=== PATIENT | female | born 1960 | race Hispanic/Latino ===

== ENCOUNTER 2016-07-08 21:41 | Emergency (ER) | payer MEDICAID ==
[2016-07-08 23:56] LABS: Bacteria,Urine 2+ /HPF (Negative); Bilirubin,Urine NEG (Negative); Blood,Urine SM (Negative); Ketones,Urine NEG (Negative); Leukocyte Esterase,Urine MOD (Negative); Mucus,Urine FEW /HPF; Nitrite,Urine NEG (Negative); Protein,Urine <15 mg/dL mg/dL (Negative); Urobilinogen,Urine < 2.0 mg/dL (<2.0)
[2016-07-09] MEDS ORDERED: MORPHINE IV ONE (08:01)
--- NOTE | 2016-07-09 08:53 | Cat Scan Report ---
CT scan of abdomen and pelvis without IV contrast: History: Flank pain. Findings Normal lung bases. No pleural pericardial effusion. Normal liver spleen pancreas. Patient status postcholecystectomy. Normal adrenals. There is there is 6 mm, 5 mm, 2 mm and 1 mm nonobstructing calculi noted at the right kidney. There is 2 mm and 1 mm nonobstructing calculi noted left kidney. Normal bladder. No free intraperitoneal fluid or air. No evidence of adenopathy. Grossly normal aorta. Umbilical hernia containing mesenteric fat. Diverticulosis sigmoid colon. No evidence of diverticulitis. No evidence of appendicitis. Impression: Nonobstructing calculi right and left kidney. Umbilical hernia containing mesenteric fat. Diverticulosis sigmoid colon.
--- NOTE | 2016-07-09 10:27 | Emergency Department Report ---
ED Abdominal Pain HPI - General Chief Complaint: Abdominal Pain Stated Complaint: FLANK PAIN Time Seen by Provider: 07/09/16 10:27 Source: patient Mode of arrival: Ambulatory Limitations: No Limitations - History of Present Illness Initial Comments: The patient reports chronic r flank pain and a hx of [place]. She denies chronic pain management at a clinic. She does not have a urologist in the area. Pain is intermittent and not significant at this time. MD Complaint: flank pain -: month(s) Location: R flank Radiation: none Migration to: no migration Quality: aching Consistency: intermittent, now resolved Improves With: nothing Worsens With: nothing Context: other (ks) Associated Symptoms: denies other symptoms - Related Data Previous Rx's Medication Instructions Recorded Last Taken Type HYDROcodone/APAP 5-325 [[place] 1 each PO Q6HR PRN #10 tablet 07/09/16 Unknown Rx 5/325] Nitrofurantoin [place]/M-Cryst 100 mg PO Q12HR #7 capsule 07/09/16 Unknown Rx [Macrobid CAP] Allergies Allergy/AdvReac Type Severity Reaction Status Date / Time acetaminophen Allergy Rash Verified 04/16/13 05:28 [From Darvocet-N 100] ciprofloxacin [From Cipro] Allergy Rash Verified 04/16/13 05:28 hydromorphone HCl Allergy Rash Verified 04/16/13 05:28 [From Dilaudid] ketorolac tromethamine Allergy Rash Verified 04/16/13 05:28 [From Toradol] nalbuphine HCl [From Nubain] Allergy Rash Verified 04/16/13 05:28 propoxyphene napsylate Allergy Rash Verified 04/16/13 05:28 [From Darvocet-N 100] tramadol HCl [From Ultram] Allergy Rash Verified 11/21/15 07:23 ED Review of Systems ROS: Stated complaint: FLANK PAIN Other details as noted in HPI Constitutional: denies: chills, fever Eyes: denies: eye pain, eye discharge, vision change ENT: denies: ear pain, throat pain Respiratory: denies: cough, shortness of breath, wheezing Cardiovascular: denies: chest pain, palpitations Endocrine: no symptoms reported Gastrointestinal: denies: abdominal pain, nausea, diarrhea Genitourinary: denies: urgency, dysuria, discharge Musculoskeletal: back pain. denies: joint swelling, arthralgia Skin: denies: rash, lesions Neurological: denies: headache, weakness, paresthesias Psychiatric: denies: anxiety, depression Hematological/Lymphatic: denies: easy bleeding, easy bruising ED Past Medical Hx - Past Medical History Previous Medical History?: Yes Hx Hypertension: Yes Hx CVA: No Hx Heart Attack/AMI: No Hx Congestive Heart Failure: No Hx Diabetes: No Hx Deep Vein Thrombosis: No Hx Pulmonary Embolism: No Hx GERD: No Hx Liver Disease: No Hx Renal Disease: No Hx Sickle Cell Disease: No Hx Arthritis: No Hx Headaches / Migraines: No Hx Seizures: No Hx Kidney Stones: Yes Hx Psychiatric Treatment: No Hx Asthma: No Hx COPD: No Hx Tuberculosis: No Hx Dementia: No Hx HIV: No Additional medical history: chronic back pain - Surgical History Past Surgical History?: Yes Hx Coronary Stent: No Hx Open Heart Surgery: No Hx Pacemaker: No Hx Internal Defibrillator: No Hx Cholecystectomy: Yes Hx Appendectomy: Yes Hx Breast Surgery: No Additional Surgical History: hysterectomy, hernia repair - Social History Smoking Status: Current Every Day Smoker Substance Use Type: None - Medications Home Medications: Home Medications Medication Instructions Recorded Confirmed Last Taken Type HYDROcodone/APAP 5-325 [[place] 1 each PO Q6HR PRN #10 tablet 07/09/16 Unknown Rx 5/325] Nitrofurantoin [place]/M-Cryst 100 mg PO Q12HR #7 capsule 07/09/16 Unknown Rx [Macrobid CAP] ED Physical Exam - General Limitations: No Limitations General appearance: alert, in no apparent distress - Head Head exam: Present: atraumatic, normocephalic - Eye Eye exam: Present: normal appearance, PERRL, EOMI. Absent: scleral icterus - ENT ENT exam: Present: mucous membranes moist - Neck Neck exam: Present: normal inspection - Respiratory Respiratory exam: Present: normal lung sounds bilaterally. Absent: respiratory distress - Cardiovascular Cardiovascular Exam: Present: regular rate, normal rhythm. Absent: systolic murmur, diastolic murmur, rubs, gallop - GI/Abdominal GI/Abdominal exam: Present: soft, normal bowel sounds. Absent: distended, tenderness, guarding, rebound, rigid, organomegaly, mass, bruit, pulsatile mass - Extremities Exam Extremities exam: Present: normal inspection - Back Exam Back exam: Present: normal inspection - Neurological Exam Neurological exam: Present: alert, oriented X3, CN II-XII intact. Absent: motor sensory deficit - Psychiatric Psychiatric exam: Present: normal affect, normal mood - Skin Skin exam: Present: warm, dry, intact, normal color. Absent: rash ED Course Vital Signs 07/08/16 07/09/16 07/09/16 22:07 03:55 07:30 Temperature 98.5 F 98.1 F Pulse Rate 90 100 H 88 Respiratory 20 20 18 Rate Blood Pressure 151/110 162/100 Blood Pressure 171/93 [Right] O2 Sat by Pulse 99 100 99 Oximetry 07/09/16 08:14 Temperature Pulse Rate Respiratory 18 Rate Blood Pressure Blood Pressure [Right] O2 Sat by Pulse Oximetry - Reevaluation(s) Reevaluation #1: Patient is given analgesia. She is now asymptomatic. She is appropriate for outpatient management. She will be referred 07/09/16 12:04 ED Medical Decision Making - Lab Data Laboratory Results - last 24 hr 07/08/16 22:17 Urine Color Straw Urine Turbidity Clear Urine pH 5.0 Ur Specific [place] 1.013 Urine Protein <15 mg/dl Urine Glucose (UA) Neg Urine Ketones Neg Urine Blood Sm Urine Nitrite Neg Urine Bilirubin Neg Urine Urobilinogen < 2.0 Ur Leukocyte Esterase Mod Urine WBC (Auto) 17.0 H Urine RBC (Auto) 1.0 U Epithel Cells (Auto) < 1.0 Urine Bacteria (Auto) 2+ Amorphous Crystals Few Hyaline Casts 1 Urine Mucus Few - Radiology Data interpreted by me: CT the abdomen showed nonobstructing bilateral nephrolithiasis. There is an umbilical hernia containing mesenteric fat. There is diverticulosis in the sigmoid colon. There is no acute process noted. Critical care attestation.: If time is entered above; I have spent that time in minutes in the direct care of this critically ill patient, excluding procedure time. ED Disposition Clinical Impression: Right flank pain UTI (urinary tract infection) Qualifiers: Urinary tract infection type: site unspecified Hematuria presence: without hematuria Qualified Code(s): N39.0 - Urinary tract infection, site not specified Umbilical hernia Qualifiers: Obstruction and gangrene presence: without obstruction or gangrene Qualified Code(s): K42.9 - Umbilical hernia without obstruction or gangrene Diverticulosis Qualifiers: Diverticulosis site: diverticulosis of large intestine Diverticulosis bleeding : diverticulosis without bleeding Qualified Code(s): K57.30 - Diverticulosis of large intestine without perforation or abscess without bleeding Disposition: DISCHARGED TO HOME OR SELFCARE Is pt being admited?: No Does the pt Need Aspirin: No Condition: Stable Instructions: Abdominal Pain (ED), Flank Pain (ED), Urinary Tract Infection in Women (ED) Additional Instructions: You have kidney stones. I have referred due to a kidney stone specialist. You do have a small umbilical hernia. I've referred him to a surgeon. General care at [facility]. Antibiotic for urine infection. Rx for pain as needed. Prescriptions: HYDROcodone/APAP 5-325 [[place] 5/325] 1 each PO Q6HR PRN #10 tablet PRN Reason: Pain Nitrofurantoin [place]/M-Cryst [Macrobid CAP] 100 mg PO Q12HR #7 capsule Referrals: PRIMARY CAREMD [Primary Care Provider] - 3-5 Days [facility] [Provider Group] - 3-5 Days OVI LEDEZMA MD [Staff Physician] - 3-5 Days [facility] [Provider Group] - 3-5 Days Time of Disposition: 12:08
[2016-07-09 12:52] VITALS: BP 156/84
== END 2016-07-09 12:10 | disposition home or self-care (01) ==
LOC: ED 21:41
DX: N39.0 Urinary tract infection, site not specified (principal); K42.9 Umbilical hernia without obstruction or gangrene; K57.30 Diverticulosis of large intestine without perforation or abscess without bleeding; I10 Essential (primary) hypertension; G89.29 Other chronic pain; Z90.710 Acquired absence of both cervix and uterus; Z90.49 Acquired absence of other specified parts of digestive tract; F17.200 Nicotine dependence, unspecified, uncomplicated; Z88.8 Allergy status to other drugs, medicaments and biological substances
CPT/HCPCS: 74176; 81001; 96374; 99284; J2270

== ENCOUNTER 2016-08-01 18:21 | Inpatient (IN) | payer MEDICAID ==
[2016-08-01 19:09] LABS: Basophils % (Auto) 0.3 % (0.0-1.8); Eosinophils % (Auto) 0.8 % (0.0-4.3); Hematocrit 37.8 % (30.3-42.9); Mean Corpuscular HGB Conc 32 % (30-34); Mean Corpuscular Volume 81 fl (79-97); Platelet Count 309 K/mm3 (140-440); Red Blood Count 4.68 M/mm3 (3.65-5.03); Red Cell Distribution Width 16.5 % (13.2-15.2); White Blood Count 13.8 K/mm3 (4.5-11.0)
[2016-08-01 19:10] LABS: Mean Corpuscular Hemoglobin 26 pg (28-32)
[2016-08-01 19:18] LABS: Bacteria,Urine 1+ /HPF (Negative); Bilirubin,Urine NEG (Negative); Blood,Urine SM (Negative); Ketones,Urine NEG (Negative); Leukocyte Esterase,Urine MOD (Negative); Nitrite,Urine POS (Negative); Protein,Urine <15 mg/dL mg/dL (Negative); Urobilinogen,Urine < 2.0 mg/dL (<2.0)
[2016-08-01 19:30] LABS: Albumin 4.3 g/dL (3.9-5); Albumin/Globulin Ratio 1.2 %; BUN/Creatinine Ratio 18.82; Bilirubin,Total 0.2 mg/dL (0.1-1.2); Calcium 9.2 mg/dL (8.4-10.2); Chloride 100.5 mmol/L (98-107); Total Protein 7.9 g/dL (6.3-8.2)
[2016-08-01] MEDS ORDERED: NACL 0.9% 1000 ML 2,000 ML IV ONE (21:07)
[2016-08-01] MEDS ORDERED: MORPHINE IV ONE (21:07)
--- NOTE | 2016-08-01 21:09 | Emergency Department Report ---
ED General Adult HPI - General Chief complaint: Abdominal Pain Stated complaint: FLANK PAIN/POSS KIDNEY STONES Time Seen by Provider: 08/01/16 21:01 Source: patient, RN notes reviewed, old records reviewed Mode of arrival: Ambulatory Limitations: No Limitations - History of Present Illness Initial comments: This is a 55-year-old female. She is previously unknown to me. She reports a past medical history of multiple kidney stones, hypertension. The patient presents to the ER complaining of flank pain. The flank pain is on the right side. She indicates to me that it does not radiate anywhere. She admits to dysuria, urinary frequency and hematuria. No nausea, vomiting or diarrhea. No fevers or chills. No chest pain or shortness of breath. She is defecating normally. Symptoms are constant. Pain increases with palpation, decreases with rest. -: Gradual Location: abdomen Radiation: non-radiation Quality: aching Consistency: constant Improves with: rest Worsens with: movement Associated Symptoms: loss of appetite, malaise. denies: confusion, chest pain, cough, diaphoresis, fever/chills, headaches - Related Data Previous Rx's Medication Instructions Recorded Last Taken Type HYDROcodone/APAP 5-325 [[place] 1 each PO Q6HR PRN #10 tablet 07/09/16 Unknown Rx 5/325] Nitrofurantoin [place]/M-Cryst 100 mg PO Q12HR #7 capsule 07/09/16 Unknown Rx [Macrobid CAP] Allergies Allergy/AdvReac Type Severity Reaction Status Date / Time acetaminophen Allergy Rash Verified 08/01/16 18:43 [From Darvocet-N 100] ciprofloxacin [From Cipro] Allergy Rash Verified 08/01/16 18:43 hydromorphone HCl Allergy Rash Verified 08/01/16 18:43 [From Dilaudid] ketorolac tromethamine Allergy Rash Verified 08/01/16 18:43 [From Toradol] nalbuphine HCl [From Nubain] Allergy Rash Verified 08/01/16 18:43 propoxyphene napsylate Allergy Rash Verified 08/01/16 18:43 [From Darvocet-N 100] tramadol HCl [From Ultram] Allergy Rash Verified 08/01/16 18:43 ED Review of Systems ROS: Stated complaint: FLANK PAIN/POSS KIDNEY STONES Other details as noted in HPI ED Past Medical Hx - Past Medical History Hx Hypertension: Yes Hx CVA: No Hx Heart Attack/AMI: No Hx Congestive Heart Failure: No Hx Diabetes: No Hx Deep Vein Thrombosis: No Hx Pulmonary Embolism: No Hx GERD: No Hx Liver Disease: No Hx Renal Disease: No Hx Sickle Cell Disease: No Hx Arthritis: No Hx Headaches / Migraines: No Hx Seizures: No Hx Kidney Stones: Yes Hx Psychiatric Treatment: No Hx Asthma: No Hx COPD: No Hx Tuberculosis: No Hx Dementia: No Hx HIV: No Additional medical history: chronic back pain - Surgical History Hx Coronary Stent: No Hx Open Heart Surgery: No Hx Pacemaker: No Hx Internal Defibrillator: No Hx Cholecystectomy: Yes Hx Appendectomy: Yes Hx Breast Surgery: No Additional Surgical History: hysterectomy, hernia repair. LITHOTRIPSY - Social History Smoking Status: Current Every Day Smoker Substance Use Type: Prescribed - Medications Home Medications: Home Medications Medication Instructions Recorded Confirmed Last Taken Type HYDROcodone/APAP 5-325 [[place] 1 each PO Q6HR PRN #10 tablet 07/09/16 Unknown Rx 5/325] Nitrofurantoin [place]/M-Cryst 100 mg PO Q12HR #7 capsule 07/09/16 Unknown Rx [Macrobid CAP] ED Physical Exam - General Limitations: No Limitations General appearance: alert, in no apparent distress - Head Head exam: Present: atraumatic, normocephalic - Eye Eye exam: Present: normal appearance, EOMI. Absent: nystagmus - ENT ENT exam: Present: normal exam, normal orophraynx, mucous membranes moist, normal external ear exam - Neck Neck exam: Present: normal inspection, full ROM. Absent: tenderness, meningismus - Respiratory Respiratory exam: Present: normal lung sounds bilaterally. Absent: respiratory distress, wheezes, rales, rhonchi, stridor, chest wall tenderness, accessory muscle use, decreased breath sounds - Cardiovascular Cardiovascular Exam: Present: regular rate, normal rhythm, normal heart sounds. Absent: bradycardia, tachycardia, irregular rhythm, systolic murmur, diastolic murmur, rubs, gallop - GI/Abdominal GI/Abdominal exam: Present: soft, normal bowel sounds. Absent: distended, tenderness, guarding, rebound, rigid, pulsatile mass - Extremities Exam Extremities exam: Present: normal inspection, full ROM, normal capillary refill. Absent: tenderness, pedal edema, joint swelling, calf tenderness - Back Exam Back exam: Present: normal inspection, CVA tenderness (R). Absent: CVA tenderness (L) - Neurological Exam Neurological exam: Present: alert, oriented X3, other (Extraocular movements intact. Tongue midline. No facial droop. Facial sensation intact to light touch in the V1, V2, V3 distribution bilaterally. 5 and 5 strength in 4 extremities.. Sensation is intact to light touch in 4 extremities.). Absent: motor sensory deficit - Psychiatric Psychiatric exam: Present: normal affect, normal mood - Skin Skin exam: Present: warm, dry, intact, normal color. Absent: rash ED Course Vital Signs 08/01/16 18:44 Temperature 97.7 F Pulse Rate 76 Respiratory 18 Rate Blood Pressure 158/103 O2 Sat by Pulse 100 Oximetry - Reevaluation(s) Reevaluation #1: 08/01/16 21:40 Differential diagnosis: Pyelonephritis, dehydration, acute renal insufficiency, obstructing renal stone, vasomotor nephropathy Assessment and plan: 55-year-old female with flank pain and flank tenderness, irritative urinary symptoms, urinalysis that suggests urinary tract infection, laboratory studies demonstrate elevated white blood cell count, and acute renal insufficiency. Most likely consistent with bowel nephritis. Given history of nephrolithiasis, a noncontrast CT scan of the abdomen and pelvis is ordered. She reports she can tolerate morphine, acetaminophen, ceftriaxone. The patient reports she is allergic and intolerant of fluoroquinolones. She will be loaded with ceftriaxone. 08/01/16 21:41 Reevaluation #2: 08/01/16 22:36 case d/w Hospital physician Dr Emery, who accepts patient to his service CT scan of abdomen and pelvis industries, stretching calcifications within the kidney. No stones noted in the ureters. No evidence of hydronephrosis or obstructive uropathy. ED Medical Decision Making - Lab Data Result diagrams: 08/01/16 18:51 08/01/16 18:51 Vital Signs 08/01/16 18:44 Temperature 97.7 F Pulse Rate 76 Respiratory 18 Rate Blood Pressure 158/103 O2 Sat by Pulse 100 Oximetry Lab Results 08/01/16 08/01/16 08/01/16 Range/Units 18:51 18:51 Unknown WBC 13.8 H (4.5-11.0) K/mm3 RBC 4.68 (3.65-5.03) M/mm3 Hgb 12.0 (10.1-14.3) gm/dl Hct 37.8 (30.3-42.9) % MCV 81 (79-97) fl MCH 26 L (28-32) pg MCHC 32 (30-34) % RDW 16.5 H (13.2-15.2) % Plt Count 309 (140-440) K/mm3 Lymph % (Auto) 20.1 (13.4-35.0) % [place] % (Auto) 3.7 (0.0-7.3) % Eos % (Auto) 0.8 (0.0-4.3) % Baso % (Auto) 0.3 (0.0-1.8) % Lymph # 2.8 (1.2-5.4) K/mm3 [place] # 0.5 (0.0-0.8) K/mm3 Eos # 0.1 (0.0-0.4) K/mm3 Baso # 0.0 (0.0-0.1) K/mm3 Seg Neutrophils % 75.1 H (40.0-70.0) % Seg Neutrophils # 10.4 H (1.8-7.7) K/mm3 Sodium 136 L (137-145) mmol/L Potassium 5.0 (3.6-5.0) mmol/L Chloride 100.5 (98-107) mmol/L Carbon Dioxide 21 L (22-30) mmol/L Anion Gap 20 mmol/L BUN 32 H (7-17) mg/dL Creatinine 1.7 H (0.7-1.2) mg/dL Estimated GFR 31 ml/min BUN/Creatinine Ratio 18.82 % Glucose 106 H (65-100) mg/dL Calcium 9.2 (8.4-10.2) mg/dL Total Bilirubin 0.2 (0.1-1.2) mg/dL AST 15 (5-40) units/L ALT 9 (7-56) units/L Alkaline Phosphatase 108 (35-129) units/L Total Protein 7.9 (6.3-8.2) g/dL Albumin 4.3 (3.9-5) g/dL Albumin/Globulin Ratio 1.2 % Lipase 22 (13-60) units/L Urine Color [place] (Yellow) Urine Turbidity Clear (Clear) Urine pH 5.0 (5.0-7.0) Ur Specific [place] 1.012 (1.003-1.030) Urine Protein <15 mg/dl (Negative) mg/dL Urine Glucose (UA) Neg (Negative) mg/dL Urine Ketones Neg (Negative) mg/dL Urine Blood Sm (Negative) Urine Nitrite Pos (Negative) Urine Bilirubin Neg (Negative) Urine Urobilinogen < 2.0 (<2.0) mg/dL Ur Leukocyte Esterase Mod (Negative) Urine WBC (Auto) 49.0 H (0.0-6.0) /HPF Urine RBC (Auto) 7.0 (0.0-6.0) /HPF U Epithel Cells (Auto) 1.0 (0-13.0) /HPF Urine Bacteria (Auto) 1+ (Negative) /HPF - Radiology Data Radiology results: report reviewed CT scan of the abdomen and pelvis without IV contrast shows no acute disease Critical care attestation.: If time is entered above; I have spent that time in minutes in the direct care of this critically ill patient, excluding procedure time. ED Disposition Clinical Impression: Pyelonephritis, Renal insufficiency Condition: Stable Instructions: Abdominal Pain (ED) Referrals: PRIMARY CARE, [Primary Care Provider] - 3-5 Days
[2016-08-01] MEDS ORDERED: ROCEPHIN/NS 2 GM/100 ML 2 GM/100 ML BAG IV ONE (22:00)
--- NOTE | 2016-08-01 22:10 | Cat Scan Report ---
FINAL REPORT EXAM: CT ABDOMEN PELVIS WO CON HISTORY: flank pain TECHNIQUE: Serial axial images through the abdomen and pelvis with coronal and sagittal reconstruction. PRIORS: None. FINDINGS: There is mild atelectasis in the dependent portion of the lung bases. No pleural effusion is seen. Gallbladder is surgically absent. The liver, pancreas, spleen and adrenal glands appear within normal limits. Nonobstructing calcifications are seen in the kidneys, bilaterally. The largest of these is on the right side, measuring 4.8 millimeters. No stones are seen along the course of the ureters. There is not evidence of hydronephrosis or other obstructive uropathy. Aorta is normal in caliber. Bladder appears normal. Uterus is absent. There is a fat containing paraumbilical hernia. No free fluid. Appendix is not identified with certainty. No inflammatory changes are seen associated with the cecum. Scattered diverticula are seen arising from the colon. Surgical sequelae are noted in the right inguinal region. No acute osseous abnormality is identified. There is spondylolysis at L5. IMPRESSION: 1. Nonobstructing calcifications are seen in the kidneys. The largest is on the right, and measures approximately 4.8 millimeters. No stones are seen along the course of the ureters. There is not evidence of hydronephrosis or other obstructive uropathy. 2. Diverticulosis. 3. No free fluid or inflammatory changes are seen in the abdomen or pelvis.
[2016-08-01] MEDS ORDERED: MILK OF MAGNESIA PO PRN (23:08)
[2016-08-01] MEDS ORDERED: ZOFRAN IV PRN (23:08)
[2016-08-01] MEDS ORDERED: DULCOLAX PR PRN (23:08)
[2016-08-01] MEDS ORDERED: AMBIEN PO PRN (23:08)
[2016-08-01] MEDS ORDERED: D5NS 1,000 ML IV SCH (23:45)
--- NOTE | 2016-08-01 23:45 | History and Physical Report ---
History of Present Illness Date of examination: 08/01/16 Date of admission: 08/01/16 23:08 Chief complaint: Right flank pain since this morning History of present illness: 55-year-old white female with history of hypertension and kidney stones presents to the emergency department with complaints of pain in the right flank since this morning and associated with dysuria and frequency of urination. She denies any fever or chills nausea or vomitings abdominal pain. She denies any sore throat dysphagia nasal congestion or headaches. Denies any chest pain or shortness of breath palpitations or syncope. She says she has had kidney stones in the past. Denies any weakness, decreased appetite or weight loss Past History Past Medical History: hypertension, other (kidney stones) Past Surgical History: appendectomy, cholecystectomy, hysterectomy Social history: smoking Family history: hypertension Medications and Allergies Allergies Allergy/AdvReac Type Severity Reaction Status Date / Time acetaminophen Allergy Rash Verified 08/01/16 18:43 [From Darvocet-N 100] ciprofloxacin [From Cipro] Allergy Rash Verified 08/01/16 18:43 hydromorphone HCl Allergy Rash Verified 08/01/16 18:43 [From Dilaudid] ketorolac tromethamine Allergy Rash Verified 08/01/16 18:43 [From Toradol] nalbuphine HCl [From Nubain] Allergy Rash Verified 08/01/16 18:43 propoxyphene napsylate Allergy Rash Verified 08/01/16 18:43 [From Darvocet-N 100] tramadol HCl [From Ultram] Allergy Rash Verified 08/01/16 18:43 Home Medications Medication Instructions Recorded Confirmed Last Taken Type HYDROcodone/APAP 5-325 [[place] 1 each PO Q6HR PRN #10 tablet 07/09/16 Unknown Rx 5/325] Nitrofurantoin [place]/M-Cryst 100 mg PO Q12HR #7 capsule 07/09/16 Unknown Rx [Macrobid CAP] Active Meds: Active Medications Amlodipine Besylate (Norvasc) 5 mg PO DAILY MIRYAM Bisacodyl (Dulcolax) 10 mg [place] QDAY PRN PRN Reason: Constipation unrelieved by MOM Heparin Sodium (Porcine) (Heparin) 5,000 unit SUB-Q Q8HR MIRYAM Ceftriaxone Sodium (Rocephin/Ns 1 Gm/50 Ml) 1 gm in 50 mls @ 100 mls/hr IV Q24HR MIRYAM PRN Reason: Protocol Dextrose/Sodium Chloride (D5ns) 1,000 mls @ 100 mls/hr IV DIRECT MIRYAM Magnesium Hydroxide (Milk Of Magnesia) 30 ml PO Q4H PRN PRN Reason: Constipation Morphine Sulfate (Morphine) 2 mg IV Q4H PRN PRN Reason: Pain, Moderate (4-6) Ondansetron HCl (Zofran) 4 mg IV Q8H PRN PRN Reason: N/V unrelieved by Reglan Zolpidem Tartrate (Ambien) 5 mg PO QHS PRN PRN Reason: Insomnia Review of Systems All systems: negative (as stated above in the history of present illness) Exam - Constitutional Vitals: Temp Pulse Resp BP Pulse Ox 97.7 F 76 18 158/103 100 08/01/16 18:44 08/01/16 18:44 08/01/16 18:44 08/01/16 18:44 08/01/16 18:44 General appearance: Present: no acute distress, well-nourished - EENT Eyes: Present: PERRL, EOM intact ENT: hearing intact, clear oral mucosa, no thrush - Neck Neck: Present: supple, normal ROM. Absent: masses or JVD - Respiratory Respiratory effort: normal Respiratory: bilateral: CTA, negative: rales, rhonchi - Cardiovascular Rhythm: regular Heart Sounds: Present: S1 & S2 - Extremities Extremities: No edema - Abdominal General gastrointestinal: Present: soft, non-tender, non-distended, other ( moderate tenderness in the right flank). Absent: hepatomegaly, splenomegaly - Rectal Rectal Exam: deferred - Integumentary Integumentary: Present: clear - Musculoskeletal Musculoskeletal: strength equal bilaterally - Psychiatric Psychiatric: appropriate mood/affect - Neurologic Neurologic: CNII-XII intact, no focal deficits, moves all extremities Results - Labs CBC & Chem 7: 08/01/16 18:51 08/01/16 18:51 Labs: Abnormal lab results 08/01/16 Range/Units Unknown Urine WBC (Auto) 49.0 H (0.0-6.0) /HPF Assessment and Plan - Patient Problems (1) Pyelonephritis Current Visit: Yes Status: Acute Plan to address problem: Urine analysis results reviewed She has moderate right flank tenderness CT of the abdomen showed the a nonobstructing kidney stones with no evidence of any hydronephrosis *Continue ceftriaxone which was started in the ED Pain control (2) Acute kidney injury Current Visit: Yes Status: Acute Plan to address problem: Gentle hydration and monitor renal function Avoid nephrotoxins (3) Hypertension Current Visit: Yes Status: Acute Qualifiers: Hypertension type: H Plan to address problem: We will start the patient on amlodipine 5 mg
[2016-08-02] MEDS: MORPHINE IV PRN ×3 (01:33→09:14)
[2016-08-02 05:37] LABS: BUN/Creatinine Ratio 16.87; Chloride 103.7 mmol/L (98-107); Potassium 4.4 mmol/L (3.6-5.0)
[2016-08-02] MEDS ORDERED: HEPARIN SUB-Q SCH (06:00)
[2016-08-02 08:01] VITALS: BP 138/90
--- NOTE | 2016-08-02 08:57 | Admit Criteria Form ---
Admission Criteria Documentation: PYELONEPHRITIS, ACUTE Clinical Indications for Admission to Inpatient Care (Place 'X' for any and all applicable criteria): Admission is indicated for ANY ONE of the following 1,2,3,4,5 [ ]I. Outpatient treatment has failed or is not feasible (eg, multidrug- resistant organism).5 [ ]II. beyond 24 weeks' gestation6 [ ]III. Hemodynamic instability [ ]IV. Immunocompromised state (eg, AIDS, diabetes, sickle cell disease) []V. Known renal or urologic abnormalities (eg, indwelling catheter, structural abnormalities, renal calculi, urinary stent, previous urologic surgery) [ ]. Condition that requires drainage procedure, including ANY ONE of the following: [ ]a) Urinary obstruction [ ]b) Pyelitis [ ]c) Pyonephrosis [ ]d) Renal or perinephric abscess [ ]e) Emphysematous pyelonephritis 7 [X]VII. Inpatient admission required rather than observation care (Also use Pyelonephritis, Acute: Observation Care Criteria as appropriate) because of ANY ONE of the following: [ ]a) High fever or infection requiring inpatient admission as indicated by ANY ONE of [id number] [ ]A. Documented bacteremia [ ]B. Temp>104.9 cidlysf2R (oral) [ ]C. Temp>103.10F (oral) or <96.80F (rectal) that does not respond to all emergency treatment [X]b) Acute renal failure [ ]c) Other significant finding or clinical condition judged not to be within the scope of observation care [ ]d) IV fluid to replace significant ongoing (eg, for over 24hrs) losses (> 3 L/m2 per day) [X]e) Other condition,treatment or monitoring requiring inpatient admission The original [facility] content created by [employer] has been revised. The portions of the content which have been revised are identified through the use of italic text or in bold, and [facility] has neither reviewed nor approved the modified material. All other unmodified content is copyright [facility]. Please see references footnoted in the original [facility] edition 2016 Admission Criteria Met: Yes
[2016-08-02] MEDS ORDERED: PERCOCET 5/325 PO PRN (09:16)
[2016-08-02] MEDS ORDERED: NORVASC PO SCH (10:00)
[2016-08-02] MEDS ORDERED: ROCEPHIN/NS 1 GM/50 ML 1 GM/50 ML BAG IV SCH (10:00)
--- NOTE | 2016-08-02 16:15 | Progress Note ---
Assessment and Plan 1. Acute Pyelonephritis: On iv Ceftriaxone: 2. Acute Renal insufficiency. Prerenal azotenmia; Conatinue with ivf 3. HTN optimize control with Amodipine 4. History of renal stone Pain comntrol with Percocet. incrase fluid intake 5. Metaboic acidosis with decrease Co2 level and elevated BUN and cr 6. DVT Prophylaxis with heparing Pt decided to sign against medical advise despite advise to continue with iv hydration to improve Acute renal insufficiency and iv anticiotic to improve Leukocytosis. Subjective Date of service: 08/02/16 Principal diagnosis: acute pyelonephritis Interval history: No fever. Flank pain getting better Objective - Constitutional Vitals: Vital Signs - 12hr 08/02/16 08:00 Temperature 98.3 F Pulse Rate [ 62 Right] Respiratory 20 Rate Blood Pressure 138/90 [Right Arm] O2 Sat by Pulse 98 Oximetry General appearance: Present: no acute distress, well-nourished - EENT Eyes: PERRL, EOM intact ENT: hearing intact, clear oral mucosa - Neck Neck: supple, normal ROM - Respiratory Respiratory effort: normal Respiratory: bilateral: CTA - Breasts Breasts: normal - Cardiovascular Rhythm: regular Heart Sounds: Present: S1 & S2. Absent: gallop, rub Extremities: pulses intact, No edema, normal color, Full ROM - Gastrointestinal General gastrointestinal: Present: soft, non-tender, non-distended, normal bowel sounds - Integumentary Integumentary: clear, warm, dry - Musculoskeletal Musculoskeletal: 1, strength equal bilaterally - Neurologic Neurologic: moves all extremities - Psychiatric Psychiatric: memory intact, appropriate mood/affect, intact judgment & insight - Labs CBC & Chem 7: 08/01/16 18:51 08/02/16 04:00 Labs: Abnormal lab results 08/01/16 08/02/16 Range/Units Unknown 04:00 Carbon Dioxide 20 L (22-30) mmol/L BUN 27 H (7-17) mg/dL Creatinine 1.6 H (0.7-1.2) mg/dL Glucose 109 H (65-100) mg/dL Urine WBC (Auto) 49.0 H (0.0-6.0) /HPF
--- NOTE | 2016-08-02 16:24 | Discharge Summary ---
Providers - Providers Date of Admission: 08/01/16 23:08 Date of discharge: 08/02/16 Attending physician: RUDY CARTER none Primary care physician: JARAD EWING MD Hospitalization Reason for admission: acute pyelonephritis, acute renal insufficiency Condition: Stable Pertinent studies: CT scan of abdomen and pelvis that shows evidence of acute pyelonephritis Procedures: None Hospital course: Patient is a 5-year-old lady who has a history of hypertension and kidney stones presented emergency department on 08/02/2015 with a complaint of right flank pain denies frequency and dysuria. Urinalysis was unremarkable for evidence of UTI. CT scan of abdomen and pelvis showed evidence of right pyelonephritis. Denies any nausea vomiting, chills, no hematuria. Denies any chest pain or syncope. Patient was commenced on IV fluid and IV ceftriaxone. Blood was found to be elevated at 32 and creatinine 1.6. This slightly improved. Patient still had leukocytosis of 13.2. Had a decreased CO2 level suggestive of metabolic acidosis. Patient discharged against medical advice despite suggestions to continue to have that IV antibiotics IV fluid. Disposition: LEFT AGAINST MEDICAL ADVICE Core Measure Documentation - Palliative Care Palliative Care/ Comfort Measures: Not Applicable - Core Measures Any of the following diagnoses?: none Exam - Constitutional Vitals: Temp Pulse Resp BP Pulse Ox 98.3 F 62 20 138/90 98 08/02/16 08:00 08/02/16 08:00 08/02/16 08:00 08/02/16 08:00 08/02/16 08:00 General appearance: Present: no acute distress, well-nourished - EENT Eyes: Present: PERRL ENT: hearing intact, clear oral mucosa - Neck Neck: Present: supple, normal ROM - Respiratory Respiratory effort: normal Respiratory: bilateral: CTA - Cardiovascular Heart Sounds: Present: S1 & S2. Absent: rub, click - Extremities Extremities: pulses symmetrical, No edema Peripheral Pulses: within normal limits - Abdominal General gastrointestinal: Present: soft, non-tender, non-distended, normal bowel sounds - Integumentary Integumentary: Present: clear, warm, dry - Musculoskeletal Musculoskeletal: gait normal, strength equal bilaterally - Psychiatric Psychiatric: appropriate mood/affect, intact judgment & insight - Neurologic Neurologic: CNII-XII intact, moves all extremities Plan Activity: advance as tolerated Weight Bearing Status: Weight Bear as Tolerated Follow up with: PRIMARY CARE, [Primary Care Provider] - 3-5 Days (Patient discharged AGAINST MEDICAL ADVICE)
== END 2016-08-02 11:49 | disposition left against medical advice (07) | DRG 683 ==
LOC: ED 18:21 → 3A 23:08
PROVIDERS: ADMIT Internal Medicine; ATTEND Family Medicine
DX: N17.9 Acute kidney failure, unspecified (principal); E87.2 Acidosis; N10 Acute pyelonephritis; F17.200 Nicotine dependence, unspecified, uncomplicated; I10 Essential (primary) hypertension; Z88.8 Allergy status to other drugs, medicaments and biological substances; Z90.49 Acquired absence of other specified parts of digestive tract; Z90.710 Acquired absence of both cervix and uterus; Z82.49 Family history of ischemic heart disease and other diseases of the circulatory system
CPT/HCPCS: 36415; 74176; 80048; 80053; 81001; 82140; 83690; 85025; 87040; 87086; 96361; 96365; 96375; J0696; J1644; J2270; J7030; J7042

== ENCOUNTER 2016-09-07 06:42 | Emergency (ER) | payer MEDICAID ==
--- NOTE | 2016-09-07 10:47 | Emergency Department Report ---
ED General Adult HPI - General Chief complaint: Abdominal Pain Stated complaint: FLANK PAIN Time Seen by Provider: 09/07/16 10:42 Source: patient Mode of arrival: Ambulatory Limitations: No Limitations - Related Data Previous Rx's Medication Instructions Recorded Last Taken Type HYDROcodone/APAP 5-325 [[place] 1 each PO Q6HR PRN #10 tablet 07/09/16 Unknown Rx 5/325] Nitrofurantoin [place]/M-Cryst 100 mg PO Q12HR #7 capsule 07/09/16 Unknown Rx [Macrobid CAP] Allergies Allergy/AdvReac Type Severity Reaction Status Date / Time acetaminophen Allergy Rash Verified 08/01/16 18:43 [From Darvocet-N 100] ciprofloxacin [From Cipro] Allergy Rash Verified 08/01/16 18:43 hydromorphone HCl Allergy Rash Verified 08/01/16 18:43 [From Dilaudid] ketorolac tromethamine Allergy Rash Verified 08/01/16 18:43 [From Toradol] nalbuphine HCl [From Nubain] Allergy Rash Verified 08/01/16 18:43 propoxyphene napsylate Allergy Rash Verified 08/01/16 18:43 [From Darvocet-N 100] tramadol HCl [From Ultram] Allergy Rash Verified 08/01/16 18:43 ED Review of Systems ROS: Stated complaint: FLANK PAIN Other details as noted in HPI ED Past Medical Hx - Past Medical History Hx Hypertension: Yes Hx CVA: No Hx Heart Attack/AMI: No Hx Congestive Heart Failure: No Hx Diabetes: No Hx Deep Vein Thrombosis: No Hx Pulmonary Embolism: No Hx GERD: No Hx Liver Disease: No Hx Renal Disease: No Hx Sickle Cell Disease: No Hx Arthritis: No Hx Headaches / Migraines: No Hx Seizures: No Hx Kidney Stones: Yes Hx Psychiatric Treatment: No Hx Asthma: No Hx COPD: No Hx Tuberculosis: No Hx Dementia: No Hx HIV: No Additional medical history: chronic back pain - Surgical History Hx Coronary Stent: No Hx Open Heart Surgery: No Hx Pacemaker: No Hx Internal Defibrillator: No Hx Cholecystectomy: Yes Hx Appendectomy: Yes Hx Breast Surgery: No Additional Surgical History: hysterectomy, hernia repair. LITHOTRIPSY - Social History Smoking Status: Current Every Day Smoker Substance Use Type: None - Medications Home Medications: Home Medications Medication Instructions Recorded Confirmed Last Taken Type HYDROcodone/APAP 5-325 [Stella 1 each PO Q6HR PRN #10 tablet 07/09/16 Unknown Rx 5/325] Nitrofurantoin [place]/M-Cryst 100 mg PO Q12HR #7 capsule 07/09/16 Unknown Rx [Macrobid CAP] ED Physical Exam - General Limitations: No Limitations ED Course Vital Signs 09/07/16 07:38 Temperature 98.2 F Pulse Rate 80 Respiratory 16 Rate Blood Pressure 173/104 O2 Sat by Pulse 100 Oximetry Critical care attestation.: If time is entered above; I have spent that time in minutes in the direct care of this critically ill patient, excluding procedure time. ED Disposition Instructions: Abdominal Pain (ED) Referrals: PRIMARY CARE, [Primary Care Provider] - 3-5 Days
[2016-09-07] MEDS ORDERED: NORCO 7.5/325 PO ONE (10:49)
[2016-09-07 11:28] LABS: Bacteria,Urine 2+ /HPF (Negative); Bilirubin,Urine NEG (Negative); Blood,Urine SM (Negative); Ketones,Urine NEG (Negative); Leukocyte Esterase,Urine LG (Negative); Mucus,Urine FEW /HPF; Nitrite,Urine POS (Negative); Protein,Urine <15 mg/dL mg/dL (Negative); Urobilinogen,Urine < 2.0 mg/dL (<2.0)
--- NOTE | 2016-09-07 11:29 | Cat Scan Report ---
CT OF THE ABDOMEN AND PELVIS WITHOUT CONTRAST HISTORY: Right flank pain. TECHNIQUE: Helical CT without contrast. Sagittal and coronal reformatted images. FINDINGS: Compared to 08/01/16. Bilateral renal calyceal stones are again noted and not significantly changed. There are approximately 4 stones in the right kidney with the largest measuring 7 mm near the inferior pole. There are approximately 3 stones measuring up to 2 mm in the superior left kidney. No ureteral stones or bladder stones are identified. The liver and spleen are unremarkable. The gallbladder has been surgically removed. No biliary dilatation. There is mild fatty atrophy of the pancreas. The adrenal glands are symmetric and normal. The bowel loops are normal caliber and wall thickness. Hysterectomy and appendectomy changes are suspected. No evidence for ascites, adenopathy or acute inflammation. The lung bases are clear. Normal heart size. No suspicious bony lesion. IMPRESSION: Bilateral renal stones, nonobstructing. No ureteral stones or hydronephrosis are identified. Surgical changes as described. No acute inflammatory process is appreciated.
[2016-09-07] MEDS ORDERED: XYLOCAINE 1% MPF 5 mL INFILTRATI ONE ×2 (13:08→13:58)
--- NOTE | 2016-09-07 13:21 | Emergency Department Report ---
HPI - General Chief Complaint: Abdominal Pain Time Seen by Provider: 09/07/16 10:42 - HPI HPI: She is a 56-year-old female with a history of kidney stones presents to ED complaining of right-sided flank pain times today. Patient states around 2 AM this morning she started experiencing some right-sided flank pain. Patient states she is on some urinary frequency the past day. She denies vaginal bleeding, vaginal discharge. She denies fevers/chills/nausea/vomiting/abdominal pain/chest pains or shortness of breath. ED Past Medical Hx - Past Medical History Hx Hypertension: Yes Hx CVA: No Hx Heart Attack/AMI: No Hx Congestive Heart Failure: No Hx Diabetes: No Hx Deep Vein Thrombosis: No Hx Pulmonary Embolism: No Hx GERD: No Hx Liver Disease: No Hx Renal Disease: No Hx Sickle Cell Disease: No Hx Arthritis: No Hx Headaches / Migraines: No Hx Seizures: No Hx Kidney Stones: Yes Hx Psychiatric Treatment: No Hx Asthma: No Hx COPD: No Hx Tuberculosis: No Hx Dementia: No Hx HIV: No Additional medical history: chronic back pain - Surgical History Hx Coronary Stent: No Hx Open Heart Surgery: No Hx Pacemaker: No Hx Internal Defibrillator: No Hx Cholecystectomy: Yes Hx Appendectomy: Yes Hx Breast Surgery: No Additional Surgical History: hysterectomy, hernia repair. LITHOTRIPSY - Social History Smoking Status: Current Every Day Smoker Substance Use Type: None - Medications Home Medications: Home Medications Medication Instructions Recorded Confirmed Last Taken Type HYDROcodone/APAP 5-325 [[place] 1 each PO Q6HR PRN #10 tablet 07/09/16 Unknown Rx 5/325] Nitrofurantoin [place]/M-Cryst 100 mg PO Q12HR #7 capsule 07/09/16 Unknown Rx [Macrobid CAP] Ibuprofen [Motrin] 800 mg PO Q8HR PRN #40 tablet 09/07/16 Unknown Rx oxyCODONE /ACETAMINOPHEN [Percocet 1 tab PO Q6HR PRN #16 tablet 09/07/16 Unknown Rx 5/325] ED Review of Systems ROS: Stated complaint: FLANK PAIN Other details as noted in HPI Constitutional: denies: chills, fever Eyes: denies: eye pain, eye discharge, vision change ENT: denies: ear pain, throat pain Respiratory: denies: cough, shortness of breath, wheezing Cardiovascular: denies: chest pain, palpitations Endocrine: no symptoms reported Gastrointestinal: denies: abdominal pain, nausea, diarrhea, constipation, hematemesis Genitourinary: frequency. denies: urgency, dysuria, hematuria, discharge, abnormal menses, dyspareunia Musculoskeletal: denies: back pain, joint swelling, arthralgia Skin: denies: rash, lesions Neurological: denies: headache, weakness, numbness, paresthesias, confusion Psychiatric: denies: anxiety, depression Hematological/Lymphatic: denies: easy bleeding, easy bruising Physical Exam - Physical Exam Vital Signs: Vital Signs 09/07/16 07:38 Temperature 98.2 F Pulse Rate 80 Respiratory 16 Rate Blood Pressure 173/104 O2 Sat by Pulse 100 Oximetry Physical Exam: GENERAL: Alert and oriented x3, no apparent distress, Normal Gait, atraumatic. HEAD: Head is normocephalic and a-traumatic. NECK: Supple. Non edematous, No carotid bruits. No lymphadenopathy or thyromegaly. No C-spine tenderness LUNGS: Symetrical with respiration, No wheezing, no rales or crackles, CTAB. HEART: S1, S2 present, regular rate and rhythm without murmur, no rubs, no gallops. ABDOMEN: No organomegaly was noted,Positive bowel sounds, soft, and non- distended. . Nontender to palpation on all Quadrants, Right sided CVA tenderness. NEUROLOGIC: The patient is cooperative with no focal neurologic deficits. Cranial nerves II through XII are grossly intact. Normal speech. SKIN: Warm and dry, No lesions, No ulceration or induration present. ED Course Vital Signs 09/07/16 07:38 Temperature 98.2 F Pulse Rate 80 Respiratory 16 Rate Blood Pressure 173/104 O2 Sat by Pulse 100 Oximetry ED Medical Decision Making - Radiology Data Radiology results: report reviewed, image reviewed CT OF THE ABDOMEN AND PELVIS WITHOUT CONTRAST HISTORY: Right flank pain. TECHNIQUE: Helical CT without contrast. Sagittal and coronal reformatted images. FINDINGS: Compared to 08/01/16. Bilateral renal calyceal stones are again noted and not significantly changed. There are approximately 4 stones in the right kidney with the largest measuring 7 mm near the inferior pole. There are approximately 3 stones measuring up to 2 mm in the superior left kidney. No ureteral stones or bladder stones are identified. The liver and spleen are unremarkable. The gallbladder has been surgically removed. No biliary dilatation. There is mild fatty atrophy of the pancreas. The adrenal glands are symmetric and normal. The bowel loops are normal caliber and wall thickness. Hysterectomy and appendectomy changes are suspected. No evidence for ascites, adenopathy or acute inflammation. The lung bases are clear. Normal heart size. No suspicious bony lesion. IMPRESSION: Bilateral renal stones, nonobstructing. No ureteral stones or hydronephrosis are identified. Surgical changes as described. No acute inflammatory process is appreciated. Transcribed By: TTR Dictated By: RACH CHOUDHURY JR, MD Electronically Authenticated By: RACH CHOUDHURY JR, MD Signed Date/Time: 09/07/16 1120 - Medical Decision Making 56-year-old female presents with acute cystitis ED course: Patient received 1 tablet of [place], 500 mg of IV Rocephin and 1 dose of Norvasc Urinalysis shows 2+ bacteria, WBCs. CT scan shows uncomplicated bilateral kidney stones. Discussed all findings with patient. Patient looks comfortable. Patient is in no acute distress. Vital signs are normal eyes. Mildly elevated blood pressure due to patient being noncompliant with her medication. 1 dose of given in ED to reduce blood pressure. Patient is in not symptomatic has no signs of dizziness shortness of breath chest pain headache or blurry vision. Physician states she feels much better after post evaluation Critical care attestation.: If time is entered above; I have spent that time in minutes in the direct care of this critically ill patient, excluding procedure time. ED Disposition Clinical Impression: Bilateral kidney stones UTI (urinary tract infection) Qualifiers: Urinary tract infection type: acute cystitis Hematuria presence: with hematuria Qualified Code(s): N30.01 - Acute cystitis with hematuria Disposition: DISCHARGED TO HOME OR SELFCARE Is pt being admited?: No Does the pt Need Aspirin: No Condition: Stable Instructions: Abdominal Pain (ED), Urinary Tract Infection in Women (ED), Flank Pain (ED), Kidney Stones (ED), How to Strain Your Urine (ED) Prescriptions: Ibuprofen [Motrin] 800 mg PO Q8HR PRN #40 tablet PRN Reason: Pain oxyCODONE /ACETAMINOPHEN [Percocet 5/325] 1 tab PO Q6HR PRN #16 tablet PRN Reason: Pain Referrals: PRIMARY CARE, [Primary Care Provider] - 3-5 Days [facility] [Outside] - 3-5 Days [facility] [Outside] - 3-5 Days [facility] [Outside] - 3-5 Days Forms: Accompanied Note, Work/School Release Form(ED) Time of Disposition: 13:26
[2016-09-07] MEDS ORDERED: NORVASC PO ONE ×3 (13:28→13:59)
[2016-09-07] MEDS ORDERED: ROCEPHIN IV ONE (13:58)
[2016-09-07 13:59] VITALS: BP 163/69
[2016-09-07] MEDS ORDERED: ROCEPHIN 500 MG in NACL 0.9% 50 ML IV NR (14:00)
[2016-09-07] MEDS ORDERED: ROCEPHIN/NS 1 GM/50 ML 1 GM/50 ML BAG IV ONE ×2 (14:07→14:13)
== END 2016-09-07 15:18 | disposition home or self-care (01) ==
LOC: ED 06:42
DX: N20.0 Calculus of kidney (principal); N30.01 Acute cystitis with hematuria; I10 Essential (primary) hypertension; F17.200 Nicotine dependence, unspecified, uncomplicated
CPT/HCPCS: 74176; 81001; 96365; 99284; J0696

== ENCOUNTER 2016-11-24 18:05 | Inpatient (IN) | payer MEDICAID ==
[2016-11-24 21:20] LABS: Basophils % (Auto) 0.7 % (0.0-1.8); Eosinophils % (Auto) 1.1 % (0.0-4.3); Hematocrit 38.6 % (30.3-42.9); Hemoglobin 12.3 gm/dl (10.1-14.3); Mean Corpuscular HGB Conc 32 % (30-34); Mean Corpuscular Hemoglobin 27 pg (28-32); Mean Corpuscular Volume 84 fl (79-97); Platelet Count 330 K/mm3 (140-440); Red Blood Count 4.62 M/mm3 (3.65-5.03); Red Cell Distribution Width 14.5 % (13.2-15.2); White Blood Count 14.9 K/mm3 (4.5-11.0)
[2016-11-24 21:38] LABS: BUN/Creatinine Ratio 15.23; Calcium 9.5 mg/dL (8.4-10.2); Chloride 101.1 mmol/L (98-107); Potassium 5.3 mmol/L (3.6-5.0)
--- NOTE | 2016-11-24 22:04 | Cat Scan Report ---
FINAL REPORT EXAM: CT ABDOMEN PELVIS WO CON HISTORY: hematuria w/ flank pain, hx of kidney stones TECHNIQUE: Helical CT scan through the abdomen and pelvis without contrast. Images are reconstructed in the sagittal and coronal planes. PRIORS: 09/07/2016 FINDINGS: Solid organ and bowel evaluation is limited without intravenous contrast. Bowel evaluation is limited without oral contrast. The lung bases are clear. There is diffuse low-attenuation of the liver consistent with fatty infiltration. Otherwise, the liver appears normal. There are surgical clips in the gallbladder fossa. The pancreas, spleen and adrenal glands appear normal. There are 4 stones in the right kidney with the largest measuring 7 mm. There is no hydronephrosis or ureterolithiasis on the right. There are two stones in the upper pole of the left kidney with the larger measuring 2 mm. There is no hydronephrosis or ureterolithiasis on the left. The uterus and ovaries are absent. There is a small sliding hiatal hernia. Otherwise, the stomach appears grossly within normal limits. There are no abnormally dilated loops of bowel or acute inflammatory changes. The appendix is not discretely visualized but there are no inflammatory changes in the right lower quadrant around the area of the cecum. There is a relatively large amount of stool throughout the colon. The abdominal aorta has a normal diameter. There are bilateral pars defects at L5 without spondylolisthesis. The lower thoracic and lumbar vertebrae are normal in height. There is been a right inguinal herniorrhaphy. There is a small umbilical hernia containing normal appearing fat. IMPRESSION: 1. Bilateral nephrolithiasis. No evidence of hydronephrosis or ureterolithiasis 2. Diffuse fatty infiltration of the liver 3. Question constipation 4. Small umbilical hernia containing normal appearing fat
[2016-11-24] MEDS ORDERED: NACL 0.9% 1000 ML 1,000 ML IV ONE (22:21)
[2016-11-24] MEDS ORDERED: ZOFRAN IV ONE (22:22)
[2016-11-24 23:41] LABS: Bacteria,Urine 2+ /HPF (Negative); Bilirubin,Urine NEG (Negative); Blood,Urine SM (Negative); Ketones,Urine NEG (Negative); Leukocyte Esterase,Urine MOD (Negative); Mucus,Urine FEW /HPF; Nitrite,Urine NEG (Negative); Protein,Urine <15 mg/dL mg/dL (Negative); Urobilinogen,Urine < 2.0 mg/dL (<2.0)
[2016-11-25] MEDS ORDERED: ROCEPHIN/NS 1 GM/50 ML 1 GM/50 ML BAG IV ONE (00:21)
[2016-11-25] MEDS ORDERED: NACL 0.9% 1000 ML 1,000 ML IV ONE (00:21)
[2016-11-25] MEDS ORDERED: MORPHINE IV ONE (00:21)
--- NOTE | 2016-11-25 00:22 | Emergency Department Report ---
ED General Adult HPI - General Chief complaint: Abdominal Pain Stated complaint: POSS KIDNEY STONES Time Seen by Provider: 11/25/16 00:15 Source: patient, RN notes reviewed, old records reviewed Mode of arrival: Ambulatory Limitations: No Limitations - History of Present Illness Initial comments: This is a 56-year-old female. I have evaluated her in the past. She does not currently have a local primary care doctor. Past medical history includes hypertension, kidney stones, mild renal insufficiency. Patient presents to the ER with a complaint of dysuria, frequency, hematuria and flank pain. Reports this feels like a "kidney stone." The pain is sharp. It increases with palpation. It decreases with rest. The pain radiates down to the right mid flank. -: Gradual, hour(s) Location: back Radiation: flank Quality: aching Consistency: constant Improves with: rest Worsens with: medication Associated Symptoms: loss of appetite, malaise, weakness. denies: confusion, chest pain, cough, diaphoresis, fever/chills - Related Data Previous Rx's Medication Instructions Recorded Last Taken Type HYDROcodone/APAP 5-325 [[place] 1 each PO Q6HR PRN #10 tablet 07/09/16 Unknown Rx 5/325] Nitrofurantoin [place]/M-Cryst 100 mg PO Q12HR #7 capsule 07/09/16 Unknown Rx [Macrobid CAP] HYDROcodone/APAP 5-325 [[place] 1 each PO Q6HR PRN #12 tablet 09/07/16 Unknown Rx 5/325] Ibuprofen [Motrin] 800 mg PO Q8HR PRN #40 tablet 09/07/16 Unknown Rx Allergies Allergy/AdvReac Type Severity Reaction Status Date / Time acetaminophen Allergy Rash Verified 08/01/16 18:43 [From Darvocet-N 100] ciprofloxacin [From Cipro] Allergy Rash Verified 08/01/16 18:43 hydromorphone HCl Allergy Rash Verified 08/01/16 18:43 [From Dilaudid] ketorolac tromethamine Allergy Rash Verified 08/01/16 18:43 [From Toradol] nalbuphine HCl [From Nubain] Allergy Rash Verified 08/01/16 18:43 propoxyphene napsylate Allergy Rash Verified 08/01/16 18:43 [From Darvocet-N 100] tramadol HCl [From Ultram] Allergy Rash Verified 08/01/16 18:43 ED Review of Systems ROS: Stated complaint: POSS KIDNEY STONES Other details as noted in HPI Constitutional: malaise. denies: fever Eyes: denies: vision change ENT: denies: epistaxis Respiratory: denies: cough Cardiovascular: denies: chest pain Gastrointestinal: abdominal pain Genitourinary: urgency, dysuria, frequency, hematuria Musculoskeletal: back pain Skin: denies: lesions Neurological: weakness Psychiatric: anxiety ED Past Medical Hx - Past Medical History Previous Medical History?: Yes Hx Hypertension: Yes Hx CVA: No Hx Heart Attack/AMI: No Hx Congestive Heart Failure: No Hx Diabetes: No Hx Deep Vein Thrombosis: No Hx Pulmonary Embolism: No Hx GERD: No Hx Liver Disease: No Hx Renal Disease: No Hx Sickle Cell Disease: No Hx Arthritis: No Hx Headaches / Migraines: No Hx Seizures: No Hx Kidney Stones: Yes Hx Psychiatric Treatment: No Hx Asthma: No Hx COPD: No Hx Tuberculosis: No Hx Dementia: No Hx HIV: No Additional medical history: chronic back pain - Surgical History Past Surgical History?: Yes Hx Coronary Stent: No Hx Open Heart Surgery: No Hx Pacemaker: No Hx Internal Defibrillator: No Hx Cholecystectomy: Yes Hx Appendectomy: Yes Hx Breast Surgery: No Additional Surgical History: hysterectomy, hernia repair. LITHOTRIPSY - Social History Smoking Status: Current Every Day Smoker Substance Use Type: None - Medications Home Medications: Home Medications Medication Instructions Recorded Confirmed Last Taken Type HYDROcodone/APAP 5-325 [[place] 1 each PO Q6HR PRN #10 tablet 07/09/16 Unknown Rx 5/325] Nitrofurantoin [place]/M-Cryst 100 mg PO Q12HR #7 capsule 07/09/16 Unknown Rx [Macrobid CAP] HYDROcodone/APAP 5-325 [[place] 1 each PO Q6HR PRN #12 tablet 09/07/16 Unknown Rx 5/325] Ibuprofen [Motrin] 800 mg PO Q8HR PRN #40 tablet 09/07/16 Unknown Rx ED Physical Exam - General Limitations: No Limitations General appearance: alert, in no apparent distress - Head Head exam: Present: atraumatic, normocephalic - Eye Eye exam: Present: normal appearance, EOMI. Absent: nystagmus - ENT ENT exam: Present: normal exam, normal orophraynx, mucous membranes moist, normal external ear exam - Neck Neck exam: Present: normal inspection, full ROM. Absent: tenderness, meningismus - Respiratory Respiratory exam: Present: normal lung sounds bilaterally. Absent: respiratory distress, wheezes, rales, rhonchi, stridor, accessory muscle use - Cardiovascular Cardiovascular Exam: Present: regular rate, normal rhythm, normal heart sounds. Absent: bradycardia, tachycardia, irregular rhythm, systolic murmur, diastolic murmur, rubs, gallop - GI/Abdominal GI/Abdominal exam: Present: soft, normal bowel sounds. Absent: distended, tenderness, guarding, rebound, rigid, pulsatile mass - Extremities Exam Extremities exam: Present: normal inspection, full ROM, normal capillary refill. Absent: tenderness, pedal edema, joint swelling, calf tenderness - Back Exam Back exam: Present: normal inspection, CVA tenderness (R) - Neurological Exam Neurological exam: Present: alert, oriented X3, normal gait, other (Extraocular movements intact. Tongue midline. No facial droop. Facial sensation intact to light touch in the V1, V2, V3 distribution bilaterally. 5 and 5 strength in 4 extremities.. Sensation is intact to light touch in 4 extremities.). Absent : motor sensory deficit - Psychiatric Psychiatric exam: Present: anxious - Skin Skin exam: Present: warm, dry, intact, normal color. Absent: rash ED Course Vital Signs 11/24/16 11/24/16 11/24/16 18: 22:22 22:30 Temperature 97.7 F Pulse Rate 98 H 76 78 Respiratory 22 10 L 14 Rate Blood Pressure 100/55 185/103 Blood Pressure [Right] O2 Sat by Pulse 98 97 100 Oximetry 11/24/16 11/24/16 11/24/16 22:39 22:40 22:50 Temperature Pulse Rate 69 70 69 Respiratory 18 16 13 Rate Blood Pressure 169/92 143/79 Blood Pressure 169/92 [Right] O2 Sat by Pulse 100 99 98 Oximetry 11/24/16 23:00 Temperature Pulse Rate 75 Respiratory 13 Rate Blood Pressure 158/86 Blood Pressure [Right] O2 Sat by Pulse 99 Oximetry ED Medical Decision Making - Lab Data Result diagrams: 11/24/16 21:00 11/24/16 21:00 Vital Signs 11/24/16 11/24/16 11/24/16 18:17 22:22 22:30 Temperature 97.7 F Pulse Rate 98 H 76 78 Respiratory 22 10 L 14 Rate Blood Pressure 100/55 185/103 Blood Pressure [Right] O2 Sat by Pulse 98 97 100 Oximetry 11/24/16 11/24/16 11/24/16 22:39 22:40 22:50 Temperature Pulse Rate 69 70 69 Respiratory 18 16 13 Rate Blood Pressure 169/92 143/79 Blood Pressure 169/92 [Right] O2 Sat by Pulse 100 99 98 Oximetry 11/24/16 11/24/16 11/24/16 23:00 23:10 23:20 Temperature Pulse Rate 75 86 79 Respiratory 13 17 14 Rate Blood Pressure 158/86 158/86 158/86 Blood Pressure [Right] O2 Sat by Pulse 99 Oximetry 11/24/16 11/24/16 11/24/16 23:30 23:40 23:50 Temperature Pulse Rate 74 71 73 Respiratory 11 L 11 L 14 Rate Blood Pressure 158/86 171/115 187/112 Blood Pressure [Right] O2 Sat by Pulse Oximetry 11/25/16 11/25/16 00:00 00:10 Temperature Pulse Rate 70 71 Respiratory 12 11 L Rate Blood Pressure 158/86 152/103 Blood Pressure [Right] O2 Sat by Pulse Oximetry Labs 11/24/16 11/24/16 11/24/16 21:00 21:00 22:29 WBC 14.9 H RBC 4.62 Hgb 12.3 Hct 38.6 MCV 84 MCH 27 L MCHC 32 RDW 14.5 Plt Count 330 Lymph % (Auto) 23.6 [place] % (Auto) 5.1 Eos % (Auto) 1.1 Baso % (Auto) 0.7 Lymph # 3.5 [place] # 0.8 Eos # 0.2 Baso # 0.1 Seg Neutrophils % 69.5 Seg Neutrophils # 10.3 H VBG pH Sodium 142 Potassium 5.3 H Chloride 101.1 Carbon Dioxide 22 Anion Gap 24 BUN 32 H Creatinine 2.1 H Estimated GFR 24 BUN/Creatinine Ratio 15.23 Glucose 85 Lactic Acid 0.90 Calcium 9.5 Total Creatine Kinase 376 H Urine Color Urine Turbidity Urine pH Ur Specific Harris Urine Protein Urine Glucose (UA) Urine Ketones Urine Blood Urine Nitrite Urine Bilirubin Urine Urobilinogen Ur Leukocyte Esterase Urine WBC (Auto) Urine RBC (Auto) U Epithel Cells (Auto) Urine Bacteria (Auto) Urine Mucus 11/24/16 11/24/16 22:29 23:16 WBC RBC Hgb Hct MCV MCH MCHC RDW Plt Count Lymph % (Auto) Coke % (Auto) Eos % (Auto) Baso % (Auto) Lymph # [place] # Eos # Baso # Seg Neutrophils % Seg Neutrophils # VBG pH 7.306 L Sodium Potassium Chloride Carbon Dioxide Anion Gap BUN Creatinine Estimated GFR BUN/Creatinine Ratio Glucose Lactic Acid Calcium Total Creatine Kinase Urine Color Straw Urine Turbidity Clear Urine pH 5.0 Ur Specific Harris 1.011 Urine Protein <15 mg/dl Urine Glucose (UA) Neg Urine Ketones Neg Urine Blood Sm Urine Nitrite Neg Urine Bilirubin Neg Urine Urobilinogen < 2.0 Ur Leukocyte Esterase Mod Urine WBC (Auto) 38.0 H Urine RBC (Auto) 5.0 U Epithel Cells (Auto) 1.0 Urine Bacteria (Auto) 2+ Urine Mucus Few - Radiology Data Radiology results: report reviewed, image reviewed Noncontrast CT scan of the abdomen and pelvis suggests constipation, no kidney stones noted within the collecting system. 4 stones noted within the right kidney, no hydronephrosis noted. 2 stones noted in the left kidney. - Medical Decision Making Differential diagnosis: Dehydration, vasomotor nephropathy, urinary tract infection, pyelonephritis Assessment and plan: 56-year-old female with flank pain, CVA tenderness, irritative urinary symptoms, acute onset renal insufficiency with mild hyperkalemia. Patient will be treated empirically with morphine, which she reports she can tolerate, IV fluids and ceftriaxone. Urine cultures are ordered. Given worsening renal insufficiency, mild hyperkalemia, clinical history consistent with pyelonephritis, patient will be admitted for further evaluation and management. The case is presented to the Hospital physician, Dr. Joya, she accepts the patient to her service. Critical care attestation.: If time is entered above; I have spent that time in minutes in the direct care of this critically ill patient, excluding procedure time. ED Disposition Clinical Impression: Renal insufficiency, Pyelonephritis, Acute kidney injury Disposition: OP ADMIT IP TO THIS HOSP Is pt being admited?: Yes Condition: Good Instructions: Abdominal Pain (ED) Referrals: PRIMARY CARE, [Primary Care Provider] - 3-5 Days
[2016-11-25] MEDS ORDERED: KIONEX PO ONE (00:32)
[2016-11-25] MEDS ORDERED: ZOFRAN IV PRN (02:02)
[2016-11-25] MEDS ORDERED: DULCOLAX PR PRN (02:02)
[2016-11-25] MEDS ORDERED: MILK OF MAGNESIA PO PRN (02:02)
--- NOTE | 2016-11-25 02:04 | History and Physical Report ---
History of Present Illness Date of examination: 11/25/16 History of present illness: 56-year-old woman with a history of hypertension comes emergency room with complaints of right flank pain that started last night. Also complaining of urinary frequency, no dysuria Review Of Systems: Constitutional: no fever, chills, weight loss Ears, eyes, nose, mouth and throat: no nasal congestion, no nasal discharge, no sinus pressure, blurry vision, diplopia Neck: No neck pain or rigidity. Cardiovascular: chest pain, orthopnea, palpitations Respiratory: No shortness of breath, cough Gastrointestinal: abdominal pain, hematochezia Genitourinary : no hematuria Musculoskeletal: no joint swelling or muscle ache Integumentary: no rash, no pruritis Neurological: no parathesias, focal weakness Endocrine: no cold or heat intolerance, no polyuria or polydipsia Hematologic/Lymphatic: no easy bruising, no easy bleeding, no gland swelling Allergic/Immunologic: no urticaria, no angioedema. PAST MEDICAL HISTORY:hypertension PAST SURGICAL HISTORY: cholecystectomy y, hernia repair, appendectomy FAMILY HISTORY: Hypertension SOCIAL HISTORY: Smoke a pack a day, no alcohol or drug Medications and Allergies Allergies Allergy/AdvReac Type Severity Reaction Status Date / Time acetaminophen Allergy Rash Verified 08/01/16 18:43 [From Darvocet-N 100] ciprofloxacin [From Cipro] Allergy Rash Verified 08/01/16 18:43 hydromorphone HCl Allergy Rash Verified 08/01/16 18:43 [From Dilaudid] ketorolac tromethamine Allergy Rash Verified 08/01/16 18:43 [From Toradol] nalbuphine HCl [From Nubain] Allergy Rash Verified 08/01/16 18:43 propoxyphene napsylate Allergy Rash Verified 08/01/16 18:43 [From Darvocet-N 100] tramadol HCl [From Ultram] Allergy Rash Verified 08/01/16 18:43 Home Medications Medication Instructions Recorded Confirmed Last Taken Type HYDROcodone/APAP 5-325 [[place] 1 each PO Q6HR PRN #10 tablet 07/09/16 Unknown Rx 5/325] Nitrofurantoin [place]/M-Cryst 100 mg PO Q12HR #7 capsule 07/09/16 Unknown Rx [Macrobid CAP] HYDROcodone/APAP 5-325 [[place] 1 each PO Q6HR PRN #12 tablet 09/07/16 Unknown Rx 5/325] Ibuprofen [Motrin] 800 mg PO Q8HR PRN #40 tablet 09/07/16 Unknown Rx Exam - Physical Exam Narrative exam: Gen. appearance: Patient lying in bed, no apparent distress HEENT: Normocephalic, atraumatic, pupils equally round and reactive to light, extraocular movement intact, and no sclericterus,. No JVD or thyromegaly or nodule,neck supple, no carotid bruit ,mucous membranes moist, no exudate or erythema Heart: S1, S2, regular rate and rhythm Lungs: Clear to auscultation bilaterally, breathing comfortable Abdomen: Positive bowel sounds, nontender, nondistended, no organomegaly Extremity: No edema, cyanosis, clubbing Skin: No rash, nodules, warm, dry Neuro: Oriented 3, cranial nerves II-12 intact, speech is fluent, motor and sensory intact - Constitutional Vitals: Temp Pulse Resp BP Pulse Ox 97.7 F 74 18 169/71 98 11/24/16 18:17 11/25/16 01:17 11/25/16 01:17 11/25/16 01:17 11/25/16 01:17 Results - Labs CBC & Chem 7: 11/24/16 21:00 11/24/16 21:00 Labs: Abnormal lab results 11/24/16 11/24/16 11/24/16 Range/Units 21:00 21:00 22:29 WBC 14.9 H (4.5-11.0) K/mm3 MCH 27 L (28-32) pg Seg Neutrophils # 10.3 H (1.8-7.7) K/mm3 VBG pH 7.306 L (7.320-7.420) Potassium 5.3 H (3.6-5.0) mmol/L BUN 32 H (7-17) mg/dL Creatinine 2.1 H (0.7-1.2) mg/dL Total Creatine Kinase 376 H (30-135) units/L Urine WBC (Auto) (0.0-6.0) /HPF 11/24/16 Range/Units 23:16 WBC (4.5-11.0) K/mm3 MCH (28-32) pg Seg Neutrophils # (1.8-7.7) K/mm3 VBG pH (7.320-7.420) Potassium (3.6-5.0) mmol/L BUN (7-17) mg/dL Creatinine (0.7-1.2) mg/dL Total Creatine Kinase (30-135) units/L Urine WBC (Auto) 38.0 H (0.0-6.0) /HPF - Imaging and Cardiology CT scan - abdomen: report reviewed CT scan - pelvis: report reviewed Assessment and Plan Assessment Acute renal failure Hyperkalemia Pyelonephritis Hypertension Plan Admits medicine Start IV fluids, monitor potassium, start IV Rocephin Start DVT prophylaxis, continue appropriate outpatient medications
[2016-11-25] MEDS ORDERED: ROCEPHIN/NS 1 GM/50 ML 1 GM/50 ML BAG IV SCH (03:00)
[2016-11-25] MEDS ORDERED: NACL 0.45% 1000 ML 1,000 ML IV SCH (03:00)
[2016-11-25] MEDS: MORPHINE IV PRN ×2 (03:54→08:06)
[2016-11-25 08:18] LABS: Basophils % (Auto) 0.7 % (0.0-1.8); Eosinophils % (Auto) 0.9 % (0.0-4.3); Hematocrit 37.1 % (30.3-42.9); Hemoglobin 12.2 gm/dl (10.1-14.3); Mean Corpuscular HGB Conc 33 % (30-34); Mean Corpuscular Hemoglobin 27 pg (28-32); Mean Corpuscular Volume 82 fl (79-97); Platelet Count 287 K/mm3 (140-440); Red Blood Count 4.55 M/mm3 (3.65-5.03); Red Cell Distribution Width 14.7 % (13.2-15.2); White Blood Count 11.9 K/mm3 (4.5-11.0)
[2016-11-25 08:52] VITALS: BP 132/86
[2016-11-25 09:03] LABS: Chloride TNR mmol/L (98-107); Potassium TNR mmol/L (3.6-5.0); Sodium TNR mmol/L (137-145)
[2016-11-25 09:04] LABS: Anion Gap TNR mmol/L; BUN/Creatinine Ratio TNR; Blood Urea Nitrogen TNR mg/dL (7-17); Calcium TNR mg/dL (8.4-10.2); Carbon Dioxide TNR mmol/L (22-30); Glucose TNR mg/dL (65-100)
--- NOTE | 2016-11-25 09:27 | Admit Criteria Form ---
Admission Criteria Documentation: UROLOGIC DISEASE G Clinical Indications for Admission to Inpatient Care (Place ' X' for any and all applicable criteria): Hospital admission is needed for appropriate care of the patient because of 1 or more of the following: [ ]I. New-onset Reduced urine output, or hydronephrosis remaining after emergency or observation level care (as appropriate ) []II. Renal disease needing inpatient care indicated by 1 or more of the following(2)(3)(4): [ ]a) Acute renal failure [ ]b) Significant uremic complications [ ]c) Acute kidney injury (that does not qualify as Acute renal failure ) requiring inpatient care indicated by ALL of the following(5)(6)(7)(8) (9): [ ]i) Worsening clinical status (eg, rising creatinine) despite outpatient and observation care treatment (eg, hydration) [ ]ii) Acute kidney injury indicated by 1 or more of the following: [ ]1) 2-fold or more rise in serum creatinine from baseline [ ]2) Reduction of more than 50% in estimated glomerular filtration rate from baseline [ ]3) Urine output less than 0.5 mL/kg/hr for 12 hours despite adequate volume status [ ]d) Systemic cause (eg, Goodpasture syndrome ) needing inpatient care [ ]e) Rapidly progressive renal disease needing inpatient care (eg, plasmapheresis, immunosuppression ) Anasarca needing inpatient care [ ]f) Hemoptysis [ ]g) Hemolysis, thrombosis, or infraction [ ]h) Anasarca needing inpatient care [ ]III. New-onset or uncontrolled nephrogenic diabetes insipidus [ ]IV. Urologic infection requiring inpatient care as indicated by 1 or more of the following(10)(11)(12): [ ]a) Hemodynamic instability [ ]b) Dehydration that is severe or persistent [ ]c) Failure of outpatient treatment [ ]d) Charles's gangrene [ ]e) Urinary obstruction [ ]f) Immunocompromised state (eg, chronic steroid use ) [ ]g) Known renal or urologic abnormalities(eg, indwelling catheter, structural abnormalities ) [ ]h) Recent urologic manipulation or procedure Urinary obstruction [ ]i) Abscess requiring drainage Immunocompromised state [ ]V. Acute urinary retention requiring inpatient management as indicated by ANY ONE of the following(1)(13): [ ]a) Retention cannot be alleviated via emergency or observation level care (eg, urinary catheter placement) [ ]b) Hemodynamic instability [ ]c) Acute neurologic etiology (eg, cauda equina) [ ]d) Dehydration or other complications not manageable with emergency or observation level care [ ]e) Acute kidney injury (that does not qualify as Acute renal failure ) requiring inpatient care indicated by ALL of the following(5)(6)(7)(8) (9): [ ]i) Acute kidney injury indicated by ANY ONE of the following: [ ]1) 2-fold or more rise in serum creatinine from baseline [ ]2) Reduction of more than 50% in estimated glomerular filtration rate from baseline [ ]ii) Worsening clinical status (eg, rising creatinine) despite outpatient and observation care treatment (eg, hydration) [ ]. Gross hematuria requiring inpatient management as indicated by ANY ONE of the following(1)(2): [ ]a) Evidence of renal obstruction [ ]b) Reduced urine output [ ]c) Clot retention after urinary catheterization and irrigation [ ]d) Severe Anemia [ ]e) Systemic cause needing inpatient treatment (eg, Goodpasture syndrome) [ ]VII. Priapism not responsive to emergency or observation care treatment [ ]VII. Scrotal, testicular, or epididymal disorder requiring inpatient care indicated by 1 or more of the following(1)(14)(15)(16): [ ]a) Scrotal edema or infection not manageable with emergency or observation level care [ ]b) Orchitis not manageable with emergency or observation level care [ ]c) Epididymitis not manageable with emergency or observation level of care [ ]d) Other scrotal, testicular, or epididymal disorder (eg, infection, inflammation) not manageable with emergency or observation level care [ ]IX. Complications of transplanted kidney indicated by 1 or more of the following [ ]a) Acute graft rejection requiring inpatient management (eg, intravenous immunosuppression) [ ]b) Acute kidney injury indicated by ALL of the following i) Acute kidney injury indicated by 1 or more of the following 1) 2-fold or more rise in serum creatinine from baseline 2) Reduction of more than 50% in estimated glomerular filtration rate from baseline 3) Urine output less than 0.5 mL/kg/hr for 12 hours despite adequate volume status ii) Kidney injury too severe or not responsive to outpatient and observation care treatment (eg, hydration) [ ]c) Infection requiring inpatient management (eg, Hemodynamic instability, need for intravenous antimicrobial treatment) [ ]d) Other complication of transplanted kidney requiring patient management (eg, severe diarrhea leading to malabsorption) [ ]X. Trauma to renal, genital, or urologic system requiring inpatient medical care [X ]XI. Urologic Disease condition, symptom, or finding for which emergency and observation care have failed or are not considered appropriate. The original [employer] content created by [employer] has been revised. The portions of the content which have been revised are identified through the use of italic text or in bold, and [facility] has neither reviewed nor approved the modified material. All other unmodified content is copyright [facility]. Please see references footnoted in the original [facility] edition 2016 Admission Criteria Met: Yes
[2016-11-25] MEDS ORDERED: APRESOLINE IV PRN (10:00)
--- NOTE | 2016-11-25 11:38 | Event Note ---
Date: 11/25/16 Patient discharged with a reviewed, labs and imaging were noted. Patient was admitted for nephrolithiasis (small multiple stones), and pyelonephritis. patient is on IV antibiotics and IV fluids. Patient was sleeping by the time I went to the room, not in pain or distress.
[2016-11-25] MEDS: LOVENOX SUB-Q SCH ×2 (12:07→12:08)
[2016-11-25 12:14] LABS: Calcium 8.5 mg/dL (8.4-10.2); Chloride 104.2 mmol/L (98-107); Potassium 4.8 mmol/L (3.6-5.0)
--- NOTE | 2016-11-26 16:51 | Discharge Summary ---
Providers - Providers Date of Admission: 11/25/16 02:02 Date of discharge: 11/25/16 Attending physician: DEUCE ROMO MD Primary care physician: JARAD EWING MD Hospitalization Reason for admission: pyelonephritis, LATANYA Condition: Good Pertinent studies: CT abdomen and pelvis: shows small stones in the right and left kidney Hospital course: 56-year-old woman with a history of hypertension comes emergency room with complaints of right flank pain that started last night. Also complaining of urinary frequency, no dysuria. Patient was admitted to the floor and she was started managed for acute pyelonephritis and LATANYA with IV fluids and IV antibiotics. When I saw her in the morning she has mild and his right lower back. I'll consult her about the risk of no getting treatment and she understood and left against AMA. He was admitted previously for similar problems and left AMA at that time too. Have advised her to call her PCP. Disposition: DC-07 LEFT AGAINST MED ADVICE Core Measure Documentation - Palliative Care Palliative Care/ Comfort Measures: Not Applicable - Core Measures Any of the following diagnoses?: none Exam - Physical Exam Narrative exam: Not in cardiopulmonary distress. The patient is obese. Vital signs as documented. Head exam is unremarkable. No scleral icterus . Neck is without jugular venous distension, thyromegaly, or carotid bruits. Lungs are clear to auscultation. Cardiac exam reveals regular rate and Rhythm. First and second heart sounds normal. No murmurs, rubs or gallops. Abdominal exam reveals normal bowel sounds, no masses, no organomegaly and no aortic enlargement. Extremities are nonedematous and both femoral and pedal pulses are normal. BACK right CVA tenderness. EXECUTIVE RECEPTIONIST: Alert and oriented 3. No focal weakness. - Constitutional Vitals: Temp Pulse Resp BP Pulse Ox 98.4 F 63 20 132/86 98 11/25/16 07:15 11/25/16 07:15 11/25/16 07:15 11/25/16 07:15 11/25/16 10:34 Plan Activity: other (left AMA) Follow up with: JARAD EWING MD [Primary Care Provider] - 3-5 Days
--- NOTE | 2016-12-01 09:25 | Query-Infection ---
Dear Date:___12/01/16 Pants Closer/CDS:____Maryellen / Jakob Phone#:___[phone] Exercise your independent professional judgment when responding to this query. Questions asked do not imply a particular answer is desired or expected. We greatly appreciate your clarification on this issue. Clinical Documentation States: 56 year old female was admitted on 11/25/16. The discharge summary (Dr. Cuadra) states " 56-year-old woman with a history of hypertension comes emergency room with complaints of right flank pain that started last night Hospitalization Reason for admission: pyelonephritis, LATANYA Patient was admitted to the floor and she was started managed for acute pyelonephritis and LATANYA with IV fluids and IV antibiotics " WBC: 14.9 Pulse rate: 98 Medications: IV ceftriaxone Clinical findings show: (please check applicable parameters) Infection, known /suspected, with some of the following indicators; Specify the infection: 3 General parameters [ ] Fever (core temp >38.30C or 100.40F) [ ] Hypothermia (core temp <36C) [ ] Heart rate >90 bpm [ ] Tachypnea: >20 bpm or pCO2 < 32 mmHg [ ] Altered mental status [ ] Significant edema / +ve fluid balance (>20 ml/kg 24 h) [ ] Hyperglycemia (Bl. glucose >110 mg/dl) w/o diabetes Inflammatory parameters [ ] Leukocytosis (white blood cell count >12,000/l) [ ] Leukopenia (white blood cell count <4,000/l) [ ] Bandemia (immature WBC > 10%) [ ] Leucocyte Left Shift [ ] Plasma procalcitonin>2 SD above the normal value Hemodynamic and tissue perfusion parameters [ ] Arterial hypotension(SBP <90 mmHg, MAP <70 mmHg,or a SBP drop >40 mmHg in adults) [ ] Hyperlactatemia (>3 mmol/l) [ ] Anion Gap (> 11mEG/l) [ ] Decreased capillary refill or mottling Organ dysfunction parameters [ ] Arterial hypoxemia (PaO2/FIO2 <300) [ ] Creatinine increase =0.5 mg/dl [ ] Acute oliguria (urine output <0.5 ml | kg |h or 45 mM/l for at least 2 hrs) [ ] Coagulation abnormalities (INR >1.5 or activated partial thromboplastin time >60 s) [ ] Ileus (absent glenny wel sounds) [ ] Thrombocytopenia (platelet count <100,000/l) [ ] Hyperbilirubinemia (plasma total bilirubin >4 mg/dl) According to the clinical indications above, can Bacteremia be further specified? If so, please indicate below and in your Progress Notes and/ or Discharge Summary. Indicate if the condition was present on admission. PHYSICIAN RESPONSE: [ x] Sepsis [ ] Severe Sepsis [ ] Septic Shock [ ] Septicemia [ ] Sepsis now resolved [ ] SIRS due to non-infectious cause with organ dysfunction [ ] SIRS due to non-infectious cause without organ dysfunction [ ] Other: [ ] Comment/Explanation: Present on Admission: [x ] Yes (Y) [ ] Clinically undeterminable (W) [ ] No (N) [ ] Ruled Out Please also document response in your Progress Notes and/or Discharge Summary and indicate if the condition was present on admission Notes: SIRS/ SIRS WITH ORGAN DYSFUNCTION Systemic inflammatory response syndrome (SIRS) generally refers to the systemic response to trauma/alegre or other insult such as Acute Myocardial Infarction, Acute Pancreatitis, and Major Surgery with symptoms including fever, tachycardia , tachypnea, and leukocytosis (1). BACTEREMIA Presence of viable bacteria in the circulating blood (2). This term is reserved for patients that do not manifest above SIRS response. SEPTICEMIA Generally refers to a systemic disease associated with the presence of pathological microorganisms or toxins in the blood, which can include bacteria, viruses, fungi or other organisms (1). SEPSIS Generally refers to SIRS due infection (1). SEVERE SEPSIS Generally refers to sepsis associated with acute organ dysfunction (1). SEPTIC SHOCK Generally refers to circulatory failure associated with severe sepsis (2), and defined as hypotension or hypoperfusion despite adequate fluid resuscitation (1 hour) (3). REFERENCES: 1. [place] [employer]/Society of Critical Care Medicine Consensus Conference. Definitions for sepsis and organ failure and guidelines for the use of innovative therapies in sepsis. Critical Care Med 1992;20:864 - 74. 2. Bran ramos MM, [place] GONZALEZ, [place] JUANITA, Davy E, Eddie D, Valentino D, [place] J, [place] SM , Kurt JL, [place] G; International Sepsis Definitions Conference. 2001 SCCM/ESICM/ACCP/ATS/SIS International Sepsis Definitions Conference. Intensive Care Med. 2002;29(4):530-8. Epub 2002Jul 06. Review. PubMed PMID:[id number] 3. ICD-9-CM Official Guidelines for Coding and Reporting 4. Medscape Drugs, Diseases and Procedures references 5. [employer] Textbook of Internal Medicine. 18th Edition MTDD
--- NOTE | 2016-12-01 09:29 | Query- Renal Failure ---
Deadhruv Mulligan____Khalif Date:____12/01/16 [employer]/CDS:____Hollysa / Jakob Phone#:__[phone] Exercise your independent professional judgment when responding to query. Questions asked do not imply a particular answer is desired or expected. We greatly appreciate your clarification on this issue. Clinical Documentation States: 56 year old female was admitted on 11/25/16 The discharge summary (Dr. Cuadra) states " 56-year-old woman with a history of hypertension comes emergency room with complaints of right flank pain that started last night. Hospitalization Reason for admission: pyelonephritis, LATANYA " Clinical Findings Show: 11/24/16 11/25/16 Creatinine: 2.1 1.5 Please clarify if you mean: Acute Renal Failure with or due to: [ ] Tubular Necrosis [ ] Medullary Necrosis [ x] Vasomotor Nephropathy [ ] Shock Kidney [ ] Tubular Nephrosis [ ] Renal Tubular Stasis [ ] Cortical Necrosis [ ] Acute Renal Failure (unspecified) [ ] Lower Tubular Nephrosis [ ] Other: [ ] Not Applicable Present on Admission: [x ] Yes (Y) [ ] Clinically undeterminable (W) [ ] No (N) Please also document response in your Progress Notes and/or Discharge Summary and indicate if the condition was present on admission. KALYND
== END 2016-11-25 12:15 | disposition left against medical advice (07) | DRG 871 ==
LOC: ED 18:05 → 3A 11-25 02:02
PROVIDERS: ADMIT Internal Medicine; ATTEND Internal Medicine
DX: A41.9 Sepsis, unspecified organism (principal); N17.0 Acute kidney failure with tubular necrosis; N10 Acute pyelonephritis; E87.5 Hyperkalemia; I10 Essential (primary) hypertension; N20.0 Calculus of kidney; G89.29 Other chronic pain; M54.9 Dorsalgia, unspecified; F17.210 Nicotine dependence, cigarettes, uncomplicated; Z90.710 Acquired absence of both cervix and uterus; Z90.49 Acquired absence of other specified parts of digestive tract; Z82.49 Family history of ischemic heart disease and other diseases of the circulatory system
CPT/HCPCS: 36415; 74176; 80048; 81001; 82140; 82550; 82805; 85025; 87086; 96361; 96365; 96366; 96375; 99285; J0696; J1650; J2270; J2405; J7030

== ENCOUNTER 2017-05-28 19:02 | Emergency (ER) | payer MEDICAID ==
[2017-05-28] MEDS ORDERED: ZOFRAN IV ONE (20:27)
[2017-05-28] MEDS ORDERED: NACL 0.9% 1000 ML 1,000 ML IV ONE (20:27)
[2017-05-28] MEDS ORDERED: MORPHINE IV ONE (20:27)
--- NOTE | 2017-05-28 20:27 | Emergency Department Report ---
Blank Doc - Documentation Documentation: He is a 56-year-old female who is presenting with left flank pain for the past 24 hours. Patient's had some nausea and hematuria. Patient will have a CT rule out stones that are obstructing as well as UA and blood work.
[2017-05-28 20:52] LABS: Hematocrit 40.2 % (30.3-42.9); Hemoglobin 12.6 gm/dl (10.1-14.3); Mean Corpuscular HGB Conc 31 % (30-34); Mean Corpuscular Volume 82 fl (79-97); Platelet Count 310 K/mm3 (140-440); Red Blood Count 4.92 M/mm3 (3.65-5.03); Red Cell Distribution Width 16.3 % (13.2-15.2)
[2017-05-28 21:00] LABS: Mean Corpuscular Hemoglobin 26 pg (28-32)
[2017-05-28 21:08] LABS: Calcium 8.9 mg/dL (8.4-10.2)
[2017-05-28 21:29] LABS: Basophils % (Manual) 0 % (0.0-1.8); Eosinophils % (Manual) 0 % (0.0-4.3); Total Cells Counted 100
[2017-05-28 21:30] LABS: Anisocytosis Few; Large Platelets Rare
--- NOTE | 2017-05-28 21:59 | Cat Scan Report ---
FINAL REPORT EXAM: CT ABDOMEN PELVIS WO CON HISTORY: L flank pain COMPARISON: None available. TECHNIQUE: Contiguous axial images were obtained. Additional sagittal and coronal reformatted images were obtained. FINDINGS: Within the distal left ureter just proximal to the UVJ there is a 3 x 2 millimeter calculus causing mild left-sided hydroureteronephrosis and perinephric fat stranding. There additional nonobstructive bilateral renal calculi. No hydronephrosis on the right. Urinary bladder is unremarkable. Mild atrophy of the right kidney compared to the left. Mild linear atelectasis at the lung bases. Heart upper limits of normal in size. Liver, spleen, pancreas are grossly unremarkable. Mild nodular thickening of adrenal glands. Gallbladder surgically absent. Aorta and IVC normal in caliber. Large and small bowel loops normal in caliber. The appendix is not visualized may be surgically absent or extremely small in size. Prior right inguinal hernia repair. No evidence of recurrent hernia. Mild degenerative changes of the lumbar spine. Bilateral pars defects at the L5 level with minimal anterolisthesis of L5 on S1. Bony pelvis is grossly intact. IMPRESSION: 3 x 3 x 2 millimeter calculus in the distal left ureter causing mild left-sided hydroureteronephrosis and perinephric fat stranding. There additional nonobstructive bilateral renal calculi. No hydronephrosis on the right.
[2017-05-28 22:35] LABS: Bacteria,Urine 4+ /HPF (Negative); Bilirubin,Urine NEG (Negative); Blood,Urine MOD (Negative); Color,Urine Yellow (Yellow); Mucus,Urine FEW /HPF; Nitrite,Urine NEG (Negative); Urobilinogen,Urine < 2.0 mg/dL (<2.0)
--- NOTE | 2017-05-29 00:13 | Emergency Department Report ---
ED Abdominal Pain HPI - General Chief Complaint: Urogenital-Female Stated Complaint: POSS. KIDNEY STONE Time Seen by Provider: 05/28/17 20:14 Source: patient Mode of arrival: Ambulatory Limitations: No Limitations - History of Present Illness Initial Comments: This is a 56 y.o female that presents with left flank pain, nausea, and hematuria for 1 day. Patient states pain started out of no where. Pain is sharp and intermittent. She is taking NSAID's with no improvement of pain and drinking sprite for nausea. History of kidney stones and lithrotripsy. Denies abdominal pain, fever, and vomiting. MD Complaint: flank pain (left) -: days(s) (1) Location: L flank Radiation: none Severity: severe Severity scale (0 -10): 10 Quality: aching, sharp Consistency: intermittent Improves With: medication Worsens With: nothing Associated Symptoms: nausea, hematuria. denies: vomiting, diarrhea, fever, chills, constipation, dysuria, hematemesis, hematochezia, melena, anorexia, syncope Treatments Prior to Arrival: NSAIDs - Related Data Previous Rx's Medication Instructions Recorded Last Taken Type HYDROcodone/APAP 5-325 [[place] 1 each PO Q6HR PRN #10 tablet 07/09/16 Unknown Rx 5/325] Nitrofurantoin Wood/M-Cryst 100 mg PO Q12HR #7 capsule 07/09/16 Unknown Rx [Macrobid CAP] HYDROcodone/APAP 5-325 [[place] 1 each PO Q6HR PRN #12 tablet 09/07/16 Unknown Rx 5/325] Ibuprofen [Motrin] 800 mg PO Q8HR PRN #40 tablet 09/07/16 Unknown Rx Amoxicillin/Potassium Clav 1 each PO BID 14 Days #28 tablet 05/29/17 Unknown Rx [Augmentin 875-125 Tablet] Ibuprofen 800 mg PO Q6H PRN #30 tablet 05/29/17 Unknown Rx Allergies Allergy/AdvReac Type Severity Reaction Status Date / Time acetaminophen Allergy Rash Verified 08/01/16 18:43 [From Darvocet-N 100] ciprofloxacin [From Cipro] Allergy Rash Verified 08/01/16 18:43 hydromorphone HCl Allergy Rash Verified 08/01/16 18:43 [From Dilaudid] ketorolac tromethamine Allergy Rash Verified 08/01/16 18:43 [From Toradol] nalbuphine HCl [From Nubain] Allergy Rash Verified 08/01/16 18:43 propoxyphene napsylate Allergy Rash Verified 08/01/16 18:43 [From Darvocet-N 100] tramadol HCl [From Ultram] Allergy Rash Verified 08/01/16 18:43 ED Review of Systems ROS: Stated complaint: POSS. KIDNEY STONE Other details as noted in HPI Constitutional: denies: chills, fever Respiratory: denies: cough, shortness of breath, wheezing Cardiovascular: denies: chest pain, palpitations Gastrointestinal: denies: abdominal pain, nausea, diarrhea Musculoskeletal: back pain (left flank). denies: joint swelling, arthralgia Neurological: denies: headache, weakness, paresthesias ED Past Medical Hx - Past Medical History Hx Hypertension: Yes Hx CVA: No Hx Heart Attack/AMI: No Hx Congestive Heart Failure: No Hx Diabetes: No Hx Deep Vein Thrombosis: No Hx Pulmonary Embolism: No Hx GERD: No Hx Liver Disease: No Hx Renal Disease: No Hx Sickle Cell Disease: No Hx Arthritis: No Hx Headaches / Migraines: No Hx Seizures: No Hx Kidney Stones: Yes Hx Psychiatric Treatment: No Hx Asthma: No Hx COPD: No Hx Tuberculosis: No Hx Dementia: No Hx HIV: No Additional medical history: chronic back pain - Surgical History Hx Coronary Stent: No Hx Open Heart Surgery: No Hx Pacemaker: No Hx Internal Defibrillator: No Hx Cholecystectomy: Yes Hx Appendectomy: Yes Hx Breast Surgery: No Additional Surgical History: hysterectomy, hernia repair. LITHOTRIPSY - Social History Smoking Status: Current Every Day Smoker Substance Use Type: None - Medications Home Medications: Home Medications Medication Instructions Recorded Confirmed Last Taken Type HYDROcodone/APAP 5-325 [[place] 1 each PO Q6HR PRN #10 tablet 07/09/16 Unknown Rx 5/325] Nitrofurantoin Wood/M-Cryst 100 mg PO Q12HR #7 capsule 07/09/16 Unknown Rx [Macrobid CAP] HYDROcodone/APAP 5-325 [[place] 1 each PO Q6HR PRN #12 tablet 09/07/16 Unknown Rx 5/325] Ibuprofen [Motrin] 800 mg PO Q8HR PRN #40 tablet 09/07/16 Unknown Rx Amoxicillin/Potassium Clav 1 each PO BID 14 Days #28 tablet 05/29/17 Unknown Rx [Augmentin 875-125 Tablet] Ibuprofen 800 mg PO Q6H PRN #30 tablet 05/29/17 Unknown Rx ED Physical Exam - General Limitations: No Limitations - Respiratory Respiratory exam: Present: normal lung sounds bilaterally. Absent: respiratory distress - Cardiovascular Cardiovascular Exam: Present: regular rate, normal rhythm. Absent: systolic murmur, diastolic murmur, rubs, gallop - GI/Abdominal GI/Abdominal exam: Present: soft, normal bowel sounds - Back Exam Back exam: Present: full ROM, CVA tenderness (R), CVA tenderness (L). Absent: muscle spasm, rash noted - Neurological Exam Neurological exam: Present: alert - Skin Skin exam: Present: warm, dry, intact, normal color. Absent: rash ED Course Vital Signs 05/28/17 19:38 Temperature 98.3 F Pulse Rate 98 H Respiratory 20 Rate Blood Pressure 174/80 O2 Sat by Pulse 98 Oximetry ED Medical Decision Making - Lab Data Result diagrams: 05/28/17 20:35 05/28/17 20:35 - Radiology Data Radiology results: report reviewed CT abdomen pelvis w/o con IMPRESSION: 3 x 3 x 2 millimeter calculus in the distal left ureter causing mild left-sided hydroureteronephrosis and perinephric fat stranding. There additional nonobstructive bilateral renal calculi. No hydronephrosis on the right. - Medical Decision Making This is a 56 y.o. female that presents with left flank pain and hematuria for 1 day. History of kidney stones and lithrotripsy. Patient is stable and was examined by me. Given CT of abdomen pelvis obtained and dictated by radiologist , 3 x 3 x 2 mm calculus in the distal left ureter. BMP, CBC, & UA obtained. Patient notified of results. Signs of distress noted. Given morphine 4 mg IV once, zofran 4 mg IV once, normal saline 1L bolus once in ER, norco 7.5 mg po once, and rocephin 250 mg IM once. Patient request to be discharged home to pass stones. Follow up with urology. Start augmentin 100 mg po bid x 14 days and ibuprofen 800 mg po q6h #20. Discharged home in stable condition. Critical care attestation.: If time is entered above; I have spent that time in minutes in the direct care of this critically ill patient, excluding procedure time. ED Disposition Clinical Impression: Kidney stone on left side, Pyelonephritis Disposition: DC- TO HOME OR SELFCARE Is pt being admited?: No Does the pt Need Aspirin: No Condition: Stable Instructions: Kidney Stones (ED), How to Strain Your Urine (ED) Additional Instructions: Increase fluid intake to grater than 2.5 L per day to promote passing stones. Strain urine. Limit high sugar or fat content. Increase vegetables and fiber intake. Follow up with Urology. Prescriptions: Amoxicillin/Potassium Clav [Augmentin 875-125 Tablet] 1 each PO BID 14 Days #28 tablet Ibuprofen 800 mg PO Q6H PRN #30 tablet PRN Reason: Pain Referrals: AMOS RIVERA MD [Staff Physician] - 3-5 Days [facility] [Outside] - 3-[address] [facility] [Outside] - 3-5 Days Time of Disposition: 00:45 Print Language: MACEDONIAN
[2017-05-29 00:22] VITALS: BP 127/82
[2017-05-29] MEDS ORDERED: ROCEPHIN IM ONE (00:39)
[2017-05-29] MEDS ORDERED: NORCO 7.5/325 PO ONE (00:39)
[2017-05-29] MEDS ORDERED: XYLOCAINE 1% MPF 5 mL INFILTRATI ONE (00:39)
== END 2017-05-29 01:00 | disposition home or self-care (01) ==
LOC: ED 19:02
DX: N12 Tubulo-interstitial nephritis, not specified as acute or chronic (principal); I10 Essential (primary) hypertension; F17.200 Nicotine dependence, unspecified, uncomplicated; Z88.6 Allergy status to analgesic agent; Z88.8 Allergy status to other drugs, medicaments and biological substances
CPT/HCPCS: 36415; 74176; 80048; 81001; 85007; 85025; 96361; 96372; 96374; 96375; 99284; J0696; J2270; J2405; J7030

== ENCOUNTER 2017-10-24 05:56 | Emergency (ER) | payer MEDICAID ==
[2017-10-24 06:03] VITALS: BP 155/78
--- NOTE | 2017-10-24 06:53 | XRay Report ---
FINAL REPORT EXAM: XR KNEE 3V LT HISTORY: Left knee injury TECHNIQUE: Three views of the left knee were submitted. FINDINGS: There is osteopenia. There is mild narrowing of all 3 compartments of the knee with chondrocalcinosis. There is patellar spurring superiorly. There is no evidence of fracture or joint effusion. IMPRESSION: Osteopenia with mild arthritic changes. Patellar spurring. No evidence of fracture
[2017-10-24] MEDS ORDERED: NORCO 5/325 PO ONE (07:44)
--- NOTE | 2017-10-24 07:50 | Emergency Department Report ---
ED Lower Extremity HPI - General Chief Complaint: Extremity Injury, Lower Stated Complaint: LEFT KNEE PAIN Time Seen by Provider: 10/24/17 07:40 Source: patient Mode of arrival: Ambulatory Limitations: No Limitations - History of Present Illness Initial Comments: This is a 57-year-old female that presents with left knee pain from unknown cause. Patient has a history of hypertension, chronic back pain, and kidney stones. Patient reports playing with his little sister 2 days ago and the filling pain to left knee. She is not sure if she twisted knee while playing. She has not taken anything for symptom control. She is propping left leg up on pillows didn't be to decrease swelling. Patient reports pain is 10 out of 10 on pain scale and worse with movement. States she is unable to walk for long periods of time and have to use a cane. She denies numbness or tingling, recent fall or injury, erythema, deformity, fever, warmth to the area , and chest pain. MD Complaint: knee injury (left knee) Onset/Timin -: days(s) Injury: Knee: Left Type of Injury: unknown Place: home Severity: severe Severity scale (0 -10): 10 Improves With: immobilization Worsens With: weight bearing, movement, palpation Associated Symptoms: swelling, able to partially bear weight, ambulatory. denies: snap/pop sensation, numbness, tingling, unable to bear weight - Related Data Previous Rx's Medication Instructions Recorded Last Taken Type HYDROcodone/APAP 5-325 [[place] 1 each PO Q6HR PRN #10 tablet 07/09/16 Unknown Rx 5/325] Nitrofurantoin [place]/M-Cryst 100 mg PO Q12HR #7 capsule 07/09/16 Unknown Rx [Macrobid CAP] HYDROcodone/APAP 5-325 [[place] 1 each PO Q6HR PRN #12 tablet 09/07/16 Unknown Rx 5/325] Ibuprofen [Motrin] 800 mg PO Q8HR PRN #40 tablet 09/07/16 Unknown Rx Amoxicillin/Potassium Clav 1 each PO BID 14 Days #28 tablet 05/29/17 Unknown Rx [Augmentin 875-125 Tablet] Ibuprofen 800 mg PO Q6H PRN #30 tablet 05/29/17 Unknown Rx Diclofenac Sodium [Voltaren] 100 gm TP QID #1 gel..gram. 10/24/17 Unknown Rx Allergies Allergy/AdvReac Type Severity Reaction Status Date / Time acetaminophen Allergy Rash Verified 08/01/16 18:43 [From Darvocet-N 100] ciprofloxacin [From Cipro] Allergy Rash Verified 08/01/16 18:43 hydromorphone HCl Allergy Rash Verified 08/01/16 18:43 [From Dilaudid] ketorolac tromethamine Allergy Rash Verified 08/01/16 18:43 [From Toradol] nalbuphine HCl [From Nubain] Allergy Rash Verified 08/01/16 18:43 propoxyphene napsylate Allergy Rash Verified 08/01/16 18:43 [From Darvocet-N 100] tramadol HCl [From Ultram] Allergy Rash Verified 08/01/16 18:43 ED Review of Systems ROS: Stated complaint: LEFT KNEE PAIN Other details as noted in HPI Constitutional: denies: chills, fever Respiratory: denies: cough, shortness of breath, wheezing Cardiovascular: denies: chest pain, palpitations Gastrointestinal: denies: abdominal pain, nausea, diarrhea Musculoskeletal: arthralgia (left knee pain). denies: back pain, joint swelling Skin: denies: rash, lesions Neurological: denies: headache, weakness, paresthesias Psychiatric: denies: anxiety, depression ED Past Medical Hx - Past Medical History Hx Hypertension: Yes Hx CVA: No Hx Heart Attack/AMI: No Hx Congestive Heart Failure: No Hx Diabetes: No Hx Deep Vein Thrombosis: No Hx Pulmonary Embolism: No Hx GERD: No Hx Liver Disease: No Hx Renal Disease: No Hx Sickle Cell Disease: No Hx Arthritis: No Hx Headaches / Migraines: No Hx Seizures: No Hx Kidney Stones: Yes Hx Psychiatric Treatment: No Hx Asthma: No Hx COPD: No Hx Tuberculosis: No Hx Dementia: No Hx HIV: No Additional medical history: chronic back pain, - Surgical History Hx Coronary Stent: No Hx Open Heart Surgery: No Hx Pacemaker: No Hx Internal Defibrillator: No Hx Cholecystectomy: Yes Hx Appendectomy: Yes Hx Breast Surgery: No Additional Surgical History: hysterectomy, hernia repair. LITHOTRIPSY - Social History Smoking Status: Current Every Day Smoker Substance Use Type: None - Medications Home Medications: Home Medications Medication Instructions Recorded Confirmed Last Taken Type HYDROcodone/APAP 5-325 [[place] 1 each PO Q6HR PRN #10 tablet 07/09/16 Unknown Rx 5/325] Nitrofurantoin [place]/M-Cryst 100 mg PO Q12HR #7 capsule 07/09/16 Unknown Rx [Macrobid CAP] HYDROcodone/APAP 5-325 [[place] 1 each PO Q6HR PRN #12 tablet 09/07/16 Unknown Rx 5/325] Ibuprofen [Motrin] 800 mg PO Q8HR PRN #40 tablet 09/07/16 Unknown Rx Amoxicillin/Potassium Clav 1 each PO BID 14 Days #28 tablet 05/29/17 Unknown Rx [Augmentin 875-125 Tablet] Ibuprofen 800 mg PO Q6H PRN #30 tablet 05/29/17 Unknown Rx Diclofenac Sodium [Voltaren] 100 gm TP QID #1 gel..gram. 10/24/17 Unknown Rx ED Physical Exam - General Limitations: No Limitations General appearance: alert, in no apparent distress - Respiratory Respiratory exam: Present: normal lung sounds bilaterally. Absent: respiratory distress - Cardiovascular Cardiovascular Exam: Present: regular rate, normal rhythm. Absent: systolic murmur, diastolic murmur, rubs, gallop - GI/Abdominal GI/Abdominal exam: Present: soft, normal bowel sounds. Absent: organomegaly, mass - Extremities Exam Extremities exam: Present: normal capillary refill. Absent: pedal edema, joint swelling, calf tenderness - Expanded Lower Extremity Exam Left Hip exam: Present: normal inspection, full ROM Upper Leg exam: Present: normal inspection, full ROM Knee exam: Present: tenderness, pain w/ pronation/supination, pain/laxity with valgus, pain/laxity with varus, full knee extension. Absent: full ROM (patient unable to tolerate range of motion passive or active on exam), swelling, abrasion, laceration, ecchymosis, deformity, crepidus, erythema, effusion, posterior draw sign Lower Leg exam: Present: normal inspection Ankle exam: Present: normal inspection, full ROM Foot/Toe exam: Present: normal inspection, full ROM Neuro vascular tendon exam: Present: no vascular compromise Gait: Positive: observed and limited by pain - Neurological Exam Neurological exam: Present: alert, oriented X3 - Psychiatric Psychiatric exam: Present: normal affect, normal mood - Skin Skin exam: Present: warm, dry, intact, normal color. Absent: rash ED Course Vital Signs 10/24/17 05:55 Temperature 98.4 F Pulse Rate 85 Respiratory 18 Rate Blood Pressure 155/78 O2 Sat by Pulse 96 Oximetry ED Lower Extremity MDM - Radiology Data Radiology results: report reviewed, image reviewed EXAM: XR KNEE 3V LT HISTORY: Left knee injury TECHNIQUE: Three views of the left knee were submitted. FINDINGS: There is osteopenia. There is mild narrowing of all 3 compartments of the knee with chondrocalcinosis. There is patellar spurring superiorly. There is no evidence of fracture or joint effusion. IMPRESSION: Osteopenia with mild arthritic changes. Patellar spurring. No evidence of fracture - Medical Decision Making This is a 57y.o. female presents with left knee pain of unknown cause for 2 days. History of hypertension, chronic back pain, and kidney stone. Patient was examined by me. Patient is nontoxic appearing and stable. Vitals are normal. Patient given [place] 5/325 mg by mouth once while in ER. Obtained x- ray of the left knee and dictated by radiologist. Osteopenia with mild arthritic changes. Patellar spurring. No evidence of fracture. Start diclofenac gel for osteoarthritic pain. Plan discussed with patient to discharge home and treat outpatient. Referrals to Dr. Swain orthopedic surgeon. Patient discharged home in stable condition. Follow up with PCP in 2- 3 days. Critical care attestation.: If time is entered above; I have spent that time in minutes in the direct care of this critically ill patient, excluding procedure time. ED Disposition Clinical Impression: Left medial knee pain Osteoarthritis of left knee Qualifiers: Osteoarthritis type: primary Qualified Code(s): M17.12 - Unilateral primary osteoarthritis, left knee Disposition: TO HOME OR SELFCARE Is pt being admited?: No Does the pt Need Aspirin: No Condition: Stable Instructions: Osteoarthritis (ED), Self-Care Measures with a Chronic Disease ( ED) Additional Instructions: Rest Use ice or heat on affected area for 20 minutes and off for 2 hours. Take pain medication as needed for pain. Follow up with Primary Care Provider in 2-3 days. Follow-up with orthopedic surgery. Prescriptions: Diclofenac Sodium [Voltaren] 100 gm TP QID #1 gel..gram. Referrals: GALLITO SWAIN MD [Staff Physician] - 3-5 Days RAFY ARTEAGA MD [Staff Physician] - 3-5 Days Forms: Work/School Release Form(ED) Time of Disposition: 08:01 Print Language: WOLOF
== END 2017-10-24 08:16 | disposition home or self-care (01) ==
LOC: ED 05:56
DX: M17.12 Unilateral primary osteoarthritis, left knee (principal); I10 Essential (primary) hypertension; M54.9 Dorsalgia, unspecified; G89.29 Other chronic pain; F17.200 Nicotine dependence, unspecified, uncomplicated; Z87.442 Personal history of urinary calculi; Z88.8 Allergy status to other drugs, medicaments and biological substances; Z90.710 Acquired absence of both cervix and uterus; Z90.49 Acquired absence of other specified parts of digestive tract
CPT/HCPCS: 99283

== ENCOUNTER 2018-07-30 10:27 | Emergency (ER) | payer MEDICAID ==
[2018-07-30 10:38] VITALS: BP 165/109
[2018-07-30 11:27] LABS: Hematocrit 39.4 % (30.3-42.9); Hemoglobin 12.8 gm/dl (10.1-14.3); Mean Corpuscular HGB Conc 33 % (30-34); Mean Corpuscular Volume 83 fl (79-97); Platelet Count 309 K/mm3 (140-440); Red Blood Count 4.73 M/mm3 (3.65-5.03); Red Cell Distribution Width 15.7 % (13.2-15.2)
[2018-07-30 11:46] LABS: Bilirubin,Urine NEG (Negative); Color,Urine Straw (Yellow)
[2018-07-30 11:47] LABS: Bacteria,Urine 2+ /HPF (Negative); Blood,Urine SM (Negative); Mucus,Urine FEW /HPF; Protein,Urine <15 mg/dL mg/dL (Negative); Urobilinogen,Urine < 2.0 mg/dL (<2.0)
[2018-07-30 11:53] LABS: Alanine Aminotransferase 15 units/L (7-56); Albumin 4.6 g/dL (3.9-5); BUN/Creatinine Ratio 20; Blood Urea Nitrogen 28 mg/dL (7-17); Calcium 9.3 mg/dL (8.4-10.2); Hemolysis Index 10
[2018-07-30] MEDS ORDERED: MORPHINE IV ONE ×2 (11:53→14:36)
[2018-07-30] MEDS ORDERED: ZOFRAN IV ONE (11:53)
[2018-07-30 11:55] LABS: Bilirubin,Direct < 0.2 mg/dL (0-0.2)
--- NOTE | 2018-07-30 11:57 | Emergency Department Report ---
ED Abdominal Pain HPI - General Chief Complaint: Urogenital-Female Stated Complaint: POSS KIDNEY STONES/PAIN Time Seen by Provider: 07/30/18 11:10 Source: patient Mode of arrival: Ambulatory Limitations: No Limitations - History of Present Illness Initial Comments: Patient is a 57-year-old female with history of kidney stones. Patient presented to the ER complaining of right flank pain since last night. Patient stated that pain is sharp. Patient denied any fever or chills. MD Complaint: abdominal pain, flank pain -: Last night Location: R flank Radiation: none Migration to: no migration Severity scale (0 -10): 8 Quality: sharp Consistency: intermittent Worsens With: nothing - Related Data Previous Rx's Medication Instructions Recorded Last Taken Type Nitrofurantoin [place]/M-Cryst 100 mg PO Q12HR #7 capsule 07/09/16 Unknown Rx [Macrobid CAP] HYDROcodone/APAP 5-325 [[place] 1 each PO Q6HR PRN #12 tablet 09/07/16 Unknown Rx 5/325] Ibuprofen [Motrin] 800 mg PO Q8HR PRN #40 tablet 09/07/16 Unknown Rx Amoxicillin/Potassium Clav 1 each PO BID 14 Days #28 tablet 05/29/17 Unknown Rx [Augmentin 875-125 Tablet] Ibuprofen 800 mg PO Q6H PRN #30 tablet 05/29/17 Unknown Rx Diclofenac Sodium [Voltaren] 100 gm TP QID #1 gel..gram. 10/24/17 Unknown Rx HYDROcodone/APAP 5-325 [[place] 1 each PO Q6HR PRN #15 tablet 06/30/18 Unknown Rx 5-325 mg TAB] Metoclopramide [Reglan] 10 mg PO QID PRN #30 tablet 06/30/18 Unknown Rx levoFLOXacin [Levaquin TAB] 500 mg PO QDAY #10 tablet 06/30/18 Unknown Rx Allergies Allergy/AdvReac Type Severity Reaction Status Date / Time acetaminophen Allergy Rash Verified 07/30/18 10:33 [From Darvocet-N 100] ciprofloxacin [From Cipro] Allergy Rash Verified 07/30/18 10:33 hydromorphone HCl Allergy Rash Verified 07/30/18 10:33 [From Dilaudid] ketorolac tromethamine Allergy Rash Verified 07/30/18 10:33 [From Toradol] nalbuphine HCl [From Nubain] Allergy Rash Verified 07/30/18 10:33 propoxyphene napsylate Allergy Rash Verified 07/30/18 10:33 [From Darvocet-N 100] tramadol HCl [From Ultram] Allergy Rash Verified 07/30/18 10:33 ED Review of Systems ROS: Stated complaint: POSS KIDNEY STONES/PAIN Other details as noted in HPI Comment: All other systems reviewed and negative Constitutional: denies: chills, fever Respiratory: denies: cough, shortness of breath, SOB with exertion Cardiovascular: denies: chest pain, palpitations Gastrointestinal: abdominal pain, nausea. denies: vomiting, diarrhea, constipation, hematemesis, melena, hematochezia Genitourinary: urgency, frequency. denies: dysuria, hematuria, discharge Musculoskeletal: back pain Neurological: denies: headache, weakness, numbness, paresthesias, confusion, abnormal gait ED Past Medical Hx - Past Medical History Hx Hypertension: Yes Hx CVA: No Hx Heart Attack/AMI: No Hx Congestive Heart Failure: No Hx Diabetes: No Hx Deep Vein Thrombosis: No Hx Pulmonary Embolism: No Hx GERD: No Hx Liver Disease: No Hx Renal Disease: No Hx Sickle Cell Disease: No Hx Arthritis: No Hx Headaches / Migraines: No Hx Seizures: No Hx Kidney Stones: Yes Hx Psychiatric Treatment: No Hx Asthma: No Hx COPD: No Hx Tuberculosis: No Hx Dementia: No Hx HIV: No Additional medical history: chronic back pain, - Surgical History Hx Coronary Stent: No Hx Open Heart Surgery: No Hx Pacemaker: No Hx Internal Defibrillator: No Hx Cholecystectomy: Yes Hx Appendectomy: Yes Hx Breast Surgery: No Additional Surgical History: hysterectomy, hernia repair. LITHOTRIPSY - Social History Smoking Status: Current Every Day Smoker - Medications Home Medications: Home Medications Medication Instructions Recorded Confirmed Last Taken Type Nitrofurantoin [place]/M-Cryst 100 mg PO Q12HR #7 capsule 07/09/16 Unknown Rx [Macrobid CAP] HYDROcodone/APAP 5-325 [[place] 1 each PO Q6HR PRN #12 tablet 09/07/16 Unknown Rx 5/325] Ibuprofen [Motrin] 800 mg PO Q8HR PRN #40 tablet 09/07/16 Unknown Rx Amoxicillin/Potassium Clav 1 each PO BID 14 Days #28 tablet 05/29/17 Unknown Rx [Augmentin 875-125 Tablet] Ibuprofen 800 mg PO Q6H PRN #30 tablet 05/29/17 Unknown Rx Diclofenac Sodium [Voltaren] 100 gm TP QID #1 gel..gram. 10/24/17 Unknown Rx HYDROcodone/APAP 5-325 [[place] 1 each PO Q6HR PRN #15 tablet 06/30/18 Unknown Rx 5-325 mg TAB] Metoclopramide [Reglan] 10 mg PO QID PRN #30 tablet 06/30/18 Unknown Rx levoFLOXacin [Levaquin TAB] 500 mg PO QDAY #10 tablet 06/30/18 Unknown Rx ED Physical Exam - General Limitations: No Limitations General appearance: alert, in no apparent distress - Head Head exam: Present: atraumatic, normocephalic, normal inspection - Eye Eye exam: Present: normal appearance - ENT ENT exam: Present: normal exam, normal orophraynx, mucous membranes moist - Neck Neck exam: Present: normal inspection, full ROM. Absent: tenderness, meningismus, lymphadenopathy, thyromegaly - Respiratory Respiratory exam: Present: normal lung sounds bilaterally. Absent: respiratory distress, wheezes, rales, rhonchi, stridor, chest wall tenderness, accessory muscle use, decreased breath sounds, prolonged expiratory - Cardiovascular Cardiovascular Exam: Present: regular rate, normal rhythm, normal heart sounds - GI/Abdominal GI/Abdominal exam: Present: soft, normal bowel sounds. Absent: distended, tenderness, guarding, rebound, rigid, organomegaly, mass, bruit, pulsatile mass, hernia - Extremities Exam Extremities exam: Present: normal inspection, full ROM, normal capillary refill. Absent: pedal edema, calf tenderness - Back Exam Back exam: Present: normal inspection, full ROM, CVA tenderness (R). Absent: tenderness, CVA tenderness (L), muscle spasm, paraspinal tenderness, vertebral tenderness - Neurological Exam Neurological exam: Present: alert, oriented X3, CN II-XII intact, normal gait, reflexes normal - Skin Skin exam: Present: warm, intact ED Course Vital Signs 07/30/18 10:34 Temperature 98.0 F Pulse Rate 96 H Respiratory 18 Rate Blood Pressure 165/109 O2 Sat by Pulse 99 Oximetry ED Medical Decision Making - Lab Data Result diagrams: 07/30/18 10:54 07/30/18 11:20 - Radiology Data Radiology results: report reviewed CT abdomen and pelvis showed right nonobstructing renal calculi. - Medical Decision Making Patient is a 57-year-old female with history of kidney stones. Patient presented to the ER complaining of right flank pain since last night. Patient stated that pain is sharp. Patient denied any fever or chills. Patient received morphine and Zofran. Patient stated that She is feeling much better. CT abdomen and pelvis showed a nonobstructive renal calculi on the right side. Critical care attestation.: If time is entered above; I have spent that time in minutes in the direct care of this critically ill patient, excluding procedure time. ED Disposition Clinical Impression: Kidney stone on right side, UTI (urinary tract infection) Disposition: DC-01 TO HOME OR SELFCARE Is pt being admited?: No Condition: Stable Instructions: Kidney Stones (ED), Urinary Tract Infection in Women (ED) Referrals: PRIMARY CARE, [Primary Care Provider] - 3-5 Days
--- NOTE | 2018-07-30 14:18 | Cat Scan Report ---
PROCEDURE: CT ABDOMEN PELVIS W CON TECHNIQUE: Computerized axial tomography of the abdomen and pelvis was performed after the IV inject ion of iodinated nonionic contrast. CT DOSE LENGTH PRODUCT: 2673.8 mGycm HISTORY: abdominal pain/right flank pain COMPARISONS: None . FINDINGS: Contrast-enhanced CT of the abdomen and pelvis was performed following the intravenous admi nistration of iodinated contrast. Comparison is made to prior examination of June 30, 2018. The heart is normal in size. The lung bases appear clear. There is wall thickening of the distal esop hagus consistent with esophagitis, somewhat worse in comparison to the prior exam. ABDOMEN: There is fatty infiltration of the liver without suspect focal hepatic lesion. The spleen is normal i n size at 10.6 cm. The adrenal glands are within normal limits. No focal pancreatic lesion is seen. There has been a cholecystectomy. There is a regions of bilateral renal cortical loss. There are right nonobstructing renal calculi the largest of which measures 0.7 cm. No ureteral calculus or hydronephrosis is identified. There is no small or large bowel obstruction. There is a fat-containing umbilical hernia. Pelvis: The appendix is not seen. There is no evidence of appendicitis. There is no evidence of diverticuliti s. There has been a hysterectomy. The urinary bladder is within normal limits. There is no free air. There are bilateral pars defects at L5 without anterolisthesis. IMPRESSION: ABDOMEN: Right nonobstructing renal calculi. No ureteral calculus or hydronephrosis is identified Fatty infiltration of the liver Pelvis: Bilateral pars defects at L5 without anterolisthesis This document is electronically signed by Dangelo Conteh MD., July 30 2018 02:15:49 PM ET
== END 2018-07-30 14:50 | disposition home or self-care (01) ==
LOC: ED 10:27
DX: N20.0 Calculus of kidney (principal); N39.0 Urinary tract infection, site not specified; G89.29 Other chronic pain; I10 Essential (primary) hypertension; F17.200 Nicotine dependence, unspecified, uncomplicated; Z90.49 Acquired absence of other specified parts of digestive tract; Z90.89 Acquired absence of other organs; Z90.710 Acquired absence of both cervix and uterus; Z88.6 Allergy status to analgesic agent; Z88.1 Allergy status to other antibiotic agents; Z88.5 Allergy status to narcotic agent; Z88.8 Allergy status to other drugs, medicaments and biological substances
CPT/HCPCS: 36415; 74177; 80048; 80076; 81001; 85027; 96374; 96375; 96376; 99284; J2270; J2405; Q9967

== ENCOUNTER 2018-09-28 08:13 | Emergency (ER) | payer MEDICAID ==
[2018-09-28] MEDS ORDERED: NACL 0.9% 1000 ML 1,000 ML IV ONE (08:59)
--- NOTE | 2018-09-28 08:59 | Emergency Department Report ---
ED Abdominal Pain HPI - General Chief Complaint: Abdominal Pain Stated Complaint: STOMACH PAIN Time Seen by Provider: 09/28/18 08:50 Source: patient Mode of arrival: Ambulatory Limitations: No Limitations - History of Present Illness Initial Comments: Patient is a 58-year-old female that presents emergency room with right-sided flank pain. Patient states her pain is in 10 out of 10. Patient states her pain is worsening. Patient states she has a long history of kidney stones. Patient states she is able to take morphine but other derivatives cause her side effects or allergies. Patient states the pain is not radiating. Patient states the pain is better with rest. Patient states the pain is worse with urinating and movement. MD Complaint: abdominal pain, flank pain -: Sudden Location: R flank Radiation: none Migration to: no migration Severity: severe Severity scale (0 -10): 10 Quality: stabbing Consistency: constant Improves With: rest Worsens With: movement Associated Symptoms: denies: nausea, vomiting, diarrhea, fever, chills, const ipation, dysuria, hematemesis, hematochezia, melena, hematuria, anorexia, syncope - Related Data LMP (females 10-50): unknown Previous Rx's Medication Instructions Recorded Last Taken Type Nitrofurantoin [place]/M-Cryst 100 mg PO Q12HR #7 capsule 07/09/16 Unknown Rx [Macrobid CAP] HYDROcodone/APAP 5-325 [[place] 1 each PO Q6HR PRN #12 tablet 09/07/16 Unknown Rx 5/325] Ibuprofen [Motrin] 800 mg PO Q8HR PRN #40 tablet 09/07/16 Unknown Rx Amoxicillin/Potassium Clav 1 each PO BID 14 Days #28 tablet 05/29/17 Unknown Rx [Augmentin 875-125 Tablet] Ibuprofen 800 mg PO Q6H PRN #30 tablet 05/29/17 Unknown Rx Diclofenac Sodium [Voltaren] 100 gm TP QID #1 gel..gram. 10/24/17 Unknown Rx HYDROcodone/APAP 5-325 [[place] 1 each PO Q6HR PRN #15 tablet 06/30/18 Unknown Rx 5-325 mg TAB] Metoclopramide [Reglan] 10 mg PO QID PRN #30 tablet 06/30/18 Unknown Rx levoFLOXacin [Levaquin TAB] 500 mg PO QDAY #10 tablet 06/30/18 Unknown Rx HYDROcodone/ACETAMINOPHEN 1 each PO TID #10 tablet 07/30/18 Unknown Rx [Hydrocodone-Acetamin 7.5-300] Nitrofurantoin [place]/M-Cryst 100 mg PO Q12HR #14 capsule 07/30/18 Unknown Rx [Macrobid CAP] Ondansetron [Zofran Odt] 4 mg PO Q8HR PRN #14 tab.rapdis 07/30/18 Unknown Rx Sulfamethoxazole/Trimethoprim 1 each PO BID 10 Days #20 tablet 09/28/18 Unknown Rx [Bactrim DS TAB] Tamsulosin [Flomax] 0.4 mg PO QDAY #14 cap 09/28/18 Unknown Rx Allergies Allergy/AdvReac Type Severity Reaction Status Date / Time acetaminophen Allergy Rash Verified 09/28/18 08:16 [From Darvocet-N 100] ciprofloxacin [From Cipro] Allergy Rash Verified 09/28/18 08:16 hydromorphone HCl Allergy Rash Verified 09/28/18 08:16 [From Dilaudid] ketorolac tromethamine Allergy Rash Verified 09/28/18 08:16 [From Toradol] nalbuphine HCl [From Nubain] Allergy Rash Verified 09/28/18 08:16 propoxyphene napsylate Allergy Rash Verified 09/28/18 08:16 [From Darvocet-N 100] tramadol HCl [From Ultram] Allergy Rash Verified 09/28/18 08:16 ED Review of Systems ROS: Stated complaint: STOMACH PAIN Other details as noted in HPI Constitutional: denies: chills, fever Eyes: denies: eye pain, eye discharge, vision change ENT: denies: ear pain, throat pain Respiratory: denies: cough, shortness of breath, wheezing Cardiovascular: denies: chest pain, palpitations Endocrine: no symptoms reported Gastrointestinal: abdominal pain. denies: nausea, diarrhea Genitourinary: denies: urgency, dysuria, discharge Musculoskeletal: denies: back pain, joint swelling, arthralgia Skin: denies: rash, lesions Neurological: denies: headache, weakness, paresthesias Psychiatric: denies: anxiety, depression Hematological/Lymphatic: denies: easy bleeding, easy bruising ED Past Medical Hx - Past Medical History Previous Medical History?: Yes Hx Hypertension: Yes Hx CVA: No Hx Heart Attack/AMI: No Hx Congestive Heart Failure: No Hx Diabetes: No Hx Deep Vein Thrombosis: No Hx Pulmonary Embolism: No Hx GERD: No Hx Liver Disease: No Hx Renal Disease: Yes (ckd. ) Hx Sickle Cell Disease: No Hx Arthritis: No Hx Headaches / Migraines: No Hx Seizures: No Hx Kidney Stones: Yes Hx Psychiatric Treatment: No Hx Asthma: No Hx COPD: No Hx Tuberculosis: No Hx Dementia: No Hx HIV: No Additional medical history: chronic back pain, - Surgical History Past Surgical History?: Yes Hx Coronary Stent: No Hx Open Heart Surgery: No Hx Pacemaker: No Hx Internal Defibrillator: No Hx Cholecystectomy: Yes Hx Appendectomy: Yes Hx Breast Surgery: No Additional Surgical History: hysterectomy, hernia repair. LITHOTRIPSY - Family History Family history: no significant - Social History Smoking Status: Current Some Day Smoker Substance Use Type: None - Medications Home Medications: Home Medications Medication Instructions Recorded Confirmed Last Taken Type Nitrofurantoin [place]/M-Cryst 100 mg PO Q12HR #7 capsule 07/09/16 Unknown Rx [Macrobid CAP] HYDROcodone/APAP 5-325 [[place] 1 each PO Q6HR PRN #12 tablet 09/07/16 Unknown Rx 5/325] Ibuprofen [Motrin] 800 mg PO Q8HR PRN #40 tablet 09/07/16 Unknown Rx Amoxicillin/Potassium Clav 1 each PO BID 14 Days #28 tablet 05/29/17 Unknown Rx [Augmentin 875-125 Tablet] Ibuprofen 800 mg PO Q6H PRN #30 tablet 05/29/17 Unknown Rx Diclofenac Sodium [Voltaren] 100 gm TP QID #1 gel..gram. 10/24/17 Unknown Rx HYDROcodone/APAP 5-325 [[place] 1 each PO Q6HR PRN #15 tablet 06/30/18 Unknown Rx 5-325 mg TAB] Metoclopramide [Reglan] 10 mg PO QID PRN #30 tablet 06/30/18 Unknown Rx levoFLOXacin [Levaquin TAB] 500 mg PO QDAY #10 tablet 06/30/18 Unknown Rx HYDROcodone/ACETAMINOPHEN 1 each PO TID #10 tablet 07/30/18 Unknown Rx [Hydrocodone-Acetamin 7.5-300] Nitrofurantoin [place]/M-Cryst 100 mg PO Q12HR #14 capsule 07/30/18 Unknown Rx [Macrobid CAP] Ondansetron [Zofran Odt] 4 mg PO Q8HR PRN #14 tab.rapdis 07/30/18 Unknown Rx Sulfamethoxazole/Trimethoprim 1 each PO BID 10 Days #20 tablet 09/28/18 Unknown Rx [Bactrim DS TAB] Tamsulosin [Flomax] 0.4 mg PO QDAY #14 cap 09/28/18 Unknown Rx ED Physical Exam - General Limitations: No Limitations General appearance: alert, in no apparent distress - Head Head exam: Present: atraumatic, normocephalic - Eye Eye exam: Present: normal appearance - ENT ENT exam: Present: mucous membranes moist - Neck Neck exam: Present: normal inspection - Respiratory Respiratory exam: Present: normal lung sounds bilaterally. Absent: respiratory distress - Cardiovascular Cardiovascular Exam: Present: regular rate, normal rhythm. Absent: systolic murmur, diastolic murmur, rubs, gallop - GI/Abdominal GI/Abdominal exam: Present: soft, tenderness (right flank tenderness), normal bowel sounds - Extremities Exam Extremities exam: Present: normal inspection - Back Exam Back exam: Present: normal inspection - Neurological Exam Neurological exam: Present: alert, oriented X3 - Psychiatric Psychiatric exam: Present: normal affect, normal mood - Skin Skin exam: Present: warm, dry, intact, normal color. Absent: rash ED Course Vital Signs 09/28/18 09/28/18 09/28/18 08:30 10:02 11:10 Temperature 98.8 F Pulse Rate 79 61 Respiratory 20 15 15 Rate Blood Pressure 168/100 160/101 [Left] O2 Sat by Pulse 98 99 100 Oximetry - Reevaluation(s) Reevaluation #1: Patient states her pain is better. Discussed all results with patient. Patient is stable for discharge. Patient will be discharged home.. Patient agrees to plan of care.. Patient given discharge instructions. Patient voiced understanding of discharge instructions. 09/28/18 10:56 ED Medical Decision Making - Lab Data Result diagrams: 09/28/18 09:27 09/28/18 09:27 - Radiology Data Radiology results: report reviewed CT ABDOMEN PELVIS WITHOUT CONTRAST: HISTORY: Right flank pain. COMPARISON: 06/30/18. TECHNIQUE: Helical CT in 1.25mm intervals without IV contrast. Sagittal and coronal reconstructions. FINDINGS: Lung bases: Normal. Liver: Normal. Biliary system: Cholecystectomy. Pancreas: Normal. Spleen: Normal. Kidneys/ureters/bladder: The kidneys are normal size and position. There are 3 stones in the inferior right kidney measuring 7 mm, 7 mm and 1 mm. There are 2 stones in the superior left kidney measuring 1 mm and 2 mm. No ureteral stones or hydronephrosis. A few scattered small renal cysts are suspected. The bladder is unremarkable. Adrenal glands: Normal. Aorta: Normal. Intestines: Within normal limits given no oral contrast was administered. Appendix: Not identified, correlate with surgical history. Pelvic viscera: Hysterectomy is suspected. Ascites: None. Adenopathy: None. Musculoskeletal: Mild thoracolumbar spondylosis. Small umbilical hernia containing fat. IMPRESSION: No acute process. Bilateral nephrolithiasis as described. No hydronephrosis. - Medical Decision Making Patient is a 58-year-old female that presents emergency room with right flank pain. Patient found to have renal stones and a UTI. The patient's CT shows stones with no other acute findings. Patient is stable for discharge. Patient was discharged home. Patient's labs unremarkable except for elevated creatinine but that is the patient's baseline creatinine. Patient given IV antibiotics for her UTI in the ER. Due to patient's allergies and multiple sensitivities to medications patient will not be given pain medication and patient will need to follow up with urologist and her primary care for pain management. - Differential Diagnosis flank pain. Kidney stones. UTI. Critical care attestation.: If time is entered above; I have spent that time in minutes in the direct care of this critically ill patient, excluding procedure time. ED Disposition Clinical Impression: Kidney stone, Flank pain Chronic kidney disease Qualifiers: Chronic kidney disease stage: unspecified stage Qualified Code(s): N18.9 - Chronic kidney disease, unspecified UTI (urinary tract infection) Qualifiers: Urinary tract infection type: acute cystitis Hematuria presence: with hematuria Qualified Code(s): N30.01 - Acute cystitis with hematuria Disposition: TO HOME OR SELFCARE Is pt being admited?: No Does the pt Need Aspirin: No Condition: Stable Instructions: Kidney Stones (ED), Urinary Tract Infection in Women (ED), Renal Colic (ED), Dysuria (ED), Abdominal Pain (ED), Flank Pain (ED) Additional Instructions: Patient to follow-up with primary care in 2-3 days. Patient to follow-up with urologist in 2-3 days. Patient to return to ER if condition worsens. Patient to take meds as directed. Patient to increase water. Patient to rest. Patient to continue all meds. Prescriptions: Sulfamethoxazole/Trimethoprim [Bactrim DS TAB] 1 each PO BID 10 Days #20 tablet Tamsulosin [Flomax] 0.4 mg PO QDAY #14 cap Referrals: [facility] MD PRANAV [Primary Care Provider] - 2-3 Days CYNDEE BRAY MD [Staff Physician] - 2-3 Days Time of Disposition: 10:59
[2018-09-28 09:07] LABS: Bacteria,Urine 3+ /HPF (Negative); Bilirubin,Urine NEG (Negative); Blood,Urine SM (Negative); Color,Urine Yellow (Yellow); Mucus,Urine FEW /HPF; Protein,Urine <15 mg/dL mg/dL (Negative); Urobilinogen,Urine < 2.0 mg/dL (<2.0)
[2018-09-28] MEDS ORDERED: MORPHINE IV ONE ×2 (09:16→11:17)
[2018-09-28] MEDS ORDERED: MORPHINE ONE ×2 (09:17→11:18)
[2018-09-28] MEDS ORDERED: MAXIPIME/NS 2 GM/100 ML 2 GM/100 ML BAG IV ONE (09:19)
[2018-09-28 09:39] LABS: Basophils % (Auto) 0.5 % (0.0-1.8); Eosinophils # (Auto) 0.1 K/mm3 (0.0-0.4); Eosinophils % (Auto) 1.2 % (0.0-4.3); Hematocrit 36.6 % (30.3-42.9); Hemoglobin 11.9 gm/dl (10.1-14.3); Lymphocytes # (Auto) 1.7 K/mm3 (1.2-5.4); Lymphocytes % (Auto) 24.6 % (13.4-35.0); Mean Corpuscular HGB Conc 33 % (30-34); Mean Corpuscular Volume 83 fl (79-97); Monocytes # (Auto) 0.3 K/mm3 (0.0-0.8); Monocytes % (Auto) 4.6 % (0.0-7.3); Platelet Count 240 K/mm3 (140-440); Red Cell Distribution Width 15.5 % (13.2-15.2)
[2018-09-28 09:55] LABS: Alanine Aminotransferase 14 units/L (7-56); BUN/Creatinine Ratio 14; Blood Urea Nitrogen 20 mg/dL (7-17); Calcium 9.1 mg/dL (8.4-10.2); Hemolysis Index 33
[2018-09-28 10:16] LABS: Bilirubin,Direct < 0.2 mg/dL (0-0.2)
--- NOTE | 2018-09-28 10:48 | Cat Scan Report ---
CT ABDOMEN PELVIS WITHOUT CONTRAST: HISTORY: Right flank pain. COMPARISON: 06/30/18. TECHNIQUE: Helical CT in 1.25mm intervals without IV contrast. Sagittal and coronal reconstructions. FINDINGS: Lung bases: Normal. Liver: Normal. Biliary system: Cholecystectomy. Pancreas: Normal. Spleen: Normal. Kidneys/ureters/bladder: The kidneys are normal size and position. There are 3 stones in the inferior right kidney measuring 7 mm, 7 mm and 1 mm. There are 2 stones in the superior left kidney measuring 1 mm and 2 mm. No ureteral stones or hydronephrosis. A few scattered small renal cysts are suspected. The bladder is unremarkable. Adrenal glands: Normal. Aorta: Normal. Intestines: Within normal limits given no oral contrast was administered. Appendix: Not identified, correlate with surgical history. Pelvic viscera: Hysterectomy is suspected. Ascites: None. Adenopathy: None. Musculoskeletal: Mild thoracolumbar spondylosis. Small umbilical hernia containing fat. IMPRESSION: No acute process. Bilateral nephrolithiasis as described. No hydronephrosis.
[2018-09-28 11:10] VITALS: BP 160/101
== END 2018-09-28 11:47 | disposition home or self-care (01) ==
LOC: ED 08:13
DX: N20.0 Calculus of kidney (principal); N30.01 Acute cystitis with hematuria; I12.9 Hypertensive chronic kidney disease with stage 1 through stage 4 chronic kidney disease, or unspecified chronic kidney disease; N18.9 Chronic kidney disease, unspecified; F17.200 Nicotine dependence, unspecified, uncomplicated; Z90.49 Acquired absence of other specified parts of digestive tract; Z88.6 Allergy status to analgesic agent; Z88.1 Allergy status to other antibiotic agents; Z88.8 Allergy status to other drugs, medicaments and biological substances; Z79.899 Other long term (current) drug therapy
CPT/HCPCS: 36415; 74176; 80048; 80076; 81001; 85025; 87086; 96365; 96366; 96375; 96376; 99284; J0692; J2270; J7030

== ENCOUNTER 2019-02-20 09:02 | Emergency (ER) | payer MEDICAID ==
[2019-02-20] MEDS ORDERED: ONDANSETRON 4 MG/2 ML INJ IV ONE (09:40)
[2019-02-20] MEDS ORDERED: MORPHINE 4 MG/1 ML INJ IV ONE (09:40)
[2019-02-20] MEDS ORDERED: KETOROLAC 30 MG/1 ML INJ IV ONE (09:40)
[2019-02-20 10:11] LABS: Hematocrit 32.3 % (30.3-42.9); Hemoglobin 10.7 gm/dl (10.1-14.3); Mean Corpuscular HGB Conc 33 % (30-34); Mean Corpuscular Volume 92 fl (79-97); Red Blood Count 3.53 M/mm3 (3.65-5.03)
[2019-02-20 10:13] LABS: Platelet Count 94 K/mm3 (140-440)
[2019-02-20 10:22] LABS: Calcium 9.1 mg/dL (8.4-10.2)
[2019-02-20 10:28] LABS: Bacteria,Urine 4+ /HPF (Negative); Bilirubin,Urine NEG (Negative); Blood,Urine SM (Negative); Color,Urine Straw (Yellow); Protein,Urine <15 mg/dL mg/dL (Negative); Urobilinogen,Urine < 2.0 mg/dL (<2.0)
--- NOTE | 2019-02-20 11:21 | Cat Scan Report ---
CT ABDOMEN AND PELVIS WITHOUT CONTRAST HISTORY: Right flank pain. COMPARISON: 01/28/2019 TECHNIQUE: Routine abdominal and pelvic CT exam performed without contrast. Lack of intravenous cont rast limits evaluation of the vascular and solid organs.. All CT scans at this location are performed using CT dose reduction for ALARA by means of automated exposure control. FINDINGS: CT ABDOMEN: Lung Bases: No significant abnormality. Liver: No significant abnormality. Biliary: Status post cholecystectomy with normal bile ducts. Spleen: No significant abnormality. Unenlarged. Pancreas: Small and fatty replaced. Adrenals: No significant abnormality. Kidneys: The right kidney is smaller than the left. Nonobstructive 6.5 and 5.5 mm calculi in the lowe r pole the right kidney are unchanged compared to the last exam. A 1 mm right lower pole calculus and 2 1 mm left renal calculi are no longer identified. Bilateral renal cortical scarring. The renal col lecting systems and ureters are nondilated. No ureteral calculus. Lymphatics: No lymphadenopathy. Vasculature: No significant abnormality. Bowel/Peritoneum: Nonobstructive bowel pattern. Diverticulosis without mesocolonic fat stranding. No free air. No free fluid. Appendix not visualized. No pericecal inflammation. CT PELVIC: : No significant abnormality. Lymphatics: No lymphadenopathy. GI: Normal rectum and sigmoid colon. Osseous Structures: No aggressive appearing osseous lesions. Additional Findings: A small fat-containing umbilical hernia. IMPRESSION: 1. 2 nonobstructive right lower pole renal calculi and no obstructing calculi. No signs of pyelonephr itis or pyonephrosis. 2. Previously identified bilateral tiny renal calculi are not identified on this exam and presumably have passed. 3. Status post cholecystectomy. 4. Mild diverticulosis but no diverticulitis. 5. A small fat-containing umbilical hernia. Signer Name: Juan Linder MD Signed: 02/20/2019 11:16 AM Workstation Name: [id number]
--- NOTE | 2019-02-20 12:00 | Emergency Department Report ---
ED Abdominal Pain HPI - General Chief Complaint: Abdominal Pain Stated Complaint: POSS KIDNEY STONE PAIN Time Seen by Provider: 02/20/19 09:30 Source: patient Mode of arrival: Ambulatory Limitations: No Limitations - History of Present Illness Initial Comments: Patient is a 58-year-old female is presenting with right flank pain. Patient states that at 8 PM last night she started having severe pain in the right flank. Patient states there was a small amount of hematuria last night as well she's has nausea but no vomiting. States hematuria as well as improved however she is still having pain in the right flank. Patient has some dysuria and urinary frequency as well. Patient says chills but no documented fever. Patient has a remote history of kidney stones. Severity scale (0 -10): 8 - Related Data Previous Rx's Medication Instructions Recorded Last Taken Type Nitrofurantoin [place]/M-Cryst 100 mg PO Q12HR #7 capsule 07/09/16 Unknown Rx [Macrobid CAP] HYDROcodone/APAP 5-325 [Hector 1 each PO Q6HR PRN #12 tablet 09/07/16 Unknown Rx 5/325] Ibuprofen [Motrin] 800 mg PO Q8HR PRN #40 tablet 09/07/16 Unknown Rx Amoxicillin/Potassium Clav 1 each PO BID 14 Days #28 tablet 05/29/17 Unknown Rx [Augmentin 875-125 Tablet] Ibuprofen 800 mg PO Q6H PRN #30 tablet 05/29/17 Unknown Rx Diclofenac Sodium [Voltaren] 100 gm TP QID #1 gel..gram. 10/24/17 Unknown Rx HYDROcodone/APAP 5-325 [[place]ector 1 each PO Q6HR PRN #15 tablet 06/30/18 Unknown Rx 5-325 mg TAB] Metoclopramide [Reglan] 10 mg PO QID PRN #30 tablet 06/30/18 Unknown Rx levoFLOXacin [Levaquin TAB] 500 mg PO QDAY #10 tablet 06/30/18 Unknown Rx HYDROcodone/ACETAMINOPHEN 1 each PO TID #10 tablet 07/30/18 Unknown Rx [Hydrocodone-Acetamin 7.5-300] Nitrofurantoin [place]/M-Cryst 100 mg PO Q12HR #14 capsule 07/30/18 Unknown Rx [Macrobid CAP] Ondansetron [Zofran Odt] 4 mg PO Q8HR PRN #14 tab.rapdis 07/30/18 Unknown Rx Sulfamethoxazole/Trimethoprim 1 each PO BID 10 Days #20 tablet 09/28/18 Unknown Rx [Bactrim DS TAB] Tamsulosin [Flomax] 0.4 mg PO QDAY #14 cap 09/28/18 Unknown Rx HYDROcodone/APAP 5-325 [Hector 2 each PO Q6HR PRN #14 tablet 02/20/19 Unknown Rx 5/325] Ibuprofen [Motrin 600 MG tab] 600 mg PO Q8H PRN #20 tablet 02/20/19 Unknown Rx Nitrofurantoin [place]/M-Cryst 100 mg PO Q12HR #14 capsule 02/20/19 Unknown Rx [Macrobid CAP] Ondansetron [Zofran Odt] 4 mg PO Q8HR #10 tab.rapdis 02/20/19 Unknown Rx Allergies Allergy/AdvReac Type Severity Reaction Status Date / Time acetaminophen Allergy Rash Verified 02/20/19 09:56 [From Darvocet-N 100] ciprofloxacin [From Cipro] Allergy Rash Verified 02/20/19 09:56 hydromorphone HCl Allergy Rash Verified 02/20/19 09:56 [From Dilaudid] ketorolac tromethamine Allergy Rash Verified 02/20/19 09:56 [From Toradol] nalbuphine HCl [From Nubain] Allergy Rash Verified 02/20/19 09:56 propoxyphene napsylate Allergy Rash Verified 02/20/19 09:56 [From Darvocet-N 100] tramadol HCl [From Ultram] Allergy Rash Verified 02/20/19 09:56 ED Review of Systems ROS: Stated complaint: POSS KIDNEY STONE PAIN Other details as noted in HPI Comment: All other systems reviewed and negative ED Past Medical Hx - Past Medical History Hx Hypertension: Yes Hx CVA: No Hx Heart Attack/AMI: No Hx Congestive Heart Failure: No Hx Diabetes: No Hx Deep Vein Thrombosis: No Hx Pulmonary Embolism: No Hx GERD: No Hx Liver Disease: No Hx Renal Disease: Yes (ckd. ) Hx Sickle Cell Disease: No Hx Arthritis: No Hx Headaches / Migraines: No Hx Seizures: No Hx Kidney Stones: Yes Hx Psychiatric Treatment: No Hx Asthma: No Hx COPD: No Hx Tuberculosis: No Hx Dementia: No Hx HIV: No Additional medical history: chronic back pain, - Surgical History Past Surgical History?: Yes Hx Coronary Stent: No Hx Open Heart Surgery: No Hx Pacemaker: No Hx Internal Defibrillator: No Hx Cholecystectomy: Yes Hx Appendectomy: Yes Hx Breast Surgery: No Additional Surgical History: hysterectomy, hernia repair. LITHOTRIPSY - Social History Smoking Status: Current Some Day Smoker Substance Use Type: None - Medications Home Medications: Home Medications Medication Instructions Recorded Confirmed Last Taken Type Nitrofurantoin [place]/M-Cryst 100 mg PO Q12HR #7 capsule 07/09/16 Unknown Rx [Macrobid CAP] HYDROcodone/APAP 5-325 [[place]ector 1 each PO Q6HR PRN #12 tablet 09/07/16 Unknown Rx 5/325] Ibuprofen [Motrin] 800 mg PO Q8HR PRN #40 tablet 09/07/16 Unknown Rx Amoxicillin/Potassium Clav 1 each PO BID 14 Days #28 tablet 05/29/17 Unknown Rx [Augmentin 875-125 Tablet] Ibuprofen 800 mg PO Q6H PRN #30 tablet 05/29/17 Unknown Rx Diclofenac Sodium [Voltaren] 100 gm TP QID #1 gel..gram. 10/24/17 Unknown Rx HYDROcodone/APAP 5-325 [[place] 1 each PO Q6HR PRN #15 tablet 06/30/18 Unknown Rx 5-325 mg TAB] Metoclopramide [Reglan] 10 mg PO QID PRN #30 tablet 06/30/18 Unknown Rx levoFLOXacin [Levaquin TAB] 500 mg PO QDAY #10 tablet 06/30/18 Unknown Rx HYDROcodone/ACETAMINOPHEN 1 each PO TID #10 tablet 07/30/18 Unknown Rx [Hydrocodone-Acetamin 7.5-300] Nitrofurantoin [place]/M-Cryst 100 mg PO Q12HR #14 capsule 07/30/18 Unknown Rx [Macrobid CAP] Ondansetron [Zofran Odt] 4 mg PO Q8HR PRN #14 tab.rapdis 07/30/18 Unknown Rx Sulfamethoxazole/Trimethoprim 1 each PO BID 10 Days #20 tablet 09/28/18 Unknown Rx [Bactrim DS TAB] Tamsulosin [Flomax] 0.4 mg PO QDAY #14 cap 09/28/18 Unknown Rx HYDROcodone/APAP 5-325 [[place]ector 2 each PO Q6HR PRN #14 tablet 02/20/19 Unknown Rx 5/325] Ibuprofen [Motrin 600 MG tab] 600 mg PO Q8H PRN #20 tablet 02/20/19 Unknown Rx Nitrofurantoin [place]/M-Cryst 100 mg PO Q12HR #14 capsule 02/20/19 Unknown Rx [Macrobid CAP] Ondansetron [Zofran Odt] 4 mg PO Q8HR #10 tab.rapdis 02/20/19 Unknown Rx ED Physical Exam - General Limitations: No Limitations General appearance: alert, in no apparent distress - Head Head exam: Present: atraumatic, normocephalic - Eye Eye exam: Present: normal appearance - ENT ENT exam: Present: mucous membranes moist - Neck Neck exam: Present: normal inspection - Respiratory Respiratory exam: Present: normal lung sounds bilaterally. Absent: respiratory distress, wheezes, rales, rhonchi - Cardiovascular Cardiovascular Exam: Present: regular rate, normal rhythm. Absent: systolic murmur, diastolic murmur, rubs, gallop - GI/Abdominal GI/Abdominal exam: Present: soft, tenderness (pubic or right lower quadrant discomfort on palpation.), normal bowel sounds. Absent: distended, guarding, rebound, rigid - Extremities Exam Extremities exam: Present: normal inspection - Back Exam Back exam: Present: normal inspection - Neurological Exam Neurological exam: Present: alert, oriented X3 - Psychiatric Psychiatric exam: Present: normal affect, normal mood - Skin Skin exam: Present: warm, dry, intact, normal color. Absent: rash ED Course Vital Signs 02/20/19 02/20/19 02/20/19 09:11 09:57 11:24 Temperature 98.2 F 98.4 F 98.4 F Pulse Rate 87 84 70 Respiratory 18 16 16 Rate Blood Pressure 168/99 170/97 157/91 [Right] O2 Sat by Pulse 97 100 100 Oximetry ED Medical Decision Making - Lab Data Result diagrams: 02/20/19 09:50 02/20/19 09:50 Lab Results 02/20/19 02/20/19 02/20/19 Range/Units 09:38 09:50 09:50 WBC 5.8 (4.5-11.0) K/mm3 RBC 3.53 L (3.65-5.03) M/mm3 Hgb 10.7 (10.1-14.3) gm/dl Hct 32.3 (30.3-42.9) % MCV 92 (79-97) fl MCH 31 (28-32) pg MCHC 33 (30-34) % RDW 19.0 H (13.2-15.2) % Plt Count 94 L (140-440) K/mm3 Sodium 139 (137-145) mmol/L Potassium 4.3 (3.6-5.0) mmol/L Chloride 105.4 (98-107) mmol/L Carbon Dioxide 20 L (22-30) mmol/L Anion Gap 18 mmol/L BUN 20 H (7-17) mg/dL Creatinine 1.3 H (0.7-1.2) mg/dL Estimated GFR 42 ml/min BUN/Creatinine Ratio 15 % Glucose 132 H (65-100) mg/dL Calcium 9.1 (8.4-10.2) mg/dL Urine Color Straw (Yellow) Urine Turbidity Clear (Clear) Urine pH 6.0 (5.0-7.0) Ur Specific [place] 1.011 (1.003-1.030) Urine Protein <15 mg/dl (Negative) mg/dL Urine Glucose (UA) Neg (Negative) mg/dL Urine Ketones Neg (Negative) mg/dL Urine Blood Sm (Negative) Urine Nitrite Neg (Negative) Urine Bilirubin Neg (Negative) Urine Urobilinogen < 2.0 (<2.0) mg/dL Ur Leukocyte Esterase Sm (Negative) Urine WBC (Auto) 14.0 H (0.0-6.0) /HPF Urine RBC (Auto) 4.0 (0.0-6.0) /HPF U Epithel Cells (Auto) 1.0 (0-13.0) /HPF Urine Bacteria (Auto) 4+ (Negative) /HPF - Radiology Data CT ABDOMEN AND PELVIS WITHOUT CONTRAST HISTORY: Right flank pain. COMPARISON: 01/28/2019 TECHNIQUE: Routine abdominal and pelvic CT exam performed without contrast. Lack of intravenous contrast limits evaluation of the vascular and solid organs.. All CT scans at this location are performed using CT dose reduction for ALARA by means of automated exposure control. FINDINGS: CT ABDOMEN: Lung Bases: No significant abnormality. Liver: No significant abnormality. Biliary: Status post cholecystectomy with normal bile ducts. Spleen: No significant abnormality. Unenlarged. Pancreas: Small and fatty replaced. Adrenals: No significant abnormality. Kidneys: The right kidney is smaller than the left. Nonobstructive 6.5 and 5.5 mm calculi in the lower pole the right kidney are unchanged compared to the last exam. A 1 mm right lower pole calculus and 2 1 mm left renal calculi are no longer identified. Bilateral renal cortical scarring. The renal collecting systems and ureters are nondilated. No ureteral calculus. Lymphatics: No lymphadenopathy. Vasculature: No significant abnormality. Bowel/Peritoneum: Nonobstructive bowel pattern. Diverticulosis without mesocolonic fat stranding. No free air. No free fluid. Appendix not visualized. No pericecal inflammation. CT PELVIC: : No significant abnormality. Lymphatics: No lymphadenopathy. GI: Normal rectum and sigmoid colon. Osseous Structures: No aggressive appearing osseous lesions. Additional Findings: A small fat-containing umbilical hernia. IMPRESSION: 1. 2 nonobstructive right lower pole renal calculi and no obstructing calculi. No signs of pyelonephritis or pyonephrosis. 2. Previously identified bilateral tiny renal calculi are not identified on this exam and presumably have passed. 3. Status post cholecystectomy. 4. Mild diverticulosis but no diverticulitis. 5. A small fat-containing umbilical hernia. Signer Name: Juan Linder MD Signed: 02/20/2019 11:16 AM Workstation Name: [id number] - Medical Decision Making Patient is a 58-year-old female presenting with right flank pain. Patient also has some dysuria and urinary frequency. The patient's CT does have some small stones in the right kidney however there is no obstructing stones at this time. Cannot rule out a possible passed stone however. There is evidence of a UTI. Patient started on medication for symptomatic relief as well as antibiotics and she'll be discharged. Critical care attestation.: If time is entered above; I have spent that time in minutes in the direct care of this critically ill patient, excluding procedure time. ED Disposition Clinical Impression: Acute cystitis, Kidney stone Disposition: -01 TO HOME OR SELFCARE Is pt being admited?: No Does the pt Need Aspirin: No Condition: Stable Instructions: Urinary Tract Infection in Women (ED) Additional Instructions: 2 small kidney stones in your right kidney however they are not obstructing at this time. Referrals: ELIGIO KEMP MD [Primary Care Provider] - 3-5 Days Time of Disposition: 11:58
[2019-02-20 12:01] LABS: Band Neutrophils # (Manual) 0.1 K/mm3; Basophils % (Manual) 0 % (0.0-1.8); Eosinophils % (Manual) 0 % (0.0-4.3); Monocytes % (Manual) 0 % (0.0-7.3); Platelet Estimate Consistent w Auto; Promyelocytes # (Manual) 0.1 K/mm3; RBC Morphology Normal; Total Cells Counted 100
[2019-02-20 12:54] VITALS: BP 150/94
== END 2019-02-20 12:54 | disposition home or self-care (01) ==
LOC: ED 09:02
DX: N30.01 Acute cystitis with hematuria (principal); N20.0 Calculus of kidney; I12.9 Hypertensive chronic kidney disease with stage 1 through stage 4 chronic kidney disease, or unspecified chronic kidney disease; N18.9 Chronic kidney disease, unspecified; M54.9 Dorsalgia, unspecified; G89.29 Other chronic pain; Z88.1 Allergy status to other antibiotic agents; Z88.8 Allergy status to other drugs, medicaments and biological substances; Z79.1 Long term (current) use of non-steroidal anti-inflammatories (NSAID); Z79.899 Other long term (current) drug therapy; Z88.5 Allergy status to narcotic agent
CPT/HCPCS: 36415; 74176; 80048; 81001; 85007; 85025; 87086; 96374; 96375; 99284; J2270; J2405; J1885

== ENCOUNTER 2019-04-24 19:35 | Emergency (ER) | payer MEDICAID ==
[2019-04-24 23:06] VITALS: BP 173/68
[2019-04-24 23:31] LABS: Hemoglobin 8.7 gm/dl (10.1-14.3); Mean Corpuscular HGB Conc 35 % (30-34); Mean Corpuscular Volume 103 fl (79-97); Red Blood Count 2.42 M/mm3 (3.65-5.03)
[2019-04-24 23:55] LABS: Albumin 4.6 g/dL (3.9-5); Calcium 9.5 mg/dL (8.4-10.2)
[2019-04-25 00:13] LABS: Red Cell Distribution Width 20.2 % (13.2-15.2)
[2019-04-25 00:14] LABS: Platelet Count 46 K/mm3 (140-440)
[2019-04-25 02:00] LABS: Bacteria,Urine 4+ /HPF (Negative); Bilirubin,Urine NEG (Negative); Blood,Urine SM (Negative); Color,Urine Yellow (Yellow); Protein,Urine <15 mg/dL mg/dL (Negative); Urobilinogen,Urine < 2.0 mg/dL (<2.0)
[2019-04-25] MEDS ORDERED: SODIUM CHLORIDE 0.9% 1000 ML 1,000 ML IV ONE (02:25)
[2019-04-25] MEDS ORDERED: MORPHINE 4 MG/1 ML INJ IV ONE (02:25)
[2019-04-25] MEDS ORDERED: cefTRIAXone/NS 1 GM/50 ML 1 GM/50 ML BAG IV ONE (02:25)
[2019-04-25] MEDS ORDERED: ONDANSETRON 4 MG/2 ML INJ IV ONE (02:25)
--- NOTE | 2019-04-25 03:53 | Cat Scan Report ---
CT OF THE ABDOMEN AND PELVIS WITHOUT CONTRAST INDICATION / CLINICAL INFORMATION: Right flank pain and history of kidney stones.. TECHNIQUE: All CT scans at this location are performed using CT dose reduction for ALARA by means of automated e xposure control. COMPARISON: 02/20/2019. FINDINGS: ABDOMEN: There are a couple of nonobstructive calculi in the right mid kidney, the largest of which m easures approximately 6 mm. I see no evidence of hydronephrosis, perinephric soft tissue tissue stran ding or renal mass. The gallbladder is surgically absent. The liver, spleen, bile ducts, pancreas, adrenal glands, left k idney and bowel demonstrate no significant abnormality. No adenopathy is seen. The lung bases are maria dolores ar. PELVIS: The distal ureters and urinary bladder are normal. The uterus and ovaries are not identified. The appendix is not seen. There is no evidence of diverticulitis. There is a small fat-containing pe riumbilical hernia without complication. No abnormal mass or fluid collection is seen. There is bilat eral spondylolysis at L5 without significant spondylolisthesis. IMPRESSION: Nonobstructive right nephrolithiasis. No acute intra-abdominal disease is identified. Signer Name: Stan Nj MD Signed: 04/25/2019 3:48 AM Workstation Name: [id number]
--- NOTE | 2019-04-25 05:00 | Emergency Department Report ---
ED Abdominal Pain HPI - General Chief Complaint: Abdominal Pain Stated Complaint: KIDNEY STONES Source: patient, EMS Mode of arrival: Ambulatory Limitations: No Limitations - History of Present Illness Initial Comments: Patient is a 58-year-old white female with a history of recurrent kidney stones who presents to the ED record acute onset persistent severe right flank pain steve t is of the right lower quadrant area with intermittent nausea and vomiting and hematuria for the last 2 days. Patient states that her symptoms got worse in the last 12 hours. Patient denies vaginal bleeding, vaginal discharge, fever, chills, cough, chest pain, shortness of breath, dysuria, urinary frequency and urgency, diarrhea or syncope and dizziness. MD Complaint: abdominal pain (right flank), flank pain (Right flank pain), other (nausea and vomiting) -: Sudden, days(s) (2) Location: RLQ, suprapubic, R flank Radiation: RLQ, R flank Severity: moderate Severity scale (0 -10): 5 Quality: aching, sharp Consistency: constant Improves With: nothing Worsens With: nothing Associated Symptoms: nausea, vomiting, hematuria, anorexia. denies: denies other symptoms, diarrhea, fever, chills, constipation, dysuria, hematemesis, hematochezia, melena, syncope - Related Data Previous Rx's Medication Instructions Recorded Last Taken Type Nitrofurantoin Archer/M-Cryst 100 mg PO Q12HR #7 capsule 07/09/16 Unknown Rx [Macrobid CAP] HYDROcodone/APAP 5-325 [Clarence 1 each PO Q6HR PRN #12 tablet 09/07/16 Unknown Rx 5/325] Ibuprofen [Motrin] 800 mg PO Q8HR PRN #40 tablet 09/07/16 Unknown Rx Amoxicillin/Potassium Clav 1 each PO BID 14 Days #28 tablet 05/29/17 Unknown Rx [Augmentin 875-125 Tablet] Ibuprofen 800 mg PO Q6H PRN #30 tablet 05/29/17 Unknown Rx Diclofenac Sodium [Voltaren] 100 gm TP QID #1 gel..gram. 10/24/17 Unknown Rx Metoclopramide [Reglan] 10 mg PO QID PRN #30 tablet 06/30/18 Unknown Rx levoFLOXacin [Levaquin TAB] 500 mg PO QDAY #10 tablet 06/30/18 Unknown Rx HYDROcodone/ACETAMINOPHEN 1 each PO TID #10 tablet 07/30/18 Unknown Rx [Hydrocodone-Acetamin 7.5-300] Nitrofurantoin Archer/M-Cryst 100 mg PO Q12HR #14 capsule 07/30/18 Unknown Rx [Macrobid CAP] Ondansetron [Zofran Odt] 4 mg PO Q8HR PRN #14 tab.rapdis 07/30/18 Unknown Rx Sulfamethoxazole/Trimethoprim 1 each PO BID 10 Days #20 tablet 09/28/18 Unknown Rx [Bactrim DS TAB] Tamsulosin [Flomax] 0.4 mg PO QDAY #14 cap 09/28/18 Unknown Rx HYDROcodone/APAP 5-325 [Clarence 2 each PO Q6HR PRN #14 tablet 02/20/19 Unknown Rx 5/325] Ibuprofen [Motrin 600 MG tab] 600 mg PO Q8H PRN #20 tablet 02/20/19 Unknown Rx Nitrofurantoin Archer/M-Cryst 100 mg PO Q12HR #14 capsule 02/20/19 Unknown Rx [Macrobid CAP] Ondansetron [Zofran Odt] 4 mg PO Q8HR #10 tab.rapdis 02/20/19 Unknown Rx HYDROcodone/APAP 5-325 [Clarence 1 each PO Q6HR PRN #12 tablet 04/25/19 Unknown Rx 5-325 mg TAB] Ondansetron [Zofran Odt] 4 mg PO Q6HR PRN #20 tab.rapdis 04/25/19 Unknown Rx Tamsulosin [Flomax] 0.4 mg PO QDAY #10 cap 04/25/19 Unknown Rx cephALEXin [Keflex] 500 mg PO Q6HR #40 capsule 04/25/19 Unknown Rx Allergies Allergy/AdvReac Type Severity Reaction Status Date / Time acetaminophen Allergy Rash Verified 02/20/19 09:56 [From Darvocet-N 100] ciprofloxacin [From Cipro] Allergy Rash Verified 02/20/19 09:56 hydromorphone HCl Allergy Rash Verified 02/20/19 09:56 [From Dilaudid] ketorolac tromethamine Allergy Rash Verified 02/20/19 09:56 [From Toradol] nalbuphine HCl [From Nubain] Allergy Rash Verified 02/20/19 09:56 propoxyphene napsylate Allergy Rash Verified 02/20/19 09:56 [From Darvocet-N 100] tramadol HCl [From Ultram] Allergy Rash Verified 02/20/19 09:56 ED Review of Systems ROS: Stated complaint: KIDNEY STONES Other details as noted in HPI Constitutional: denies: chills, fever Eyes: denies: eye pain, eye discharge, vision change ENT: denies: ear pain, throat pain Respiratory: denies: cough, shortness of breath, wheezing Cardiovascular: denies: chest pain, palpitations Endocrine: no symptoms reported Gastrointestinal: abdominal pain (right flank), nausea, vomiting. denies: diarrhea, constipation, hematemesis Genitourinary: hematuria. denies: urgency, dysuria, discharge Musculoskeletal: back pain (lower). denies: joint swelling, arthralgia Skin: denies: rash, lesions Neurological: denies: headache, weakness, paresthesias Psychiatric: denies: anxiety, depression Hematological/Lymphatic: denies: easy bleeding, easy bruising ED Past Medical Hx - Past Medical History Previous Medical History?: Yes Hx Hypertension: Yes Hx CVA: No Hx Heart Attack/AMI: No Hx Congestive Heart Failure: No Hx Diabetes: No Hx Deep Vein Thrombosis: No Hx Pulmonary Embolism: No Hx GERD: No Hx Liver Disease: No Hx Renal Disease: Yes (ckd. ) Hx Sickle Cell Disease: No Hx Arthritis: No Hx Headaches / Migraines: No Hx Seizures: No Hx Kidney Stones: Yes Hx Psychiatric Treatment: No Hx Asthma: No Hx COPD: No Hx Tuberculosis: No Hx Dementia: No Hx HIV: No Additional medical history: chronic back pain, - Surgical History Past Surgical History?: Yes Hx Coronary Stent: No Hx Open Heart Surgery: No Hx Pacemaker: No Hx Internal Defibrillator: No Hx Cholecystectomy: Yes Hx Appendectomy: Yes Hx Breast Surgery: No Additional Surgical History: hysterectomy, hernia repair. LITHOTRIPSY - Social History Smoking Status: Current Every Day Smoker - Medications Home Medications: Home Medications Medication Instructions Recorded Confirmed Last Taken Type Nitrofurantoin Archer/M-Cryst 100 mg PO Q12HR #7 capsule 07/09/16 Unknown Rx [Macrobid CAP] HYDROcodone/APAP 5-325 [Clarence 1 each PO Q6HR PRN #12 tablet 09/07/16 Unknown Rx 5/325] Ibuprofen [Motrin] 800 mg PO Q8HR PRN #40 tablet 09/07/16 Unknown Rx Amoxicillin/Potassium Clav 1 each PO BID 14 Days #28 tablet 05/29/17 Unknown Rx [Augmentin 875-125 Tablet] Ibuprofen 800 mg PO Q6H PRN #30 tablet 05/29/17 Unknown Rx Diclofenac Sodium [Voltaren] 100 gm TP QID #1 gel..gram. 10/24/17 Unknown Rx Metoclopramide [Reglan] 10 mg PO QID PRN #30 tablet 06/30/18 Unknown Rx levoFLOXacin [Levaquin TAB] 500 mg PO QDAY #10 tablet 06/30/18 Unknown Rx HYDROcodone/ACETAMINOPHEN 1 each PO TID #10 tablet 07/30/18 Unknown Rx [Hydrocodone-Acetamin 7.5-300] Nitrofurantoin Archer/M-Cryst 100 mg PO Q12HR #14 capsule 07/30/18 Unknown Rx [Macrobid CAP] Ondansetron [Zofran Odt] 4 mg PO Q8HR PRN #14 tab.rapdis 07/30/18 Unknown Rx Sulfamethoxazole/Trimethoprim 1 each PO BID 10 Days #20 tablet 09/28/18 Unknown Rx [Bactrim DS TAB] Tamsulosin [Flomax] 0.4 mg PO QDAY #14 cap 09/28/18 Unknown Rx HYDROcodone/APAP 5-325 [Clarence 2 each PO Q6HR PRN #14 tablet 02/20/19 Unknown Rx 5/325] Ibuprofen [Motrin 600 MG tab] 600 mg PO Q8H PRN #20 tablet 02/20/19 Unknown Rx Nitrofurantoin Archer/M-Cryst 100 mg PO Q12HR #14 capsule 02/20/19 Unknown Rx [Macrobid CAP] Ondansetron [Zofran Odt] 4 mg PO Q8HR #10 tab.rapdis 02/20/19 Unknown Rx HYDROcodone/APAP 5-325 [Clarence 1 each PO Q6HR PRN #12 tablet 04/25/19 Unknown Rx 5-325 mg TAB] Ondansetron [Zofran Odt] 4 mg PO Q6HR PRN #20 tab.rapdis 04/25/19 Unknown Rx Tamsulosin [Flomax] 0.4 mg PO QDAY #10 cap 04/25/19 Unknown Rx cephALEXin [Keflex] 500 mg PO Q6HR #40 capsule 04/25/19 Unknown Rx ED Physical Exam - General Limitations: No Limitations General appearance: alert, in no apparent distress - Head Head exam: Present: atraumatic, normocephalic, normal inspection - Eye Eye exam: Present: normal appearance, PERRL, EOMI Pupils: Present: normal accommodation - ENT ENT exam: Present: normal exam, normal orophraynx, mucous membranes moist, TM's normal bilaterally, normal external ear exam - Neck Neck exam: Present: normal inspection, full ROM - Respiratory Respiratory exam: Present: normal lung sounds bilaterally. Absent: respiratory distress, wheezes, rales, rhonchi, chest wall tenderness, accessory muscle use, decreased breath sounds - Cardiovascular Cardiovascular Exam: Present: regular rate, normal rhythm, normal heart sounds. Absent: systolic murmur, diastolic murmur, rubs, gallop - GI/Abdominal GI/Abdominal exam: Present: soft, tenderness (palpable right flank and suprapubi c tenderness), normal bowel sounds. Absent: guarding, rebound, hyperactive bowel sounds, hypoactive bowel sounds - Extremities Exam Extremities exam: Present: normal inspection, full ROM, normal capillary refill - Back Exam Back exam: Present: normal inspection, full ROM, CVA tenderness (R). Absent: tenderness, muscle spasm - Neurological Exam Neurological exam: Present: alert, oriented X3, CN II-XII intact, normal gait, reflexes normal - Psychiatric Psychiatric exam: Present: normal affect, normal mood - Skin Skin exam: Present: warm, dry, intact, normal color. Absent: rash ED Course Vital Signs 04/24/19 23:05 Temperature 98.8 F Pulse Rate 88 Respiratory 18 Rate Blood Pressure 173/68 O2 Sat by Pulse 100 Oximetry ED Medical Decision Making - Lab Data Result diagrams: 04/24/19 23:11 04/24/19 23:11 - Radiology Data Radiology results: report reviewed, image reviewed Findings [facility] [address] [place] [address] Cat Scan Report Signed Patient: JOSHUA RIOS MR#: [id number] : 1960 Acct:[id number] Age/Sex: 58 / F ADM Date: 04/24/19 Loc: ED Attending Dr: Ordering Physician: LIZZ TEE Date of Service: 04/25/19 Procedure(s): CT abdomen pelvis wo con Accession Number(s): [id number] cc: LIZZ TEE CT OF THE ABDOMEN AND PELVIS WITHOUT CONTRAST INDICATION / CLINICAL INFORMATION: Right flank pain and history of kidney stones.. TECHNIQUE: All CT scans at this location are performed using CT dose reduction for ALARA by means of automated exposure control. COMPARISON: 02/20/2019. FINDINGS: ABDOMEN: There are a couple of nonobstructive calculi in the right mid kidney, the largest of which measures approximately 6 mm. I see no evidence of hydronephrosis, perinephric soft tissue tissue stranding or renal mass. The gallbladder is surgically absent. The liver, spleen, bile ducts, pancreas, adrenal glands, left kidney and bowel demonstrate no significant abnormality. No adenopathy is seen. The lung bases are clear. PELVIS: The distal ureters and urinary bladder are normal. The uterus and ovaries are not identified. The appendix is not seen. There is no evidence of diverticulitis. There is a small fat- containing periumbilical hernia without complication. No abnormal mass or fluid collection is seen. There is bilateral spondylolysis at L5 without significant spondylolisthesis. IMPRESSION: Nonobstructive right nephrolithiasis. No acute intra-abdominal disease is identified. Signer Name: Stan Nj MD Signed: 04/25/2019 3:48 AM Workstation Name: [id number] Transcribed By: RT Dictated By: Stan Nj MD Electronically Authenticated By: Stan Nj MD Signed Date/Time: 04/25/19 0348 DD/ 3 - Medical Decision Making This is a 58-year-old female with a history of chronic recurrent UTIs and kidney stones and who presents to the ED with complaint of acute onset and persistent severe right flank pain that radiates to the right lower quadrant and suprapubic area with nausea and vomiting and hematuria for the last 2 days. In the ED, patient is alert and oriented 3 and is not in distress but appears uncomfortable with normal vital signs. Patient was treated for pain in the ED. Lab test results were reviewed and show the urine of 24 and creatinine of 1.6 which is baseline and chronic, hemoglobin 8.7 and hematocrit of 25.0, and urinalysis that showed significant urinary tract infection with positive nitrite and >10 WBCs. Patient was treated for pain in the ED and also received Rocephin 1 g IV, and normal saline 1 L IV bolus with antiemetics. Abdomen pelvis CT scan without contrast showed a couple of nonobstructive calculi in the right mid kidney, the largest of which measures approximately 6 mm. I see no evidence of hydronephrosis, perinephric soft tissue tissue stranding or renal mass. The gallbladder is surgically absent. The liver, spleen, bile ducts, pancreas, adrenal glands, left kidney and bowel demonstrate no significant ab normality. No adenopathy is seen. The lung bases are clear. In the pelvis, the distal ureters and urinary bladder are normal. The uterus and ovaries are not identified. The appendix is not seen. There is no evidence of diverticulitis. There is a small fat- containing periumbilical hernia without complication. No abnormal mass or fluid collection is seen. There is bilateral spondylolysis at L5 without significant spondylolisthesis. IMPRESSION: Nonobstructive right nephrolithiasis. No acute intra-abdominal disease is identified. On reevaluation, patient's pain is well controlled with medications, patient sleeping comfortably in the room in no distress. Patient was discharged home on antibiotics and pain medications and was advised to follow-up with her primary care physician in 5-7 days for reevaluation. Patient was also advised to return to the ED immediately if symptoms get worse. - Differential Diagnosis Cystitis/UTI; Kidney stones; Pyelonephritis; appendicitis; Colitis; Critical care attestation.: If time is entered above; I have spent that time in minutes in the direct care of this critically ill patient, excluding procedure time. ED Disposition Clinical Impression: Acute urinary tract infection, Acute abdominal pain in right flank, Nausea and vomiting in adult patient, Kidney stone on right side Disposition: DC-01 TO HOME OR SELFCARE Is pt being admited?: No Does the pt Need Aspirin: No Condition: Stable Instructions: Abdominal Pain (ED), Kidney Stones (ED), Urinary Tract Infection in Women (ED), Acute Nausea and Vomiting (ED) Additional Instructions: Take medication with food, drink plenty of fluids and follow-up with her primary care physician in 7-10 days for reevaluation. Return to the ED immediately if symptoms get worse. Prescriptions: Tamsulosin [Flomax] 0.4 mg PO QDAY #10 cap cephALEXin [Keflex] 500 mg PO Q6HR #40 capsule HYDROcodone/APAP 5-325 [Clarence 5-325 mg TAB] 1 each PO Q6HR PRN #12 tablet PRN Reason: Pain Ondansetron [Zofran Odt] 4 mg PO Q6HR PRN #20 tab.rapdis PRN Reason: Nausea Referrals: DENICE FLORES MD [Staff Physician] - 3-5 Days Time of Disposition: 05:08 Print Language: THAI
[2019-04-25 07:10] LABS: Basophils % (Manual) 0 % (0.0-1.8); Eosinophils % (Manual) 0 % (0.0-4.3); Monocytes % (Manual) 0 % (0.0-7.3); Platelet Estimate Consistent w Auto; Total Cells Counted 100
[2019-04-25 10:37] LABS: Auer Rods Few
== END 2019-04-25 05:25 | disposition home or self-care (01) ==
LOC: ED 19:35
DX: N39.0 Urinary tract infection, site not specified (principal); N20.0 Calculus of kidney; Z88.6 Allergy status to analgesic agent; Z88.1 Allergy status to other antibiotic agents; I10 Essential (primary) hypertension; F17.200 Nicotine dependence, unspecified, uncomplicated; Z90.710 Acquired absence of both cervix and uterus; Z79.899 Other long term (current) drug therapy
CPT/HCPCS: 36415; 74176; 80053; 81001; 85007; 85025; 87076; 87086; 87186; 88184; 88185; 96365; 96375; 99284; J0696; J2270; J2405; J7030

== ENCOUNTER 2019-06-24 21:57 | Inpatient (IN) | payer MEDICARE ==
--- NOTE | 2019-06-24 22:18 | Event Note ---
ED Screening Note Date of service: 06/24/19 Time: 22:15 ED Screening Note: 58 y/o female comes in with SOB while lying down and bilateral leg swelling. Having right flank pain. This initial assessment/diagnostic orders/clinical plan/treatment(s) is/are subject to change based on patients health status, clinical progression and re- assessment by fellow clinical providers in the ED. Further treatment and workup at subsequent clinical providers discretion. Patient/guardian urged not to elope from the ED as their condition may be serious if not clinically assessed and managed. Initial orders include:
[2019-06-24 23:29] LABS: Bacteria,Urine 1+ /HPF (Negative); Bilirubin,Urine NEG (Negative); Blood,Urine NEG (Negative); Color,Urine Yellow (Yellow); Protein,Urine <15 mg/dL mg/dL (Negative)
[2019-06-24 23:54] LABS: Mean Corpuscular HGB Conc 34 % (30-34); Mean Corpuscular Volume 125 fl (79-97); Red Blood Count 0.93 M/mm3 (3.65-5.03); Red Cell Distribution Width 19.2 % (13.2-15.2)
[2019-06-24 23:57] LABS: Hemoglobin 3.9 gm/dl (10.1-14.3)
[2019-06-24 23:58] LABS: Hematocrit 11.7 % (30.3-42.9); Platelet Count 16 K/mm3 (140-440)
[2019-06-25] LABS: Albumin 4.4 g/dL (3.9-5)
[2019-06-25] MEDS ORDERED: SODIUM CHLORIDE 0.9% 500 ML 500 ML IV ONE ×2 (00:26→01:58)
[2019-06-25] MEDS ORDERED: ONDANSETRON 4 MG/2 ML INJ IV ONE (00:27)
[2019-06-25] MEDS ORDERED: MORPHINE 4 MG/1 ML INJ IV ONE (00:27)
--- NOTE | 2019-06-25 00:34 | Emergency Department Report ---
HPI - General Chief Complaint: Abdominal Pain Time Seen by Provider: 06/24/19 22:15 - HPI HPI: Room 8 The patient is a 58-year-old female present with a chief complaint of right flank pain shortness of breath and orthopnea. The patient states for appro ximate 1 week she has had shortness of breath that worsens whenever she lies flat. Patient states this morning she developed pain in her right flank prompting her to come to the emergency department. Patient denies fever, melena or bright red blood per rectum. Patient denies unexplained weight loss. Patient admits to hematuria but denies dysuria. ED Past Medical Hx - Past Medical History Previous Medical History?: Yes Hx Hypertension: Yes Hx Renal Disease: Yes (ckd. ) Hx Kidney Stones: Yes Additional medical history: chronic back pain, - Surgical History Past Surgical History?: Yes Hx Cholecystectomy: Yes Hx Appendectomy: Yes Additional Surgical History: hysterectomy, hernia repair. LITHOTRIPSY - Family History Family history: no significant - Social History Smoking Status: Current Every Day Smoker (1 pack/day) Substance Use Type: None (Denies illicit drug) - Medications Home Medications: Home Medications Medication Instructions Recorded Confirmed Last Taken Type Nitrofurantoin Talbot/M-Cryst 100 mg PO Q12HR #7 capsule 07/09/16 Unknown Rx [Macrobid CAP] HYDROcodone/APAP 5-325 [Independence 1 each PO Q6HR PRN #12 tablet 09/07/16 Unknown Rx 5/325] Ibuprofen [Motrin] 800 mg PO Q8HR PRN #40 tablet 09/07/16 Unknown Rx Amoxicillin/Potassium Clav 1 each PO BID 14 Days #28 tablet 05/29/17 Unknown Rx [Augmentin 875-125 Tablet] Ibuprofen 800 mg PO Q6H PRN #30 tablet 05/29/17 Unknown Rx Diclofenac Sodium [Voltaren] 100 gm TP QID #1 gel..gram. 10/24/17 Unknown Rx Metoclopramide [Reglan] 10 mg PO QID PRN #30 tablet 06/30/18 Unknown Rx levoFLOXacin [Levaquin TAB] 500 mg PO QDAY #10 tablet 06/30/18 Unknown Rx HYDROcodone/ACETAMINOPHEN 1 each PO TID #10 tablet 07/30/18 Unknown Rx [Hydrocodone-Acetamin 7.5-300] Nitrofurantoin Talbot/M-Cryst 100 mg PO Q12HR #14 capsule 07/30/18 Unknown Rx [Macrobid CAP] Ondansetron [Zofran Odt] 4 mg PO Q8HR PRN #14 tab.rapdis 07/30/18 Unknown Rx Sulfamethoxazole/Trimethoprim 1 each PO BID 10 Days #20 tablet 09/28/18 Unknown Rx [Bactrim DS TAB] Tamsulosin [Flomax] 0.4 mg PO QDAY #14 cap 09/28/18 Unknown Rx HYDROcodone/APAP 5-325 [Independence 2 each PO Q6HR PRN #14 tablet 02/20/19 Unknown Rx 5/325] Ibuprofen [Motrin 600 MG tab] 600 mg PO Q8H PRN #20 tablet 02/20/19 Unknown Rx Nitrofurantoin Talbot/M-Cryst 100 mg PO Q12HR #14 capsule 02/20/19 Unknown Rx [Macrobid CAP] Ondansetron [Zofran Odt] 4 mg PO Q8HR #10 tab.rapdis 02/20/19 Unknown Rx HYDROcodone/APAP 5-325 [Independence 1 each PO Q6HR PRN #12 tablet 04/25/19 Unknown Rx 5-325 mg TAB] Ondansetron [Zofran Odt] 4 mg PO Q6HR PRN #20 tab.rapdis 04/25/19 Unknown Rx Tamsulosin [Flomax] 0.4 mg PO QDAY #10 cap 04/25/19 Unknown Rx cephALEXin [Keflex] 500 mg PO Q6HR #40 capsule 04/25/19 Unknown Rx ED Review of Systems ROS: Stated complaint: BILATERAL LEG PAIN, RIGHT SIDE PAIN Other details as noted in HPI Constitutional: denies: fever Eyes: denies: eye pain ENT: denies: throat pain Respiratory: orthopnea, shortness of breath Cardiovascular: denies: chest pain Endocrine: no symptoms reported Gastrointestinal: abdominal pain Genitourinary: hematuria. denies: dysuria Musculoskeletal: back pain Neurological: denies: headache Physical Exam - Physical Exam Vital Signs: Vital Signs 06/24/19 22:01 Temperature 98.6 F Pulse Rate 102 H Respiratory 18 Rate Blood Pressure 129/50 O2 Sat by Pulse 100 Oximetry Physical Exam: GENERAL: The patient is well-developed well-nourished female sitting on stretcher not appearing to be in acute distress appearing pale. [] HEENT: Normocephalic. Atraumatic. Extraocular motions are intact. Patient has moist mucous membranes. NECK: Supple. Trachea midline CHEST/LUNGS: Clear to auscultation. There is no respiratory distress noted. HEART/CARDIOVASCULAR: Regular. There is no tachycardia. There is no gallop rub or murmur. ABDOMEN: Abdomen is soft, nontender. Patient has normal bowel sounds. There is no abdominal distention. SKIN: There is no rash. There is no edema. There is no diaphoresis. NEURO: The patient is awake, alert, and oriented. The patient is cooperative. The patient has normal speech MUSCULOSKELETAL: There is right flank pain. There is no evidence of acute injury. ED Course Vital Signs 06/24/19 22:01 Temperature 98.6 F Pulse Rate 102 H Respiratory 18 Rate Blood Pressure 129/50 O2 Sat by Pulse 100 Oximetry ED Medical Decision Making - Lab Data Result diagrams: 06/24/19 22:29 06/24/19 22:29 Laboratory Tests 06/24/19 06/24/19 06/24/19 22:29 22:29 22:46 WBC 6.9 RBC 0.93 L Hgb 3.9 L* Hct 11.7 L* MCV 125 H MCH 42 H MCHC 34 RDW 19.2 H Plt Count 16 L* Lymph % (Auto) Devil Tender Talbot % (Auto) Devil Tender Seg Neutrophils % Devil Tender Sodium 144 Potassium 4.1 Chloride 104.9 Carbon Dioxide 23 Anion Gap 20 BUN 33 H Creatinine 1.8 H Estimated GFR 29 BUN/Creatinine Ratio 18 Glucose 123 H Calcium 9.0 Total Bilirubin 0.20 AST 14 ALT 19 Alkaline Phosphatase 94 NT-Pro-B Natriuret Pep 2331 H Total Protein 7.3 Albumin 4.4 Albumin/Globulin Ratio 1.5 Urine Color Yellow Urine Turbidity Clear Urine pH 6.0 Ur Specific Myton 1.011 Urine Protein <15 mg/dl Urine Glucose (UA) Neg Urine Ketones Neg Urine Blood Neg Urine Nitrite Neg Urine Bilirubin Neg Urine Urobilinogen 2.0 Ur Leukocyte Esterase Lg Urine WBC (Auto) 12.0 H Urine RBC (Auto) 4.0 U Epithel Cells (Auto) 3.0 Urine Bacteria (Auto) 1+ - Radiology Data Radiology results: report reviewed (CT abdomen pelvis), image reviewed (Chest x- ray, CT abdomen pelvis) interpreted by me: Chest x-ray-no focal infiltrates, no pneumothorax Findings [facility] [address] [place] [address] Cat Scan Report Signed Patient: JOSHUA RIOS MR#: [id number] : 1960 Acct:[id number] Age/Sex: 58 / F ADM Date: 06/24/19 Loc: ED Attending Dr: Ordering Physician: YOAV GUERRERO MD Date of Service: 06/25/19 Procedure(s): CT abdomen pelvis wo con Accession Number(s): [id number] cc: YOAV GUERRERO MD CT ABDOMEN AND PELVIS WITHOUT CONTRAST INDICATION / CLINICAL INFORMATION: Right flank pain, thrombocytopenia. TECHNIQUE: Axial CT images were obtained through the abdomen and pelvis without IV contrast. All CT scans at this location are performed using CT dose reduction for ALARA by means of automated exposure co ntrol. COMPARISON: 04/25/2019 FINDINGS: LOWER CHEST: No significant abnormality. Mild cardiac enlargement is present LIVER: No significant abnormality. GALLBLADDER: Previous cholecystectomy BILE DUCTS: No significant abnormality. PANCREAS: No significant abnormality. SPLEEN: No significant abnormality. ADRENALS: No significant abnormality. RIGHT KIDNEY and URETER: Persistent right renal nephrolithiasis unchanged as compared to previous exam LEFT KIDNEY and URETER: No significant abnormality. STOMACH and SMALL BOWEL: No significant abnormality. COLON: No significant abnormality. APPENDIX: Not identified. PERITONEUM: Small ventral wall defect is again identified. No free fluid. No free air. No fluid collection. LYMPH NODES: No significant adenopathy. AORTA and ARTERIES: No significant abnormality. IVC and VEINS: No significant abnormality. URINARY BLADDER: No significant abnormality. REPRODUCTIVE ORGANS: No significant abnormality. Previous hysterectomy ADDITIONAL FINDINGS: None. SKELETAL SYSTEM: Bilateral pars defects noted at the level L5 IMPRESSION: 1. Right nephrolithiasis unchanged from previous exam 2. Bilateral pars defects L5 3. Ventral wall defect Signer Name: Roberto Solo MD Signed: 06/25/2019 1:12 AM Workstation Name: [id number] Transcribed By: CEDRIC Dictated By: Roberto Solo MD Electronically Authenticated By: Roberto Solo MD Signed Date/Time: 06/25/19111 DD/ 7 TD/TT: - Differential Diagnosis Symptomatic anemia, thrombocytopenia, renal colic, retroperitoneal hemorrha Critical care attestation.: If time is entered above; I have spent that time in minutes in the direct care of this critically ill patient, excluding procedure time. ED Disposition Clinical Impression: Symptomatic anemia, Thrombocytopenia, Right flank pain Disposition: OP ADMIT IP TO THIS HOSP Is pt being admited?: Yes Does the pt Need Aspirin: No Condition: Stable Instructions: Abdominal Pain (ED) Referrals: PRIMARY CARE, [Primary Care Provider] - 3-5 Days Time of Disposition: 01:26 (Hospitalist paged (Dr. Leela Joya))
[2019-06-25] MEDS ORDERED: SULFAMETHOXAZOLE/TRIMETHOPRIM 800/160MG DS TAB PO ONE (00:48)
--- NOTE | 2019-06-25 01:17 | Cat Scan Report ---
CT ABDOMEN AND PELVIS WITHOUT CONTRAST INDICATION / CLINICAL INFORMATION: Right flank pain, thrombocytopenia. TECHNIQUE: Axial CT images were obtained through the abdomen and pelvis without IV contrast. All CT scans at [facility] location are performed using CT dose reduction for ALARA by means of automated exposure control. COMPARISON: 04/25/2019 FINDINGS: LOWER CHEST: No significant abnormality. Mild cardiac enlargement is present LIVER: No significant abnormality. GALLBLADDER: Previous cholecystectomy BILE DUCTS: No significant abnormality. PANCREAS: No significant abnormality. SPLEEN: No significant abnormality. ADRENALS: No significant abnormality. RIGHT KIDNEY and URETER: Persistent right renal nephrolithiasis unchanged as compared to previous exa m LEFT KIDNEY and URETER: No significant abnormality. STOMACH and SMALL BOWEL: No significant abnormality. COLON: No significant abnormality. APPENDIX: Not identified. PERITONEUM: Small ventral wall defect is again identified. No free fluid. No free air. No fluid colle ction. LYMPH NODES: No significant adenopathy. AORTA and ARTERIES: No significant abnormality. IVC and VEINS: No significant abnormality. URINARY BLADDER: No significant abnormality. REPRODUCTIVE ORGANS: No significant abnormality. Previous hysterectomy ADDITIONAL FINDINGS: None. SKELETAL SYSTEM: Bilateral pars defects noted at the level L5 IMPRESSION: 1. Right nephrolithiasis unchanged from previous exam 2. Bilateral pars defects L5 3. Ventral wall defect Signer Name: Roberto Solo MD Signed: 06/25/2019 1:12 AM Workstation Name: [id number]
[2019-06-25] MEDS ORDERED: ONDANSETRON 4 MG/2 ML INJ IV PRN (01:54)
[2019-06-25] MEDS ORDERED: diphenhydrAMINE 50 MG/ML VIAL IV PRN (01:59)
[2019-06-25] MEDS ORDERED: cefTRIAXone/NS 1 GM/50 ML 1 GM/50 ML BAG IV SCH (02:00)
[2019-06-25] MEDS ORDERED: SODIUM CHLORIDE 0.45% 1000 ML 1,000 ML IV SCH (02:00)
--- NOTE | 2019-06-25 02:14 | History and Physical Report ---
History of Present Illness History of present illness: 58-year-old woman history of hypertension, chronic kidney disease, kidney stone, chronic pain comes emergency room with complaints for evaluation. She states that she has been having shortness of breath, mild orthopnea, generalized weakness and someone told her that she looks very pale. Her symptoms have been ongoing for 1 week. States she has not seen a primary care physician since 28 10. Denies bleeding from gums, joints or other mucosa. Patient will be admitted for severe anemia, thrombocytopenia Review Of Systems: Constitutional: no weight loss, fever, chills Ears, eyes, nose, mouth and throat: no nasal congestion, no nasal discharge, no sinus pressure, blurry vision, diplopia Neck: No neck pain or rigidity. Cardiovascular: No palpitations, chest pain Respiratory: No cough Gastrointestinal: No hematochezia Genitourinary : no dysuria, frequency Musculoskeletal: no muscle ache , joint pain Integumentary: no rash, no pruritis Neurological: no parathesias, focal weakness Endocrine: no cold or heat intolerance, no polyuria or polydipsia Hematologic/Lymphatic: no easy bruising, no easy bleeding, no gland swelling Allergic/Immunologic: no urticaria, no angioedema. PAST MEDICAL HISTORY: hypertension, chronic pain, chronic kidney disease, kidney stone PAST SURGICAL HISTORY: Hysterectomy, cystectomy, hernia repair, appendectomy SOCIAL HISTORY: Denies alcohol, tobacco, drugs FAMILY HISTORY: Hypertension Medications and Allergies Allergies Allergy/AdvReac Type Severity Reaction Status Date / Time acetaminophen Allergy Rash Verified 02/20/19 09:56 [From Darvocet-N 100] ciprofloxacin [From Cipro] Allergy Rash Verified 02/20/19 09:56 hydromorphone HCl Allergy Rash Verified 02/20/19 09:56 [From Dilaudid] ketorolac tromethamine Allergy Rash Verified 02/20/19 09:56 [From Toradol] nalbuphine HCl [From Nubain] Allergy Rash Verified 02/20/19 09:56 propoxyphene napsylate Allergy Rash Verified 02/20/19 09:56 [From Darvocet-N 100] tramadol HCl [From Ultram] Allergy Rash Verified 02/20/19 09:56 Home Medications Medication Instructions Recorded Confirmed Last Taken Type Amlodipine Besylate [Norvasc] 5 mg PO DAILY 06/25/19 06/25/19 Unknown History Valsartan [Diovan] 40 mg PO DAILY 06/25/19 06/25/19 Unknown History Active Meds: Active Medications Diphenhydramine HCl (Benadryl) 25 mg IV Q6H PRN PRN Reason: Itching Sodium Chloride (Nacl 0.45% 1000 Ml) 1,000 mls @ 75 mls/hr IV DIRECT MIRYAM Ceftriaxone Sodium (Rocephin/Ns 1 Gm/50 Ml) 1 gm in 50 mls @ 100 mls/hr IV Q24H MIRYAM; Protocol Ondansetron HCl (Zofran) 4 mg IV Q8H PRN PRN Reason: Nausea And Vomiting Sodium Chloride (Sodium Chloride Flush Syringe 10 Ml) 10 ml IV BID MIRYAM Sodium Chloride (Sodium Chloride Flush Syringe 10 Ml) 10 ml IV PRN PRN PRN Reason: LINE FLUSH Exam - Physical Exam Narrative exam: Gen. appearance: Patient lying in bed, no apparent distress HEENT: Normocephalic, atraumatic, pupils equally round and reactive to light, extraocular movement intact, and no sclericterus,. No JVD or thyromegaly or nodule,neck supple, no carotid bruit ,mucous membranes moist, no exudate or erythema Heart: S1, S2, regular rate and rhythm Lungs: Clear bilaterally, breathing comfortable Abdomen: Positive bowel sounds, nontender, nondistended, no organomegaly Extremity: no edema, cyanosis, clubbing Skin: No rash, nodules, warm, dry Neuro: Cranial nerves II to XII intact, speech is fluent, moves extremities, sensory intact - Constitutional Vitals: Temp Pulse Resp BP Pulse Ox 98.6 F 102 H 20 129/50 100 06/24/19 22:01 06/24/19 22:01 06/25/19 01:33 06/24/19 22:01 06/25/19 01:33 Results - Labs CBC & Chem 7: 06/24/19 22:29 06/24/19 22:29 Labs: Abnormal lab results 06/24/19 06/24/19 06/24/19 Range/Units 22:29 22:29 22:46 RBC 0.93 L (3.65-5.03) M/mm3 Hgb 3.9 L* (10.1-14.3) gm/dl Hct 11.7 L* (30.3-42.9) % MCV 125 H (79-97) fl MCH 42 H (28-32) pg RDW 19.2 H (13.2-15.2) % Plt Count 16 L* (140-440) K/mm3 BUN 33 H (7-17) mg/dL Creatinine 1.8 H (0.7-1.2) mg/dL Glucose 123 H (65-100) mg/dL NT-Pro-B Natriuret Pep 2331 H (0-900) pg/mL Urine WBC (Auto) 12.0 H (0.0-6.0) /HPF Crossmatch 06/25/19 Range/Units 00:48 RBC (3.65-5.03) M/mm3 Hgb (10.1-14.3) gm/dl Hct (30.3-42.9) % MCV (79-97) fl MCH (28-32) pg RDW (13.2-15.2) % Plt Count (140-440) K/mm3 BUN (7-17) mg/dL Creatinine (0.7-1.2) mg/dL Glucose (65-100) mg/dL NT-Pro-B Natriuret Pep (0-900) pg/mL Urine WBC (Auto) (0.0-6.0) /HPF Crossmatch See Detail - Imaging and Cardiology CT scan - abdomen: report reviewed CT scan - pelvis: report reviewed Assessment and Plan Assessment Pancytopenia, rule out bone marrow pathology Transfuse packed red blood cell, consult oncology Hold transfusion of platelet right now, no bleeding Review of records shows platelets trending down since February 2019 Urinary tract infection, start IV Rocephin, follow cultures Chronic kidney disease, stable DVT prophylaxis
[2019-06-25 02:33] LABS: INR 1.04 (0.87-1.13); INR 1.08 (0.87-1.13); Partial Thromboplastin Time 28.1 Sec. (24.2-36.6)
[2019-06-25 04:10] LABS: Basophils % (Manual) 0 % (0.0-1.8); Eosinophils % (Manual) 0 % (0.0-4.3); Monocytes % (Manual) 0 % (0.0-7.3); Total Cells Counted 100
[2019-06-25 04:16] LABS: Anisocytosis Few
[2019-06-25 04:17] LABS: Hypochromasia 1+
[2019-06-25 04:18] LABS: Schistocytes Rare; Tear Drop Cells Rare
[2019-06-25 04:19] LABS: Platelet Estimate Consistent w Auto
[2019-06-25] MEDS: MORPHINE 2 MG/1 ML INJ IV PRN ×4 (06:10→18:21)
[2019-06-25] MEDS ORDERED: PANTOPRAZOLE 40 MG INJ IV SCH (10:00)
[2019-06-25 13:12] VITALS: BP 142/66
--- NOTE | 2019-06-25 14:05 | XRay Report ---
CHEST 2 VIEWS INDICATION / CLINICAL INFORMATION: SOB, worst with lying down. COMPARISON: One view of the chest from 12/28/2018. FINDINGS: SUPPORT DEVICES: None. HEART / MEDIASTINUM: No significant abnormality. LUNGS / PLEURA: No significant pulmonary or pleural abnormality. No pneumothorax. ADDITIONAL FINDINGS: No significant additional findings. IMPRESSION: 1. No acute abnormality of the chest. Signer Name: Antoni Araiza MD Signed: 06/25/2019 2:00 PM Workstation Name: [id number]
[2019-06-25 16:21] LABS: Hemoglobin 6.9 gm/dl (10.1-14.3); Mean Corpuscular HGB Conc 35 % (30-34); Mean Corpuscular Volume 102 fl (79-97); Red Blood Count 1.95 M/mm3 (3.65-5.03)
[2019-06-25 16:40] LABS: Calcium 8.6 mg/dL (8.4-10.2)
[2019-06-25 16:54] LABS: Red Cell Distribution Width 26.1 % (13.2-15.2)
[2019-06-25 17:00] LABS: Hematocrit 19.9 % (30.3-42.9); Platelet Count 13 K/mm3 (140-440)
--- NOTE | 2019-06-25 17:26 | Event Note ---
Date: 06/25/19 Had extensive discussion with the patient and family member at bedside. Explained renal function severe anemia and thrombocytopenia and risk of associated with this or permanent disability secondary to brain bleed. Patient was agreeable to stay and continue treatment. Will reevaluate in a.m. while awaiting mail technician evaluation.
[2019-06-25] MEDS ORDERED: SODIUM CHLORIDE 0.9% 1000 ML 1,000 ML IV SCH (17:30)
--- NOTE | 2019-06-26 08:26 | Discharge Summary ---
Providers - Providers Date of Admission: 06/25/19 02:52 Attending physician: KIRTI ALSTON MD 06/25/19 01:54 Consult to Physician [CONS] Routine Comment: Consulting Provider: LEWIS CHOU Physician Instructions: Reason For Exam: anemia/thrombocytopenia Primary care physician: JARAD EWING MD Hospitalization Condition: Stable Hospital course: received a call about patients blood work. notified pathology that patient left the hospital I notifed the family and they will have her follow with PCP I will also have our clinic reach out to her Disposition: [id number] LEFT AGAINST MED ADVICE Core Measure Documentation - Palliative Care Palliative Care/ Comfort Measures: Not Applicable Exam - Constitutional Vitals: Temp Pulse Resp BP Pulse Ox 98.2 F 82 18 142/66 98 06/25/19 12:57 06/25/19 13:00 06/25/19 12:27 06/25/19 12:57 06/25/19 10:00 Plan Follow up with: JARAD EWING MD [Primary Care Provider] - 3-5 Days
[2019-06-26 14:45] LABS: Auer Rods Few
== END 2019-06-25 20:37 | disposition left against medical advice (07) | DRG 809 ==
LOC: ED 21:57 → 4A 06-25 02:52
PROVIDERS: ADMIT Internal Medicine; ATTEND Internal Medicine
PROC: 30233N1 Transfusion of Nonautologous Red Blood Cells into Peripheral Vein, Percutaneous Approach (ICD-10-PCS; principal; 2019-06-25)
DX: D61.818 Other pancytopenia (principal); N39.0 Urinary tract infection, site not specified; D64.9 Anemia, unspecified; R31.9 Hematuria, unspecified; G89.29 Other chronic pain; M54.9 Dorsalgia, unspecified; F17.210 Nicotine dependence, cigarettes, uncomplicated; D69.6 Thrombocytopenia, unspecified; I12.9 Hypertensive chronic kidney disease with stage 1 through stage 4 chronic kidney disease, or unspecified chronic kidney disease; N18.9 Chronic kidney disease, unspecified; Z90.49 Acquired absence of other specified parts of digestive tract; Z90.710 Acquired absence of both cervix and uterus; Z87.442 Personal history of urinary calculi; Z82.49 Family history of ischemic heart disease and other diseases of the circulatory system
CPT/HCPCS: 36415; 71046; 74176; 80048; 80053; 81001; 83880; 85007; 85025; 85027; 85610; 85730; 86850; 86900; 86901; 86920; 87040; 87086; 88184; 88185; G0378; C9113; J0696; J2270; J2405; J7030; J7040; P9016

== ENCOUNTER 2019-10-13 00:53 | Emergency (ER) | payer MEDICARE ==
[2019-10-13] MEDS ORDERED: DEXTROSE 50% IN WATER (25GM) 50 ML SYRINGE IV ONE ×3 (00:58→10:00)
[2019-10-13] MEDS ORDERED: NORepinephrine/NS 4 MG-250 ML 4 MG/250 ML BAG IV ONE (01:40)
[2019-10-13 01:51] LABS: ABG Base Excess -14.3 mmol/L (-2.0-3.0); ABG HCO3 10.5 mmol/L (20.0-26.0); ABG Methemoglobin 0.5 % (0.0-1.5); ABG Oxygen Saturation 99.6 % (95.0-99.0); ABG PCO2 20.6 mm Hg; ABG PH 7.324 pH Units (7.350-7.450)
[2019-10-13 01:54] LABS: ABG PO2 404.7 mm Hg (80.0-90.0)
[2019-10-13] MEDS ORDERED: SODIUM CHLORIDE 0.9% 1000 ML IV SOLN IV ONE (02:33)
[2019-10-13] MEDS ORDERED: CEFEPIME/NS 2 GM/100 ML 2 GM/100 ML BAG IV ONE (02:34)
[2019-10-13] MEDS ORDERED: VANCOMYCIN 1,250 MG in SODIUM CHLORIDE 0.9% 250ML 250 ML IV ONE (02:34)
--- NOTE | 2019-10-13 02:41 | XRay Report ---
CHEST 1 VIEW 1:58 AM INDICATION / CLINICAL INFORMATION: Shortness of breath. Post intubation. COMPARISON: 08/10/19. FINDINGS: SUPPORT DEVICES: There is a new endotracheal tube with the tip 4 cm above the rachna. HEART / MEDIASTINUM: The heart size and pulmonary vasculature are normal. LUNGS / PLEURA: Patchy bilateral parenchymal opacities have cleared. There is minimal left basilar baron bsegmental atelectasis. No pneumothorax. ADDITIONAL FINDINGS: No significant additional findings. IMPRESSION: 1. Endotracheal tube in satisfactory position radiographically. 2. Mild patchy parenchymal opacities bilaterally have cleared. Signer Name: Stan Nj MD Signed: 10/13/2019 2:37 AM Workstation Name: [id number]
[2019-10-13] MEDS ORDERED: NORepinephrine/NS 4 MG-250 ML 4 MG/250 ML BAG IV SCH (03:00)
--- NOTE | 2019-10-13 03:07 | Emergency Department Report ---
ED Altered Mental Status HPI - General Chief Complaint: Altered Mental Status Stated Complaint: DIFFICULTY IN BREATHING Time Seen by Provider: 10/13/19 02:13 Source: EMS Mode of arrival: Stretcher Limitations: No Limitations - History of Present Illness Initial Comments: 59-year-old female with history of cancer, kidney stones, chronic renal disease, presents to ED with altered mental status. EMS reports they were called to the home earlier in the day, but patient refused transport at that time. Patient called for EMS again because she became altered and short of breath. EMS reports patient is febrile, hypotensive, and hypoxic. Patient arrives to ED with nonrebreather and nasal trumpet in place. EMS reports initial accucheck of <20. One amp of D50 was given. Repeat accucheck by EMS was only in the 40's. Initial accucheck here in ED back down to <40, so 2 amps of D50 given. Repeat accucheck here in ED was 27, so another 2 amps of D50 were given. Decision was made to intubate due to respiratory distress and altered mental status. MD Complaint: altered mental status -: days(s) (1) Severity: severe Consistency of Symptoms: getting worse Associated Symptoms: shortness of breath - Related Data Home Medications Medication Instructions Recorded Confirmed Last Taken Amlodipine Besylate [Norvasc] 5 mg PO DAILY 06/25/19 08/10/19 Unknown Valsartan [Diovan] 40 mg PO DAILY 06/25/19 08/10/19 Unknown Allergies Allergy/AdvReac Type Severity Reaction Status Date / Time acetaminophen Allergy Rash Verified 02/20/19 09:56 [From Darvocet-N 100] ciprofloxacin [From Cipro] Allergy Rash Verified 02/20/19 09:56 hydromorphone HCl Allergy Rash Verified 02/20/19 09:56 [From Dilaudid] ketorolac tromethamine Allergy Rash Verified 02/20/19 09:56 [From Toradol] nalbuphine HCl [From Nubain] Allergy Rash Verified 02/20/19 09:56 propoxyphene napsylate Allergy Rash Verified 02/20/19 09:56 [From Darvocet-N 100] tramadol HCl [From Ultram] Allergy Rash Verified 02/20/19 09:56 ED Review of Systems ROS: Stated complaint: DIFFICULTY IN BREATHING Other details as noted in HPI Comment: Unobtainable due to pts medical conditions Respiratory: shortness of breath ED Past Medical Hx - Past Medical History Hx Hypertension: Yes Hx CVA: No Hx Heart Attack/AMI: No Hx Congestive Heart Failure: No Hx Diabetes: No Hx Deep Vein Thrombosis: No Hx Pulmonary Embolism: No Hx GERD: No Hx Liver Disease: No Hx Renal Disease: Yes Hx Sickle Cell Disease: No Hx Arthritis: No Hx Headaches / Migraines: No Hx Seizures: No Hx Kidney Stones: Yes Hx Psychiatric Treatment: No Hx Asthma: No Hx COPD: No Hx Tuberculosis: No Hx Dementia: No Hx HIV: No Additional medical history: chronic back pain, - Surgical History Hx Coronary Stent: No Hx Open Heart Surgery: No Hx Pacemaker: No Hx Internal Defibrillator: No Hx Cholecystectomy: Yes Hx Appendectomy: Yes Hx Breast Surgery: No Additional Surgical History: hysterectomy, hernia repair. LITHOTRIPSY - Social History Smoking Status: Smoker, Current Status Unknown - Medications Home Medications: Home Medications Medication Instructions Recorded Confirmed Last Taken Type Amlodipine Besylate [Norvasc] 5 mg PO DAILY 06/25/19 08/10/19 Unknown History Valsartan [Diovan] 40 mg PO DAILY 06/25/19 08/10/19 Unknown History ED Physical Exam - General Limitations: No Limitations General appearance: obtunded - Head Head exam: Present: atraumatic, normocephalic - Eye Eye exam: Present: normal appearance - ENT ENT exam: Present: mucous membranes dry - Neck Neck exam: Present: other - Respiratory Respiratory exam: Present: respiratory distress, other (tachypnea present) - Cardiovascular Cardiovascular Exam: Present: normal rhythm, tachycardia - GI/Abdominal GI/Abdominal exam: Present: soft. Absent: distended - Extremities Exam Extremities exam: Present: normal inspection - Neurological Exam Neurological exam: Present: other (minimal withdrawal to pain) - Skin Skin exam: Present: other (mottled appearance) ED Course Vital Signs 10/13/19 10/13/19 10/13/19 01:02 01:16 01:30 Temperature Pulse Rate 103 H 129 H 120 H Respiratory 35 H 34 H 38 H Rate Blood Pressure 86/40 82/43 O2 Sat by Pulse 100 Oximetry 10/13/19 10/13/19 10/13/19 01:46 02:00 02:15 Temperature Pulse Rate 124 H 124 H 119 H Respiratory 31 H 29 H 28 H Rate Blood Pressure 76/30 82/43 76/49 O2 Sat by Pulse Oximetry 10/13/19 10/13/19 10/13/19 02:23 02:30 02:46 Temperature 102 F H Pulse Rate 108 H 70 Respiratory 26 H 21 Rate Blood Pressure 76/30 63/25 O2 Sat by Pulse Oximetry 10/13/19 10/13/19 10/13/19 03:00 03:16 03:30 Temperature Pulse Rate 121 H 118 H Respiratory 61 H 17 20 Rate Blood Pressure 85/27 66/48 66/48 O2 Sat by Pulse 35 L Oximetry 10/13/19 03:46 Temperature Pulse Rate 215 H Respiratory 20 Rate Blood Pressure 234/32 O2 Sat by Pulse Oximetry - Reevaluation(s) Reevaluation #1: 10/13/19 03:04 Called to bedside by RN. Pt pulseless, went into asystole. One round of ACLS performed w/ epix1 and bicarb x1 given. Pt had return of pulses. - Central Line Placement Right Femoral Consent Obtained: emergent situation Time Out Performed: Yes Patient Placed on Monitor/Pulse Ox: Yes MD Prep: mask, gown, gloves Central Line Prep: Chlorhexidine scrub Ultrasound Used for Placement: No Central Line Lumen Inserted: triple Bloods Obtained for Lab: No Central Line Position: good blood return, all ports aspirated, flus, sutured in place with nyl Dressing Applied: Tegaderm Patient Tolerated Procedure: well Complications: none - Intubation Time Out Performed: Yes Sedative: Etomidate Mg Given: 20 Paralytic: Succinylcholine Mg Given: 150 Laryngoscope: fiberoptic video scope ET Tube Size: 7.5 Tube Secured Depth (cm): 22 Tube Secured Location: teeth Tube Placement Confirmation: visualized tube passing t, equal breath sounds bilat, no breath sounds over epi Patient Tolerated Procedure: well Intubation Complications: none - Lab Data Result diagrams: 10/13/19 03:57 10/13/19 02:35 Lab Results 10/13/19 10/13/19 10/13/19 Range/Units 01:26 01:37 02:35 WBC (4.5-11.0) K/mm3 RBC (3.65-5.03) M/mm3 Hgb (10.1-14.3) gm/dl Hct (30.3-42.9) % MCV (79-97) fl MCH (28-32) pg MCHC (30-34) % RDW (13.2-15.2) % Plt Count (140-440) K/mm3 PT (12.2-14.9) Sec. INR (0.87-1.13) APTT 40.1 H (24.2-36.6) Sec. ABG pH (7.350-7.450) pH Units ABG pCO2 mm Hg ABG pO2 (80.0-90.0) mm Hg ABG HCO3 (20.0-26.0) mmol/L ABG O2 Saturation (95.0-99.0) % ABG O2 Content (0.0-44) ABG Base Excess (-2.0-3.0) mmol/L ABG Hemoglobin (12.0-16.0) gm/dl ABG Carboxyhemoglobin (0.0-5.0) % ABG Methemoglobin (0.0-1.5) % Oxyhemoglobin (95.0-99.0) % FiO2 % Sodium (137-145) mmol/L Potassium (3.6-5.0) mmol/L Chloride (98-107) mmol/L Carbon Dioxide (22-30) mmol/L Anion Gap mmol/L BUN (7-17) mg/dL Creatinine (0.7-1.2) mg/dL Estimated GFR ml/min BUN/Creatinine Ratio % Glucose (65-100) mg/dL POC Glucose < 40 L 336 H (70-105) Lactic Acid (0.7-2.0) mmol/L Calcium (8.4-10.2) mg/dL Total Bilirubin (0.1-1.2) mg/dL AST (5-40) units/L ALT (7-56) units/L Alkaline Phosphatase (35-129) units/L Troponin T (0.00-0.029) ng/mL Total Protein (6.3-8.2) g/dL Albumin (3.9-5) g/dL Albumin/Globulin Ratio % Triglycerides (2-149) mg/dL Cholesterol (50-199) mg/dL LDL Cholesterol Direct (50-130) mg/dL HDL Cholesterol (40-59) mg/dL Cholesterol/HDL Ratio % Urine Color (Yellow) Urine Turbidity (Clear) Urine pH (5.0-7.0) Ur Specific [place] (1.003-1.030) Urine Protein (Negative) mg/dL Urine Glucose (UA) (Negative) mg/dL Urine Ketones (Negative) mg/dL Urine Blood (Negative) Urine Nitrite (Negative) Urine Bilirubin (Negative) Urine Urobilinogen (<2.0) mg/dL Ur Leukocyte Esterase (Negative) Urine WBC (Auto) (0.0-6.0) /HPF Urine RBC (Auto) (0.0-6.0) /HPF U Epithel Cells (Auto) (0-13.0) /HPF Urine Bacteria (Auto) (Negative) /HPF Urine Mucus /HPF 10/13/19 10/13/19 10/13/19 Range/Units 02:35 03:40 03:41 WBC (4.5-11.0) K/mm3 RBC (3.65-5.03) M/mm3 Hgb (10.1-14.3) gm/dl Hct (30.3-42.9) % MCV (79-97) fl MCH (28-32) pg MCHC (30-34) % RDW (13.2-15.2) % Plt Count (140-440) K/mm3 PT (12.2-14.9) Sec. INR (0.87-1.13) APTT (24.2-36.6) Sec. ABG pH (7.350-7.450) pH Units ABG pCO2 mm Hg ABG pO2 (80.0-90.0) mm Hg ABG HCO3 (20.0-26.0) mmol/L ABG O2 Saturation (95.0-99.0) % ABG O2 Content (0.0-44) ABG Base Excess (-2.0-3.0) mmol/L ABG Hemoglobin (12.0-16.0) gm/dl ABG Carboxyhemoglobin (0.0-5.0) % ABG Methemoglobin (0.0-1.5) % Oxyhemoglobin (95.0-99.0) % FiO2 % Sodium 135 L (137-145) mmol/L Potassium 3.6 (3.6-5.0) mmol/L Chloride 102.9 (98-107) mmol/L Carbon Dioxide 10 L (22-30) mmol/L Anion Gap 26 mmol/L BUN 95 H (7-17) mg/dL Creatinine 5.9 H (0.7-1.2) mg/dL Estimated GFR 7 ml/min BUN/Creatinine Ratio 16 % Glucose 388 H (65-100) mg/dL POC Glucose 383 H (70-105) Lactic Acid (0.7-2.0) mmol/L Calcium 6.8 L (8.4-10.2) mg/dL Total Bilirubin 0.70 (0.1-1.2) mg/dL AST 154 H (5-40) units/L ALT 106 H (7-56) units/L Alkaline Phosphatase 155 H (35-129) units/L Troponin T 0.046 H (0.00-0.029) ng/mL Total Protein 4.7 L (6.3-8.2) g/dL Albumin 1.8 L (3.9-5) g/dL Albumin/Globulin Ratio 0.6 % Triglycerides 298 H (2-149) mg/dL Cholesterol 76 (50-199) mg/dL LDL Cholesterol Direct 6 L (50-130) mg/dL HDL Cholesterol 7 L (40-59) mg/dL Cholesterol/HDL Ratio 10.85 % Urine Color Yellow (Yellow) Urine Turbidity Turbid (Clear) Urine pH 5.0 (5.0-7.0) Ur Specific [place] 1.026 (1.003-1.030) Urine Protein 100 mg/dl (Negative) mg/dL Urine Glucose (UA) Neg (Negative) mg/dL Urine Ketones Neg (Negative) mg/dL Urine Blood Lg (Negative) Urine Nitrite Neg (Negative) Urine Bilirubin Neg (Negative) Urine Urobilinogen < 2.0 (<2.0) mg/dL Ur Leukocyte Esterase Sm (Negative) Urine WBC (Auto) 79.0 H (0.0-6.0) /HPF Urine RBC (Auto) > 182.0 (0.0-6.0) /HPF U Epithel Cells (Auto) 4.0 (0-13.0) /HPF Urine Bacteria (Auto) 1+ (Negative) /HPF Urine Mucus 3+ /HPF 10/13/19 10/13/19 10/13/19 Range/Units 03:57 03:57 03:57 WBC 9.5 (4.5-11.0) K/mm3 RBC 1.24 L (3.65-5.03) M/mm3 Hgb 3.9 L* (10.1-14.3) gm/dl Hct 13.8 L* (30.3-42.9) % MCV 111 H (79-97) fl MCH 32 (28-32) pg MCHC 28 L (30-34) % RDW 16.9 H (13.2-15.2) % Plt Count 10 L* (140-440) K/mm3 PT (12.2-14.9) Sec. INR (0.87-1.13) APTT (24.2-36.6) Sec. ABG pH (7.350-7.450) pH Units ABG pCO2 mm Hg ABG pO2 (80.0-90.0) mm Hg ABG HCO3 (20.0-26.0) mmol/L ABG O2 Saturation (95.0-99.0) % ABG O2 Content (0.0-44) ABG Base Excess (-2.0-3.0) mmol/L ABG Hemoglobin (12.0-16.0) gm/dl ABG Carboxyhemoglobin (0.0-5.0) % ABG Methemoglobin (0.0-1.5) % Oxyhemoglobin (95.0-99.0) % FiO2 % Sodium (137-145) mmol/L Potassium (3.6-5.0) mmol/L Chloride (98-107) mmol/L Carbon Dioxide (22-30) mmol/L Anion Gap mmol/L BUN (7-17) mg/dL Creatinine (0.7-1.2) mg/dL Estimated GFR ml/min BUN/Creatinine Ratio % Glucose (65-100) mg/dL POC Glucose (70-105) Lactic Acid 18.60 H* (0.7-2.0) mmol/L Calcium (8.4-10.2) mg/dL Total Bilirubin (0.1-1.2) mg/dL AST (5-40) units/L ALT (7-56) units/L Alkaline Phosphatase (35-129) units/L Troponin T 0.073 H D (0.00-0.029) ng/mL Total Protein (6.3-8.2) g/dL Albumin (3.9-5) g/dL Albumin/Globulin Ratio % Triglycerides (2-149) mg/dL Cholesterol (50-199) mg/dL LDL Cholesterol Direct (50-130) mg/dL HDL Cholesterol (40-59) mg/dL Cholesterol/HDL Ratio % Urine Color (Yellow) Urine Turbidity (Clear) Urine pH (5.0-7.0) Ur Specific [place] (1.003-1.030) Urine Protein (Negative) mg/dL Urine Glucose (UA) (Negative) mg/dL Urine Ketones (Negative) mg/dL Urine Blood (Negative) Urine Nitrite (Negative) Urine Bilirubin (Negative) Urine Urobilinogen (<2.0) mg/dL Ur Leukocyte Esterase (Negative) Urine WBC (Auto) (0.0-6.0) /HPF Urine RBC (Auto) (0.0-6.0) /HPF U Epithel Cells (Auto) (0-13.0) /HPF Urine Bacteria (Auto) (Negative) /HPF Urine Mucus /HPF 10/13/19 10/13/19 Range/Units 03:57 Unknown WBC (4.5-11.0) K/mm3 RBC (3.65-5.03) M/mm3 Hgb (10.1-14.3) gm/dl Hct (30.3-42.9) % MCV (79-97) fl MCH (28-32) pg MCHC (30-34) % RDW (13.2-15.2) % Plt Count (140-440) K/mm3 PT 23.0 H (12.2-14.9) Sec. INR 2.10 H (0.87-1.13) APTT (24.2-36.6) Sec. ABG pH 7.324 L (7.350-7.450) pH Units ABG pCO2 20.6 mm Hg ABG pO2 404.7 H (80.0-90.0) mm Hg ABG HCO3 10.5 L (20.0-26.0) mmol/L ABG O2 Saturation 99.6 H (95.0-99.0) % ABG O2 Content 9.2 (0.0-44) ABG Base Excess -14.3 L (-2.0-3.0) mmol/L ABG Hemoglobin 5.8 L (12.0-16.0) gm/dl ABG Carboxyhemoglobin 1.3 (0.0-5.0) % ABG Methemoglobin 0.5 (0.0-1.5) % Oxyhemoglobin 97.8 (95.0-99.0) % FiO2 100 % Sodium (137-145) mmol/L Potassium (3.6-5.0) mmol/L Chloride (98-107) mmol/L Carbon Dioxide (22-30) mmol/L Anion Gap mmol/L BUN (7-17) mg/dL Creatinine (0.7-1.2) mg/dL Estimated GFR ml/min BUN/Creatinine Ratio % Glucose (65-100) mg/dL POC Glucose (70-105) Lactic Acid (0.7-2.0) mmol/L Calcium (8.4-10.2) mg/dL Total Bilirubin (0.1-1.2) mg/dL AST (5-40) units/L ALT (7-56) units/L Alkaline Phosphatase (35-129) units/L Troponin T (0.00-0.029) ng/mL Total Protein (6.3-8.2) g/dL Albumin (3.9-5) g/dL Albumin/Globulin Ratio % Triglycerides (2-149) mg/dL Cholesterol (50-199) mg/dL LDL Cholesterol Direct (50-130) mg/dL HDL Cholesterol (40-59) mg/dL Cholesterol/HDL Ratio % Urine Color (Yellow) Urine Turbidity (Clear) Urine pH (5.0-7.0) Ur Specific [place] (1.003-1.030) Urine Protein (Negative) mg/dL Urine Glucose (UA) (Negative) mg/dL Urine Ketones (Negative) mg/dL Urine Blood (Negative) Urine Nitrite (Negative) Urine Bilirubin (Negative) Urine Urobilinogen (<2.0) mg/dL Ur Leukocyte Esterase (Negative) Urine WBC (Auto) (0.0-6.0) /HPF Urine RBC (Auto) (0.0-6.0) /HPF U Epithel Cells (Auto) (0-13.0) /HPF Urine Bacteria (Auto) (Negative) /HPF Urine Mucus /HPF - EKG Data -: EKG Interpreted by Or EKG shows normal: sinus rhythm, axis, intervals, QRS complexes, ST-T waves Rate: tachycardia - Radiology Data Radiology results: report reviewed, image reviewed - Medical Decision Making 59-year-old female presents to ED with altered mental status and acute respiratory distress with severe hypoglycemia. Patient was intubated upon arrival. We were unable to obtain a reliable waveform on the pulse ox, however O2 sats on ABG were acceptable. Chest x-ray showed no acute abnormalities. Central line was placed. Patient was given IV fluids, antibiotics, and pressors were initiated. Labs show acute on chronic renal failure, with normal potassium. CBC did not result, according to nurse, lab requested a redraw due to multiple abnormalities. Urine appeared very cloudy and red, possible source of infection. Unable to evaluate patient any further with CT scans because she became quite unstable with hypotension and going into cardiac arrest 4 different times. On the 4th code we were not able to resuscitate patient. Time of was called at 4:11 AM. Family notified. - Differential Diagnosis ACS, sepsis, CVA, PE Critical Care Time: Yes Critical care time in (mins) excluding proc time.: 35 Critical care attestation.: If time is entered above; I have spent that time in minutes in the direct care of this critically ill patient, excluding procedure time. Critical Care Time: 35 min ED Disposition Clinical Impression: Hypoglycemia, Acute respiratory failure, Cardiac arrest, Sepsis, Acute on chronic renal failure Disposition: DC-20 Is pt being admited?: No Condition: Stable Referrals: PRIMARY CARE, [Primary Care Provider] - 3-5 Days
[2019-10-13 03:21] LABS: Albumin 1.8 g/dL (3.9-5); Calcium 6.8 mg/dL (8.4-10.2)
[2019-10-13 03:50] VITALS: BP 234/32
[2019-10-13 04:21] LABS: Mean Corpuscular HGB Conc 28 % (30-34); Red Blood Count 1.24 M/mm3 (3.65-5.03); Red Cell Distribution Width 16.9 % (13.2-15.2)
[2019-10-13 04:34] LABS: INR 2.1 (0.87-1.13)
[2019-10-13 04:50] LABS: Bacteria,Urine 1+ /HPF (Negative); Bilirubin,Urine NEG (Negative); Blood,Urine LG (Negative); Color,Urine Yellow (Yellow); Mucus,Urine 3+ /HPF; Urobilinogen,Urine < 2.0 mg/dL (<2.0)
[2019-10-13 04:57] LABS: RBC,Urine > 182.0 /HPF (0.0-6.0)
[2019-10-13 05:06] LABS: Hematocrit 13.8 % (30.3-42.9); Hemoglobin 3.9 gm/dl (10.1-14.3); Mean Corpuscular Volume 111 fl (79-97); Platelet Count 10 K/mm3 (140-440)
[2019-10-13 05:13] LABS: Chol/HDL Ratio 10.85 %
[2019-10-13 06:43] LABS: Basophils % (Manual) 0 % (0.0-1.8); Eosinophils % (Manual) 0 % (0.0-4.3); Total Cells Counted 100
[2019-10-13 06:45] LABS: Anisocytosis 1+
[2019-10-13 06:46] LABS: Platelet Estimate Cons
[2019-10-13] MEDS ORDERED: ETOMIDATE 20 MG/10 ML INJ IV ONE (10:00)
[2019-10-13] MEDS ORDERED: EPINEPHrine 1 MG/10 ML SYRINGE ONE (10:00)
[2019-10-13] MEDS ORDERED: SUCCINYLCHOLINE CHLORIDE 200 MG/10 ML INJ MDV ONE (10:00)
[2019-10-13] MEDS ORDERED: SODIUM BICARB 8.4% 50 MEQ/50 ML SYRINGE IV ONE (10:00)
== END 2019-10-13 05:00 ==
LOC: ED 00:53
DX: I46.9 Cardiac arrest, cause unspecified (principal); E16.2 Hypoglycemia, unspecified; J96.00 Acute respiratory failure, unspecified whether with hypoxia or hypercapnia; I12.9 Hypertensive chronic kidney disease with stage 1 through stage 4 chronic kidney disease, or unspecified chronic kidney disease; N18.9 Chronic kidney disease, unspecified; A41.9 Sepsis, unspecified organism; Z90.49 Acquired absence of other specified parts of digestive tract; Z90.710 Acquired absence of both cervix and uterus; Z98.890 Other specified postprocedural states; Z79.899 Other long term (current) drug therapy; Z88.8 Allergy status to other drugs, medicaments and biological substances
CPT/HCPCS: 31500; 36415; 36556; 71045; 80053; 80061; 81001; 82140; 82803; 82962; 84484; 85007; 85025; 85610; 85730; 87040; 87086; 93005; 96365; 96368; 96375; 99291; J0171; J0330; J0692; 94002; 96366; J3370; J7050